=== PATIENT | male | born 1975 | race Caucasian/White ===

== ENCOUNTER → 2016-09-25 | Outpatient (CLI) | payer OTHER ==
[~2016-09-25] MED LIST: ADVIL200 MG PO; ASPIRIN81 M1 PO; ATORVASTATIN CA10 M1 PO; BACTRIM 400 MG-1 TAB PO; BACTRIM DS 8001 TA1 PO; BACTRIM DS 8001 TAB PO; BUMETANIDE2 MG PO; Bactrim Ds 8001 TAB PO; CATAPRES-TTS 30.3 MG T; CELLCEPT250 MG PO; CLONIDINE0.3 MG PO; CORDROL20 MG PO; COREG25 MG PO; DOXYCYCLINE100 M3 PO; DUONEB 3 MG/3 ML3 M1 INH; EFFEXOR37.5 MG PO; FERROUS GLUCON325 M1 PO; FERROUS SULFAT325 M1 PO; FISH OIL1000 MG PO; HUMALOG MIX 50/10 ML; HUMALOG MIX 50/10 ML SC; HUMALOG MIX 50/53 M1 SC; HUMALOG100 U/ML SC; HYDRALAZINE100 MG PO; IMURAN100 MG PO; IMURAN50 MG PO; IRON325 MG PO; LOPRESSOR; LOPRESSOR100 MG PO; MACROBID100 M1 PO; MYFORTIC360 MG PO; NASONEX0.05 MG/AC NAS; NASONEX0.05 MG/AC NS; NEORAL100 MG PO; NEPHROCAPS; NEPHROCAPS1 SGL PO; NORVASC10 MG PO; ORASONE10 MG PO; ORASONE5 MG PO; PHOSLO667 M1 PO; PHOSLO667 MG PO; PREDNISONE10 MG PO; PREDNISONE5 MG PO; PRILOSEC20 M1 PO; PRILOSEC40 MG PO; PROCRIT20000 U/ML IJ; RAPAMUNE1 MG PO; RAPAMUNE2 MG PO; SODIUM BICARBO650 MG PO; SYNTHROID,LEVO25 MCG PO; SYNTHROID0.025 MG PO; Synthroid,Levo25 MCG PO; Synthroid,Levo50 MCG PO; VASOTEC10 MG PO; VASOTEC5 MG PO; VENLAFAXINE H37.5 M5 PO; VICODIN 5/500 505 MG PO; VITAMIN C100 M1 PO; ZOCOR20 MG PO; ZOCOR5 MG; ZOFRAN ODT4 MG SL; ZOFRAN4 MG PO; ZORTRESS0.5 MG PO; [UNRECOGNIZED DRUG - OTHER] PO
[2016-09-25 10:43] LABS: BASO % 0.1 % (0.0-1.0); EOS # 0.1 10*3/uL (0.0-0.4); EOS % 1.3 % (1.0-4.0); HEMATOCRIT 39.5 % (42.0-52.0); HEMOGLOBIN 11.8 g/dl (14.0-18.0); LYMPH # 0.5 10*3/uL (1.3-4.4); MEAN CELL VOLUME 87.4 fl (80.0-94.0); MEAN CORPUSCULAR HGB 26.1 pg (27.0-31.0); MEAN CORPUSCULAR HGB CONC 29.9 g/dl (33.0-37.0); MEAN PLATELET VOLUME 9.5 fl (9.6-12.3); MONO # 0.6 10*3/uL (0.1-1.0); MONO % 8.9 % (3.0-9.0); NEUT # 5.7 10*3/uL (2.3-7.9); NEUT % 82.4 % (47.0-73.0); PLATELET COUNT AUTOMATED 272 10*3/uL (130-400); RED BLOOD COUNT 4.52 10*6/uL (4.50-5.90); RED CELL DISTRI WIDTH 14.6 % (0-14.5); WHITE BLOOD COUNT 6.9 10*3/uL (4.8-10.8)
[2016-09-25 10:49] LABS: URINE TP/CRE RATIO 1.6 (<0.21)
[2016-09-25 11:01] LABS: ALBUMIN 3.5 gm/dl (3.1-4.5); ALKALINE PHOSPHATASE 88 U/L (45-117); BILIRUBIN, TOTAL 0.5 mg/dl (0.2-1.0); BUN 26 mg/dl (7-24); CARBON DIOXIDE 29 mmol/L (21-32); CHLORIDE 106 mmol/L (98-107); EST GLOM FILT AFRICAN AMERICAN > 60 ml/min; GLUCOSE 97 mg/dL (65-99); POTASSIUM 5.4 mmol/L (3.5-5.1); SGOT/AST 29 IU/L (3-35); SGPT/ALT 43 U/L (12-78); SODIUM 144 mmol/L (136-145); TOTAL PROTEIN 6.2 gm/dL (6.4-8.2)
[2016-09-25 11:10] LABS: FREE T4 1.36 ng/dl (0.76-1.46); MAGNESIUM 1.9 mg/dL (1.5-2.1); PHOSPHOROUS 3.2 mg/dL (2.5-4.9); THYROID STIM HORMONE (HS) 1.47 uIU/ml (0.358-4.75); URIC ACID 4.3 mg/dL (3.5-7.2)
[2016-09-26 09:10] LABS: TRANSFERRIN 004937 142 mg/dL (200-370)
[2016-09-26 14:06] LABS: CYCLOSPORINE, BLOOD 355 ng/mL (100-400)
[2016-09-28 00:08] LABS: EVEROLIMUS 7.1 ng/mL (3.0-8.0)
== END | disposition home or self-care (01) ==
LOC: LAB 09:54
PROVIDERS: Surgery
DX: D50.9 Iron deficiency anemia, unspecified (principal); E03.9 Hypothyroidism, unspecified; Z94.0 Kidney transplant status; Z79.899 Other long term (current) drug therapy

== ENCOUNTER → 2016-10-08 | Outpatient (CLI) | payer OTHER ==
[2016-10-08 10:42] LABS: BASO % 0.2 % (0.0-1.0); EOS # 0.1 10*3/uL (0.0-0.4); EOS % 1.6 % (1.0-4.0); HEMATOCRIT 40.4 % (42.0-52.0); HEMOGLOBIN 12.3 g/dl (14.0-18.0); LYMPH # 0.5 10*3/uL (1.3-4.4); LYMPH % 8.3 % (27.0-41.0); MEAN CELL VOLUME 86.7 fl (80.0-94.0); MEAN CORPUSCULAR HGB 26.4 pg (27.0-31.0); MEAN CORPUSCULAR HGB CONC 30.4 g/dl (33.0-37.0); MEAN PLATELET VOLUME 9.2 fl (9.6-12.3); MONO # 0.6 10*3/uL (0.1-1.0); MONO % 10.1 % (3.0-9.0); NEUT # 4.4 10*3/uL (2.3-7.9); NEUT % 79.6 % (47.0-73.0); PLATELET COUNT AUTOMATED 247 10*3/uL (130-400); RED BLOOD COUNT 4.66 10*6/uL (4.50-5.90); RED CELL DISTRI WIDTH 14.4 % (0-14.5); WHITE BLOOD COUNT 5.5 10*3/uL (4.8-10.8)
[2016-10-08 11:02] LABS: URINE TP/CRE RATIO 1.2 (<0.21)
[2016-10-08 11:19] LABS: ALBUMIN 3.8 gm/dl (3.1-4.5); ALKALINE PHOSPHATASE 98 U/L (45-117); BILIRUBIN, TOTAL 0.4 mg/dl (0.2-1.0); BUN 29 mg/dl (7-24); CARBON DIOXIDE 28 mmol/L (21-32); CHLORIDE 110 mmol/L (98-107); CHOLESTEROL 221 mg/dL (<200); EST GLOM FILT AFRICAN AMERICAN > 60 ml/min; FREE T4 1.24 ng/dl (0.76-1.46); GLUCOSE 93 mg/dL (65-99); HDL CHOLESTEROL 62 mg/dl (40-60); IRON 49 ug/dL (65-175); IRON SATURATION 26 %; LDL CHOLESTEROL 124 mg/dL (9-159); MAGNESIUM 1.8 mg/dL (1.5-2.1); POTASSIUM 4.9 mmol/L (3.5-5.1); SGOT/AST 46 IU/L (3-35); SGPT/ALT 61 U/L (12-78); SODIUM 145 mmol/L (136-145); TOTAL PROTEIN 6.5 gm/dL (6.4-8.2); TRIGLYCERIDES 176 mg/dl (<150); UIBC 133 ug/dL (110-410); URIC ACID 4.6 mg/dL (3.5-7.2); VLDL CHOLESTEROL 35 mg/dL (6-40)
[2016-10-09 09:06] LABS: TRANSFERRIN 004937 141 mg/dL (200-370)
[2016-10-09 13:07] LABS: CYCLOSPORINE, BLOOD 413 ng/mL (100-400)
[2016-10-10 18:04] LABS: EVEROLIMUS 7.7 ng/mL (3.0-8.0)
== END | disposition home or self-care (01) ==
LOC: LAB 10:06
DX: D50.9 Iron deficiency anemia, unspecified (principal); Z79.899 Other long term (current) drug therapy; Z94.0 Kidney transplant status

== ENCOUNTER → 2016-12-07 | Outpatient (CLI) | payer OTHER ==
[2016-12-07 10:05] LABS: BASO % 0.1 % (0.0-1.0); EOS # 0.1 10*3/uL (0.0-0.4); EOS % 1.1 % (1.0-4.0); HEMATOCRIT 42.9 % (42.0-52.0); HEMOGLOBIN 13.5 g/dl (14.0-18.0); LYMPH # 0.5 10*3/uL (1.3-4.4); LYMPH % 6.5 % (27.0-41.0); MEAN CELL VOLUME 84.6 fl (80.0-94.0); MEAN CORPUSCULAR HGB 26.6 pg (27.0-31.0); MEAN CORPUSCULAR HGB CONC 31.5 g/dl (33.0-37.0); MEAN PLATELET VOLUME 9.3 fl (9.6-12.3); MONO # 0.6 10*3/uL (0.1-1.0); MONO % 7.6 % (3.0-9.0); NEUT # 6.8 10*3/uL (2.3-7.9); NEUT % 84.5 % (47.0-73.0); PLATELET COUNT AUTOMATED 235 10*3/uL (130-400); RED BLOOD COUNT 5.07 10*6/uL (4.50-5.90); RED CELL DISTRI WIDTH 13.4 % (0-14.5); WHITE BLOOD COUNT 8.1 10*3/uL (4.8-10.8)
[2016-12-07 10:27] LABS: BUN 29 mg/dl (7-24); CARBON DIOXIDE 29 mmol/L (21-32); CHLORIDE 111 mmol/L (98-107); EST GLOM FILT AFRICAN AMERICAN > 60 ml/min; GLUCOSE 96 mg/dL (65-99); POTASSIUM 5.4 mmol/L (3.5-5.1); SODIUM 147 mmol/L (136-145)
== END | disposition home or self-care (01) ==
LOC: LAB 09:48
PROVIDERS: Internal Medicine Nephrology
DX: D50.9 Iron deficiency anemia, unspecified (principal); Z79.899 Other long term (current) drug therapy; Z94.0 Kidney transplant status

== ENCOUNTER → 2016-12-25 | Outpatient (CLI) | payer OTHER ==
[2016-12-25 10:18] LABS: BASO % 0.3 % (0.0-1.0); EOS # 0.1 10*3/uL (0.0-0.4); EOS % 1.4 % (1.0-4.0); HEMATOCRIT 43.5 % (42.0-52.0); HEMOGLOBIN 13.5 g/dl (14.0-18.0); LYMPH # 0.5 10*3/uL (1.3-4.4); LYMPH % 6.1 % (27.0-41.0); MEAN CELL VOLUME 83.8 fl (80.0-94.0); MEAN PLATELET VOLUME 9.2 fl (9.6-12.3); MONO # 0.7 10*3/uL (0.1-1.0); MONO % 8.5 % (3.0-9.0); NEUT # 6.4 10*3/uL (2.3-7.9); NEUT % 83.3 % (47.0-73.0); PLATELET COUNT AUTOMATED 232 10*3/uL (130-400); RED BLOOD COUNT 5.19 10*6/uL (4.50-5.90); RED CELL DISTRI WIDTH 13.5 % (0-14.5); WHITE BLOOD COUNT 7.7 10*3/uL (4.8-10.8)
[2016-12-25 10:48] LABS: ALBUMIN 3.7 gm/dl (3.1-4.5); BILIRUBIN, TOTAL 0.4 mg/dl (0.2-1.0); PHOSPHOROUS 3.2 mg/dL (2.5-4.9); TOTAL PROTEIN 6.5 gm/dL (6.4-8.2)
[2016-12-25 10:49] LABS: URIC ACID 6.2 mg/dL (3.5-7.2)
== END | disposition home or self-care (01) ==
LOC: LAB 10:02
PROVIDERS: Internal Medicine Nephrology
DX: D50.9 Iron deficiency anemia, unspecified (principal); Z94.0 Kidney transplant status; Z79.899 Other long term (current) drug therapy

== ENCOUNTER → 2017-02-11 | Outpatient (CLI) | payer OTHER ==
[2017-02-11 10:57] LABS: BASO % 0.1 % (0.0-1.0); EOS # 0.1 10*3/uL (0.0-0.4); EOS % 1.7 % (1.0-4.0); HEMATOCRIT 43.1 % (42.0-52.0); HEMOGLOBIN 13.4 g/dl (14.0-18.0); LYMPH # 0.6 10*3/uL (1.3-4.4); LYMPH % 7.6 % (27.0-41.0); MEAN CELL VOLUME 83.9 fl (80.0-94.0); MEAN CORPUSCULAR HGB 26.1 pg (27.0-31.0); MEAN CORPUSCULAR HGB CONC 31.1 g/dl (33.0-37.0); MEAN PLATELET VOLUME 9.1 fl (9.6-12.3); MONO # 0.6 10*3/uL (0.1-1.0); MONO % 8.6 % (3.0-9.0); NEUT # 6.1 10*3/uL (2.3-7.9); NEUT % 81.6 % (47.0-73.0); PLATELET COUNT AUTOMATED 236 10*3/uL (130-400); RED BLOOD COUNT 5.14 10*6/uL (4.50-5.90); RED CELL DISTRI WIDTH 14.2 % (0-14.5); WHITE BLOOD COUNT 7.5 10*3/uL (4.8-10.8)
[2017-02-11 11:00] LABS: URINE TP/CRE RATIO 0.9 (<0.21)
[2017-02-11 11:16] LABS: HEMOGLOBIN A1c 5.7 % (4.8-5.6)
[2017-02-11 11:24] LABS: ALBUMIN 3.7 gm/dl (3.1-4.5); MAGNESIUM 1.6 mg/dL (1.5-2.1); POTASSIUM 5.7 mmol/L (3.5-5.1)
[2017-02-11 11:30] LABS: BILIRUBIN, TOTAL 0.5 mg/dl (0.2-1.0); PHOSPHOROUS 3.4 mg/dL (2.5-4.9); TOTAL PROTEIN 7.1 gm/dL (6.4-8.2); URIC ACID 5.6 mg/dL (3.5-7.2)
[2017-02-11 13:20] LABS: PTH INTACT 121.2 pg/mL (14.0-72.0)
[2017-02-12 08:11] LABS: TRANSFERRIN 004937 145 mg/dL (200-370)
[2017-02-12 15:09] LABS: CYCLOSPORINE, BLOOD 553 ng/mL (100-400)
[2017-02-13 16:11] LABS: EVEROLIMUS 8.5 ng/mL (3.0-8.0)
== END | disposition home or self-care (01) ==
LOC: LAB 10:30
PROVIDERS: Internal Medicine Nephrology
DX: D50.9 Iron deficiency anemia, unspecified (principal); Z79.899 Other long term (current) drug therapy; Z94.0 Kidney transplant status

== ENCOUNTER → 2017-02-21 | Outpatient (CLI) | payer OTHER ==
[2017-02-21 10:30] LABS: BASO % 0.1 % (0.0-1.0); EOS # 0.1 10*3/uL (0.0-0.4); EOS % 1.3 % (1.0-4.0); HEMATOCRIT 39.7 % (42.0-52.0); HEMOGLOBIN 12.6 g/dl (14.0-18.0); LYMPH # 0.6 10*3/uL (1.3-4.4); LYMPH % 6.3 % (27.0-41.0); MEAN CELL VOLUME 83.1 fl (80.0-94.0); MEAN CORPUSCULAR HGB 26.4 pg (27.0-31.0); MEAN CORPUSCULAR HGB CONC 31.7 g/dl (33.0-37.0); MEAN PLATELET VOLUME 9.2 fl (9.6-12.3); MONO # 0.8 10*3/uL (0.1-1.0); MONO % 8.8 % (3.0-9.0); NEUT # 7.9 10*3/uL (2.3-7.9); NEUT % 83.3 % (47.0-73.0); PLATELET COUNT AUTOMATED 279 10*3/uL (130-400); RED BLOOD COUNT 4.78 10*6/uL (4.50-5.90); RED CELL DISTRI WIDTH 14.4 % (0-14.5); WHITE BLOOD COUNT 9.5 10*3/uL (4.8-10.8)
[2017-02-21 10:35] LABS: BILIRUBIN NEGATIVE (NEGATIVE); BLOOD TRACE-INTACT (NEGATIVE); CLARITY SL CLOUDY (CLEAR); COLOR YELLOW (YELLOW); GLUCOSE NEGATIVE (NEGATIVE); KETONE NEGATIVE (NEGATIVE); LEUKO ESTERASE 3+ (NEGATIVE); NITRITE NEGATIVE (NEGATIVE); PH 6.5 (5.0-9.0); PROTEIN 1+ (NEGATIVE); UROBILINOGEN 0.2 E.U./dl (0.2-1.0)
[2017-02-21 10:42] LABS: URINE TP/CRE RATIO 1.5 (<0.21)
[2017-02-21 10:58] LABS: ALBUMIN 3.5 gm/dl (3.1-4.5); BILIRUBIN, TOTAL 0.5 mg/dl (0.2-1.0); POTASSIUM 5.2 mmol/L (3.5-5.1); TOTAL PROTEIN 6.5 gm/dL (6.4-8.2)
[2017-02-21 12:01] LABS: WBC 51-100 wbc/hpf (0-5)
[2017-02-21 12:02] LABS: BACTERIA 1+; MUCOUS 1+; RBC 16-20 rbc/hpf (0-2)
== END | disposition home or self-care (01) ==
LOC: LAB 10:01
PROVIDERS: Internal Medicine Nephrology
DX: I12.0 Hypertensive chronic kidney disease with stage 5 chronic kidney disease or end stage renal disease (principal); N18.6 End stage renal disease; I25.10 Atherosclerotic heart disease of native coronary artery without angina pectoris; E78.5 Hyperlipidemia, unspecified; E03.9 Hypothyroidism, unspecified; D50.9 Iron deficiency anemia, unspecified; Z79.899 Other long term (current) drug therapy; Z94.0 Kidney transplant status

== ENCOUNTER 2017-03-01 13:53 | Inpatient (IN) | payer OTHER ==
[~2017-03-01] VITALS: Ht 180.3 cm; Wt 65.5 kg
--- NOTE | ~2017-03-01 | CON ---
[place], [place] REPORT OF CONSULTATION NAME: PAUL JANE [facility] #: [id number] UNIT #: [id number] ROOM: 512 DOCTOR: LORENZO DOLL MD BIRTHDATE: [birth year] DOS: 03/02/2017 NEPHROLOGY CONSULTATION REASON FOR CONSULTATION: Elevated creatinine/history of kidney and pancreas transplant. HISTORY OF PRESENT ILLNESS: The patient is a 41-year-old male. He has a history of a renal and pancreas transplant. The details are not quite clear. The patient reports he had his transplant in [facility]. This is his second transplant apparently. This occurred in 2014. He has a history of longstanding diabetes. The patient is on 3 immunosuppressive agents that includes 75 mg twice a day, prednisone 5 mg daily and Zortress 0.5 mg 3 tablets twice a day. His baseline creatinine on my review of the records seems to be somewhere in the middle to upper 1s range. 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 He follows with renal group in [place]. Apparently, he presented to the hospital with symptoms of UTI and severe fatigue and fever 102 at home. He had noted chills, some poor appetite, headaches, shortness of breath and fatigue. When he presented, he had an elevated white count and urinalysis seemed concerning for urine infection. He was admitted, started on IV antibiotics. The patient had a CT scan without contrast, which showed no abnormalities noted of the renal transplant. No hydronephrosis. There was a question of pneumonia, however. He clinically has improved with fluids and antibiotics. He still is having some dysuria, however, explained to me. He denied current chest pain, shortness of breath, nausea or vomiting. He is compliant with his medications. ALLERGIES: No known drug allergies. HOME MEDICATIONS: Included aspirin, Coreg, 75 mg twice a day, Zortress 1.5 mg twice a day, DuoNeb, levothyroxine, Nasonex, Prilosec, prednisone 5 mg daily, sodium bicarbonate tablets twice a day, Bactrim daily, Flomax daily. PAST MEDICAL HISTORY: 1. End-stage renal disease, previously on dialysis. 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 Most recent transplant in 2014. 2. Coronary artery disease, status post stenting. 3. History of longstanding diabetes. 4. GERD. 5. Metabolic acidosis. 6. Dialysis catheter insertion and removal. 7. Transplant nephrectomy and pancreatectomy. FAMILY HISTORY: Negative for chronic kidney disease, otherwise noncontributory. SOCIAL HISTORY: No tobacco, alcohol or illicit drugs. REVIEW OF SYSTEMS: As per HPI, otherwise a 10-point review of systems was reviewed and was negative. [place], [place] REPORT OF CONSULTATION NAME: PAUL JANE UNIT #: [id number] ROOM: 512 DOCTOR: LORENZO DOLL MD BIRTHDATE: [birth year] PHYSICAL EXAMINATION: VITAL SIGNS: Temperature 97.4, pulse 83, respiratory rate 20, blood pressure 131/61. GENERAL: He is pleasant, alert, awake, oriented x 3, no acute distress. HEENT: Shows no JVD. Sclerae are anicteric. Mucous membranes are moist. Pharynx is clear. NECK: Supple. Trachea is midline. There is no neck lymphadenopathy. There is no thyromegaly. LUNGS: Diminished breath sounds. No appreciable wheezes, not using accessory muscles of respiration. HEART: Normal S1, S2. No rub, no thrill, no gallop. ABDOMEN: Soft, nontender. There is no organomegaly or rigidity. There is no rebound or guarding. There is no CVA tenderness. EXTREMITIES: Had no edema. There is no lower extremity lymphadenopathy. Distal pulses are 2+. SKIN: Showed no overt rash. There are no petechiae or purpura. Skin temperature is warm. NEUROLOGIC: He is awake and alert. He is following commands. Cranial nerves are intact. LABORATORY DATA: Reviewed. Urine culture was negative to date. BUN 38, creatinine 1.85, sodium 142, potassium 4.8, CO2 of 24, calcium 7.7, phosphorus 2.9, magnesium 1.5, hemoglobin 10.9, white count of 12.8, platelets of 187. IMPRESSION: 1. Status post simultaneous pancreas and kidney transplant with baseline creatinine appears to be in the middle to upper ones range. 2. Fever with questionable urinary tract infection/urosepsis. There is a questionable pneumonia as well noted on imaging study. 3. Anemia. 4. Longstanding diabetes mellitus, now status post pancreas transplant. 5. Hypothyroidism. 6. Coronary artery disease. 7. Metabolic acidosis, controlled with bicarb tablets. PLAN: 1. Continue venous supression. 2. Follow cultures. 3. Dose medication for current creatinine clearance. 4. Avoid contrast study. 5. Replace electrolytes as needed. 6. Would avoid Lovenox and change to subQ heparin for DVT prophylaxis. Thank you for this consultation. We will follow with you. [place], [place] REPORT OF CONSULTATION NAME: LUCINDAPAUL Jameson UNIT #: [id number] ROOM: [facility] DOCTOR: LORENZO DOLL MD BIRTHDATE: [birth year] LORENZO DOLL MD CM:CONSTR:REPORT OF CONSULTATION 1618 03/03/17 1014 interface
--- NOTE | ~2017-03-01 | PR ---
[place], [place] PROGRESS NOTE NAME: PAUL JANE UNIT #: [id number] ROOM: 512 DOCTOR: SHARMILA LOUISLORENZO Welch BIRTHDATE: [birth year] DOS: SUBJECTIVE: The patient was seen and examined. He is awake and alert. Denies shortness of breath, nausea or vomiting. He does state that he is feeling better. He has not had fevers, chills or night sweats. Fluids are ongoing. He denied feeling bloated. PHYSICAL EXAMINATION: VITAL SIGNS: Temperature 97.6, pulse 78, respiratory rate 18, blood pressure 150/70. HEENT: Shows no JVD. LUNGS: Fairly clear. HEART: Normal S1, S2. No rub, thrill or gallop. ABDOMEN: Soft and nontender. I do not appreciate organomegaly. EXTREMITIES: Showed no edema. SKIN: Showed no rash. LABORATORY DATA: Hemoglobin 11.0, white count of 8.7, platelets of 186. Sodium 147, potassium 5.0, CO2 of 22, BUN 35, creatinine 1.6, glucose 104, calcium 8.3. Urine culture showed no growth to date. Blood cultures showed no growth to date. IMPRESSION AND PLAN: 1. Status post simultaneous pancreas-kidney transplant, baseline creatinine appears to be in the middle to upper ones range. The patient's renal function is stable and at baseline. He is to continue his current immunosuppression. We would discontinue IV fluids at this point. He has mild hypernatremia. Encourage oral fluid intake. 2. Fever with questionable urinary tract infection/sepsis/pneumonia. Culture data has been negative to date. Continue to follow cultures. He symptomatically and clinically has improved with antibiotics. Continue antibiotics for now. Would check a cyclosporine level at some point, but no change to dosages of the patient's immunosuppression. 3. Anemia. Follow H and H. Transfuse as needed. 4. Hypothyroidism. Continue meds. 5. Coronary artery disease. Stable. 6. Metabolic acidosis. Bicarbonate tablets, we will continue. 7. Hypertension. Continue medications. Adjust as needed. 8. Deep venous thrombosis prophylaxis. We would recommend not using Lovenox and use subQ heparin. [place], [place] PROGRESS NOTE [id number] #: [id number] ROOM: 512 DOCTOR: LORENZO DOLL MD BIRTHDATE: [birth year] LORENZO DOLL MD CM:PNTRANS [id number] LORENZO DOLL MD 03/04/170 interface
[2017-03-01 13:55] VITALS: BP 171/78
[2017-03-01] MEDS ORDERED: NORVASC5 MG PO (14:02)
[2017-03-01] MEDS ORDERED: BACTRIM DS 8001 TA1 PO (14:03)
[2017-03-01 14:22] VITALS: BP 172/77
[2017-03-01 14:27] LABS: BILIRUBIN NEGATIVE (NEGATIVE); BLOOD TRACE-LYSED (NEGATIVE); CLARITY SL CLOUDY (CLEAR); COLOR YELLOW (YELLOW); GLUCOSE NEGATIVE (NEGATIVE); KETONE NEGATIVE (NEGATIVE); LEUKO ESTERASE 3+ (NEGATIVE); NITRITE NEGATIVE (NEGATIVE); PH 7.5 (5.0-9.0); PROTEIN 1+ (NEGATIVE); SPECIFIC GRAVITY 1.015 (1.005-1.030); UROBILINOGEN 0.2 E.U./dl (0.2-1.0)
[2017-03-01 14:36] LABS: HEMATOCRIT 40.1 % (42.0-52.0); HEMOGLOBIN 12.7 g/dl (14.0-18.0); MEAN CORPUSCULAR HGB 26.3 pg (27.0-31.0); MEAN CORPUSCULAR HGB CONC 31.7 g/dl (33.0-37.0); MEAN PLATELET VOLUME 9.7 fl (9.6-12.3); PLATELET COUNT AUTOMATED 209 10*3/uL (130-400); RED BLOOD COUNT 4.83 10*6/uL (4.50-5.90); RED CELL DISTRI WIDTH 14.6 % (0-14.5); WHITE BLOOD COUNT 14.5 10*3/uL (4.8-10.8)
[2017-03-01 14:45] LABS: PROTHROMBIN TIME 10.5 SECONDS (9.0-12.4)
[2017-03-01 14:52] LABS: ALBUMIN 3.6 gm/dl (3.1-4.5); ALKALINE PHOSPHATASE 92 U/L (45-117); BILIRUBIN, TOTAL 0.5 mg/dl (0.2-1.0); BUN 37 mg/dl (7-24); CARBON DIOXIDE 25 mmol/L (21-32); CHLORIDE 111 mmol/L (98-107); EST GLOM FILT AFRICAN AMERICAN 54 ml/min; GLUCOSE 109 mg/dL (65-99); POTASSIUM 4.8 mmol/L (3.5-5.1); SGOT/AST 46 IU/L (3-35); SGPT/ALT 62 U/L (12-78); SODIUM 144 mmol/L (136-145); TOTAL PROTEIN 6.4 gm/dL (6.4-8.2)
[2017-03-01 14:55] LABS: TROPONIN I < 0.015 ng/ml (<0.045)
[2017-03-01 14:58] LABS: BACTERIA 2+; EPITHELIAL CELLS 0-2; MUCOUS 1+; RBC 0-2 rbc/hpf (0-2); URINE REFLEX COMMENT YES (NO); WBC 21-30 wbc/hpf (0-5)
[2017-03-01 15:00] LABS: LYMPHOCYTE # 0.1 10*3/uL (1.3-4.4); MONOCYTE # 0.7 10*3/uL (0.1-1.0); NEUTROPHIL # 13.6 10*3/uL (2.3-7.9); NEUTROPHILS 94 % (47-73); PLATELET SUFFICIENCY NORMAL (NORMAL); TOTAL CELLS COUNTED 100 #CELLS
[2017-03-01 16:37] VITALS: BP 150/70
[2017-03-01] MEDS ORDERED: FLOMAX0.4 MG PO (16:37)
[2017-03-01 17:13] VITALS: BP 127/63
[2017-03-01] MEDS ORDERED: NASONEX0.05 MG/AC NAS (17:21)
[2017-03-01] MEDS ORDERED: LUTEIN6 M2 PO (17:25)
[2017-03-01 18:40] LABS: CKMB 0.6 ng/ml (0.5-3.6)
[2017-03-01] MEDS ORDERED: ZORTRESS0.5 MG PO (19:21)
[2017-03-01 20:00] VITALS: BP 133/61
[2017-03-02] VITALS: BP 110/57
[2017-03-02 00:21] LABS: CKMB < 0.5 ng/ml (0.5-3.6); CPK 105 U/L (39-308)
[2017-03-02 06:31] LABS: BASO % 0.1 % (0.0-1.0); EOS # 0.1 10*3/uL (0.0-0.4); EOS % 0.5 % (1.0-4.0); HEMATOCRIT 35.6 % (42.0-52.0); HEMOGLOBIN 10.9 g/dl (14.0-18.0); LYMPH # 0.4 10*3/uL (1.3-4.4); LYMPH % 2.9 % (27.0-41.0); MEAN CORPUSCULAR HGB 25.7 pg (27.0-31.0); MEAN CORPUSCULAR HGB CONC 30.6 g/dl (33.0-37.0); MEAN PLATELET VOLUME 9.9 fl (9.6-12.3); MONO % 7.6 % (3.0-9.0); NEUT # 11.3 10*3/uL (2.3-7.9); NEUT % 88.7 % (47.0-73.0); PLATELET COUNT AUTOMATED 187 10*3/uL (130-400); RED BLOOD COUNT 4.24 10*6/uL (4.50-5.90); RED CELL DISTRI WIDTH 14.8 % (0-14.5); WHITE BLOOD COUNT 12.8 10*3/uL (4.8-10.8)
[2017-03-02 06:46] LABS: CPK 82 U/L (39-308)
[2017-03-02 06:52] LABS: HEMOGLOBIN A1c 5.7 % (4.8-5.6)
[2017-03-02 06:54] LABS: CKMB < 0.5 ng/ml (0.5-3.6)
[2017-03-02 07:04] LABS: INTERNATIONAL NORM RATIO 1.1 (2.0-3.5); PROTHROMBIN TIME 11.4 SECONDS (9.0-12.4)
[2017-03-02 07:05] LABS: ALBUMIN 2.8 gm/dl (3.1-4.5); BILIRUBIN, TOTAL 0.4 mg/dl (0.2-1.0); FREE T4 1.03 ng/dl (0.76-1.46); MAGNESIUM 1.5 mg/dL (1.5-2.1); PHOSPHOROUS 2.9 mg/dL (2.5-4.9); POTASSIUM 4.8 mmol/L (3.5-5.1); TOTAL PROTEIN 5.4 gm/dL (6.4-8.2)
[2017-03-02 07:11] LABS: THYROID STIM HORMONE (HS) 0.435 uIU/ml (0.358-4.75)
[2017-03-02 08:00] VITALS: BP 118/62
[2017-03-02 08:37] LABS: VITAMIN D, 25-HYDROXY 5.1 ng/mL (30-100)
[2017-03-02 08:38] LABS: FOLIC ACID 4.08 ng/mL (>5.38)
[2017-03-02 12:00] VITALS: BP 116/59
[2017-03-02 16:00] VITALS: BP 131/61
[2017-03-02 20:00] VITALS: BP 152/60
[2017-03-03] VITALS: BP 152/80
[2017-03-03 06:11] LABS: EOS # 0.1 10*3/uL (0.0-0.4); EOS % 0.8 % (1.0-4.0); HEMATOCRIT 36.5 % (42.0-52.0); LYMPH # 0.6 10*3/uL (1.3-4.4); LYMPH % 7.1 % (27.0-41.0); MEAN CELL VOLUME 85.1 fl (80.0-94.0); MEAN CORPUSCULAR HGB 25.6 pg (27.0-31.0); MEAN CORPUSCULAR HGB CONC 30.1 g/dl (33.0-37.0); MEAN PLATELET VOLUME 10.3 fl (9.6-12.3); MONO # 0.9 10*3/uL (0.1-1.0); MONO % 10.6 % (3.0-9.0); NEUT # 7.1 10*3/uL (2.3-7.9); NEUT % 81.3 % (47.0-73.0); PLATELET COUNT AUTOMATED 186 10*3/uL (130-400); RED BLOOD COUNT 4.29 10*6/uL (4.50-5.90); RED CELL DISTRI WIDTH 14.6 % (0-14.5); WHITE BLOOD COUNT 8.7 10*3/uL (4.8-10.8)
[2017-03-03 08:00] VITALS: BP 160/88
[2017-03-03 12:00] VITALS: BP 150/70
[2017-03-03 16:00] VITALS: BP 153/59
[2017-03-03 20:00] VITALS: BP 148/67
[2017-03-04] VITALS: BP 160/89
[2017-03-04 08:00] VITALS: BP 176/71
[2017-03-04] MEDS ORDERED: PHARMASSURE FO0.4 MG PO (10:25)
[2017-03-04] MEDS ORDERED: VITAMIN D350000 UNIT PO (10:28)
[2017-03-04] MEDS ORDERED: AVPAK AZITHROM250 MG PO (10:28)
== END 2017-03-04 12:12 | disposition home or self-care (01) | DRG 871 ==
LOC: ED 13:53 → EDHOLD 16:30 → 5E 16:30
PROVIDERS: Emergency Medicine; Internal Medicine
DX: A41.9 Sepsis, unspecified organism (principal); J15.6 Pneumonia due to other Gram-negative bacteria; E43 Unspecified severe protein-calorie malnutrition; Z94.83 Pancreas transplant status; E11.22 Type 2 diabetes mellitus with diabetic chronic kidney disease; B44.81 Allergic bronchopulmonary aspergillosis; N39.0 Urinary tract infection, site not specified; Z94.0 Kidney transplant status; R65.20 Severe sepsis without septic shock; E87.8 Other disorders of electrolyte and fluid balance, not elsewhere classified; E03.9 Hypothyroidism, unspecified; N18.3 Chronic kidney disease, stage 3 (moderate); K21.9 Gastro-esophageal reflux disease without esophagitis; J40 Bronchitis, not specified as acute or chronic; D64.9 Anemia, unspecified; I25.10 Atherosclerotic heart disease of native coronary artery without angina pectoris; I25.2 Old myocardial infarction; Z95.5 Presence of coronary angioplasty implant and graft; Z82.49 Family history of ischemic heart disease and other diseases of the circulatory system; Z83.3 Family history of diabetes mellitus; Z79.82 Long term (current) use of aspirin; Z79.899 Other long term (current) drug therapy

== ENCOUNTER → 2017-03-12 | Outpatient (CLI) | payer OTHER ==
[~2017-03-12] MED LIST changes: +AVPAK AZITHROM250 MG PO; +FLOMAX0.4 MG PO; +LUTEIN6 M2 PO; +NORVASC5 MG PO; +PHARMASSURE FO0.4 MG PO; +VITAMIN D350000 UNIT PO
[2017-03-12 09:57] LABS: BASO % 0.2 % (0.0-1.0); EOS # 0.1 10*3/uL (0.0-0.4); EOS % 1.2 % (1.0-4.0); HEMATOCRIT 39.6 % (42.0-52.0); HEMOGLOBIN 12.2 g/dl (14.0-18.0); LYMPH # 0.6 10*3/uL (1.3-4.4); LYMPH % 11.4 % (27.0-41.0); MEAN CELL VOLUME 84.6 fl (80.0-94.0); MEAN CORPUSCULAR HGB 26.1 pg (27.0-31.0); MEAN CORPUSCULAR HGB CONC 30.8 g/dl (33.0-37.0); MEAN PLATELET VOLUME 9.2 fl (9.6-12.3); MONO # 0.6 10*3/uL (0.1-1.0); MONO % 11.2 % (3.0-9.0); NEUT # 3.8 10*3/uL (2.3-7.9); NEUT % 75.2 % (47.0-73.0); PLATELET COUNT AUTOMATED 313 10*3/uL (130-400); RED BLOOD COUNT 4.68 10*6/uL (4.50-5.90); RED CELL DISTRI WIDTH 14.6 % (0-14.5); WHITE BLOOD COUNT 5.1 10*3/uL (4.8-10.8)
[2017-03-12 10:12] LABS: BILIRUBIN NEGATIVE (NEGATIVE); BLOOD NEGATIVE (NEGATIVE); CLARITY SL CLOUDY (CLEAR); COLOR YELLOW (YELLOW); GLUCOSE NEGATIVE (NEGATIVE); KETONE NEGATIVE (NEGATIVE); LEUKO ESTERASE 3+ (NEGATIVE); NITRITE NEGATIVE (NEGATIVE); PROTEIN 1+ (NEGATIVE); SPECIFIC GRAVITY <= 1.005 (1.005-1.030); UROBILINOGEN 0.2 E.U./dl (0.2-1.0)
[2017-03-12 10:27] LABS: POTASSIUM 5.2 mmol/L (3.5-5.1)
[2017-03-12 11:04] LABS: BACTERIA 1+; MUCOUS 1+; WBC 16-20 wbc/hpf (0-5)
== END | disposition home or self-care (01) ==
LOC: LAB 09:29
PROVIDERS: Internal Medicine Nephrology
DX: I25.10 Atherosclerotic heart disease of native coronary artery without angina pectoris (principal); I10 Essential (primary) hypertension; E78.5 Hyperlipidemia, unspecified; E03.9 Hypothyroidism, unspecified; R05 Cough; D50.9 Iron deficiency anemia, unspecified; Z79.899 Other long term (current) drug therapy; Z94.0 Kidney transplant status

== ENCOUNTER → 2017-03-29 | Outpatient (CLI) | payer OTHER ==
[2017-03-29 09:55] LABS: BASO % 0.1 % (0.0-1.0); EOS # 0.1 10*3/uL (0.0-0.4); EOS % 1.6 % (1.0-4.0); HEMATOCRIT 40.6 % (42.0-52.0); HEMOGLOBIN 12.5 g/dl (14.0-18.0); LYMPH # 0.6 10*3/uL (1.3-4.4); LYMPH % 8.8 % (27.0-41.0); MEAN CELL VOLUME 85.7 fl (80.0-94.0); MEAN CORPUSCULAR HGB 26.4 pg (27.0-31.0); MEAN CORPUSCULAR HGB CONC 30.8 g/dl (33.0-37.0); MEAN PLATELET VOLUME 9.4 fl (9.6-12.3); MONO # 0.7 10*3/uL (0.1-1.0); NEUT # 5.3 10*3/uL (2.3-7.9); NEUT % 79.4 % (47.0-73.0); PLATELET COUNT AUTOMATED 191 10*3/uL (130-400); RED BLOOD COUNT 4.74 10*6/uL (4.50-5.90); RED CELL DISTRI WIDTH 14.8 % (0-14.5); WHITE BLOOD COUNT 6.7 10*3/uL (4.8-10.8)
[2017-04-01 15:07] LABS: CYCLOSPORINE, BLOOD 540 ng/mL (100-400)
== END | disposition home or self-care (01) ==
LOC: LAB 09:26
PROVIDERS: Internal Medicine Nephrology
DX: D50.9 Iron deficiency anemia, unspecified (principal); Z94.0 Kidney transplant status; Z79.899 Other long term (current) drug therapy

== ENCOUNTER → 2017-04-11 | Outpatient (CLI) | payer OTHER ==
[2017-04-11 09:53] LABS: BASO % 0.1 % (0.0-1.0); EOS # 0.1 10*3/uL (0.0-0.4); EOS % 1.2 % (1.0-4.0); HEMOGLOBIN 12.7 g/dl (14.0-18.0); LYMPH # 0.7 10*3/uL (1.3-4.4); LYMPH % 10.1 % (27.0-41.0); MEAN CORPUSCULAR HGB 26.7 pg (27.0-31.0); MEAN CORPUSCULAR HGB CONC 31.8 g/dl (33.0-37.0); MEAN PLATELET VOLUME 9.1 fl (9.6-12.3); MONO # 0.7 10*3/uL (0.1-1.0); MONO % 10.1 % (3.0-9.0); NEUT # 5.3 10*3/uL (2.3-7.9); NEUT % 78.2 % (47.0-73.0); PLATELET COUNT AUTOMATED 210 10*3/uL (130-400); RED BLOOD COUNT 4.76 10*6/uL (4.50-5.90); RED CELL DISTRI WIDTH 14.4 % (0-14.5); WHITE BLOOD COUNT 6.8 10*3/uL (4.8-10.8)
[2017-04-11 10:19] LABS: POTASSIUM 4.9 mmol/L (3.5-5.1)
== END | disposition home or self-care (01) ==
LOC: LAB 09:39
PROVIDERS: Internal Medicine Nephrology
DX: D50.9 Iron deficiency anemia, unspecified (principal); Z79.899 Other long term (current) drug therapy; Z94.0 Kidney transplant status

== ENCOUNTER → 2017-04-30 | Outpatient (CLI) | payer OTHER ==
[2017-04-30 09:44] LABS: BASO % 0.3 % (0.0-1.0); EOS # 0.1 10*3/uL (0.0-0.4); EOS % 1.5 % (1.0-4.0); HEMATOCRIT 42.3 % (42.0-52.0); HEMOGLOBIN 13.1 g/dl (14.0-18.0); LYMPH # 0.7 10*3/uL (1.3-4.4); LYMPH % 12.1 % (27.0-41.0); MEAN CELL VOLUME 84.4 fl (80.0-94.0); MEAN CORPUSCULAR HGB 26.1 pg (27.0-31.0); MEAN PLATELET VOLUME 9.6 fl (9.6-12.3); MONO # 0.7 10*3/uL (0.1-1.0); MONO % 11.6 % (3.0-9.0); NEUT # 4.4 10*3/uL (2.3-7.9); NEUT % 74.3 % (47.0-73.0); PLATELET COUNT AUTOMATED 217 10*3/uL (130-400); RED BLOOD COUNT 5.01 10*6/uL (4.50-5.90); WHITE BLOOD COUNT 5.9 10*3/uL (4.8-10.8)
[2017-04-30 10:12] LABS: ALBUMIN 3.7 gm/dl (3.1-4.5); BILIRUBIN, TOTAL 0.4 mg/dl (0.2-1.0); MAGNESIUM 1.7 mg/dL (1.5-2.1); PHOSPHOROUS 3.6 mg/dL (2.5-4.9); POTASSIUM 4.8 mmol/L (3.5-5.1); TOTAL PROTEIN 6.4 gm/dL (6.4-8.2); URIC ACID 6.5 mg/dL (3.5-7.2)
[2017-05-01 07:06] LABS: TRANSFERRIN 004937 142 mg/dL (200-370)
[2017-05-01 14:11] LABS: CYCLOSPORINE, BLOOD 384 ng/mL (100-400)
[2017-05-02 13:05] LABS: EVEROLIMUS 6.5 ng/mL (3.0-8.0)
== END | disposition home or self-care (01) ==
LOC: LAB 09:06
PROVIDERS: Internal Medicine Nephrology
DX: D50.9 Iron deficiency anemia, unspecified (principal); Z79.899 Other long term (current) drug therapy; Z94.0 Kidney transplant status

== ENCOUNTER → 2017-05-24 | Outpatient (CLI) | payer OTHER ==
[2017-05-24 09:53] LABS: BASO % 0.2 % (0.0-1.0); EOS # 0.1 10*3/uL (0.0-0.4); EOS % 1.1 % (1.0-4.0); HEMATOCRIT 43.2 % (42.0-52.0); HEMOGLOBIN 13.9 g/dl (14.0-18.0); LYMPH # 0.7 10*3/uL (1.3-4.4); LYMPH % 11.2 % (27.0-41.0); MEAN CELL VOLUME 83.6 fl (80.0-94.0); MEAN CORPUSCULAR HGB 26.9 pg (27.0-31.0); MEAN CORPUSCULAR HGB CONC 32.2 g/dl (33.0-37.0); MEAN PLATELET VOLUME 9.5 fl (9.6-12.3); MONO # 0.7 10*3/uL (0.1-1.0); MONO % 10.6 % (3.0-9.0); NEUT # 4.8 10*3/uL (2.3-7.9); NEUT % 76.6 % (47.0-73.0); PLATELET COUNT AUTOMATED 188 10*3/uL (130-400); RED BLOOD COUNT 5.17 10*6/uL (4.50-5.90); RED CELL DISTRI WIDTH 12.9 % (0-14.5); WHITE BLOOD COUNT 6.3 10*3/uL (4.8-10.8)
[2017-05-24 09:55] LABS: URINE CREATININE RANDOM 82.5 mg/dL
[2017-05-24 10:19] LABS: ALBUMIN 3.5 gm/dl (3.1-4.5); CREATININE 2.22 mg/dL (0.70-1.30); MAGNESIUM 1.9 mg/dL (1.5-2.1); POTASSIUM 4.8 mmol/L (3.5-5.1); TOTAL PROTEIN 6.3 gm/dL (6.4-8.2)
[2017-05-24 12:18] LABS: FERRITIN 618.4 ng/mL (22.0-322.0); PTH INTACT 119.4 pg/mL (14.0-72.0)
[2017-05-25 07:06] LABS: TRANSFERRIN 004937 129 mg/dL (200-370)
[2017-05-27 21:05] LABS: BK QUANTITATION PCR Negative (Negative)
[2017-05-28 16:08] LABS: CYCLOSPORINE, BLOOD 625 ng/mL (100-400)
== END | disposition home or self-care (01) ==
LOC: LAB 09:11
PROVIDERS: Internal Medicine Nephrology
DX: D50.9 Iron deficiency anemia, unspecified (principal); Z79.899 Other long term (current) drug therapy; Z94.0 Kidney transplant status

== ENCOUNTER → 2017-06-05 | Outpatient (CLI) | payer OTHER ==
[2017-06-05 11:31] LABS: BASO % 0.2 % (0.0-1.0); EOS # 0.1 10*3/uL (0.0-0.4); EOS % 1.3 % (1.0-4.0); HEMATOCRIT 41.5 % (42.0-52.0); HEMOGLOBIN 13.2 g/dl (14.0-18.0); LYMPH # 0.8 10*3/uL (1.3-4.4); LYMPH % 14.1 % (27.0-41.0); MEAN CORPUSCULAR HGB 26.7 pg (27.0-31.0); MEAN CORPUSCULAR HGB CONC 31.8 g/dl (33.0-37.0); MEAN PLATELET VOLUME 9.3 fl (9.6-12.3); MONO # 0.8 10*3/uL (0.1-1.0); MONO % 14.8 % (3.0-9.0); NEUT # 3.8 10*3/uL (2.3-7.9); NEUT % 69.2 % (47.0-73.0); PLATELET COUNT AUTOMATED 214 10*3/uL (130-400); RED BLOOD COUNT 4.94 10*6/uL (4.50-5.90); RED CELL DISTRI WIDTH 13.3 % (0-14.5); WHITE BLOOD COUNT 5.5 10*3/uL (4.8-10.8)
[2017-06-05 11:45] LABS: BILIRUBIN 1+ (NEGATIVE); BLOOD TRACE-INTACT (NEGATIVE); CLARITY CLEAR (CLEAR); COLOR GREEN (YELLOW); GLUCOSE NEGATIVE (NEGATIVE); KETONE NEGATIVE (NEGATIVE); LEUKO ESTERASE 3+ (NEGATIVE); NITRITE NEGATIVE (NEGATIVE); PH 7.5 (5.0-9.0); UROBILINOGEN 0.2 E.U./dl (0.2-1.0)
[2017-06-05 11:55] LABS: ALBUMIN 3.5 gm/dl (3.1-4.5); CREATININE 2.17 mg/dL (0.70-1.30); POTASSIUM 4.5 mmol/L (3.5-5.1); TOTAL PROTEIN 6.1 gm/dL (6.4-8.2)
[2017-06-05 11:57] LABS: BACTERIA TRACE; MUCOUS 1+
== END | disposition home or self-care (01) ==
LOC: LAB 11:02
PROVIDERS: Internal Medicine Nephrology
DX: I25.10 Atherosclerotic heart disease of native coronary artery without angina pectoris (principal); E03.9 Hypothyroidism, unspecified; E78.5 Hyperlipidemia, unspecified; I10 Essential (primary) hypertension; Z94.0 Kidney transplant status

== ENCOUNTER → 2017-06-25 | Outpatient (CLI) | payer OTHER ==
[2017-06-25 10:10] LABS: BASO % 0.1 % (0.0-1.0); EOS # 0.1 10*3/uL (0.0-0.4); EOS % 0.6 % (1.0-4.0); HEMATOCRIT 39.9 % (42.0-52.0); HEMOGLOBIN 12.7 g/dl (14.0-18.0); LYMPH # 0.6 10*3/uL (1.3-4.4); LYMPH % 6.1 % (27.0-41.0); MEAN CELL VOLUME 82.6 fl (80.0-94.0); MEAN CORPUSCULAR HGB 26.3 pg (27.0-31.0); MEAN CORPUSCULAR HGB CONC 31.8 g/dl (33.0-37.0); MEAN PLATELET VOLUME 9.1 fl (9.6-12.3); MONO # 0.6 10*3/uL (0.1-1.0); MONO % 6.9 % (3.0-9.0); NEUT # 7.8 10*3/uL (2.3-7.9); PLATELET COUNT AUTOMATED 230 10*3/uL (130-400); RED BLOOD COUNT 4.83 10*6/uL (4.50-5.90); RED CELL DISTRI WIDTH 13.4 % (0-14.5)
[2017-06-25 10:28] LABS: URINE CREATININE RANDOM 63.1 mg/dL
[2017-06-25 10:35] LABS: ALBUMIN 3.6 gm/dl (3.1-4.5); CREATININE 2.27 mg/dL (0.70-1.30); MAGNESIUM 1.8 mg/dL (1.5-2.1); PHOSPHOROUS 2.7 mg/dL (2.5-4.9); POTASSIUM 4.5 mmol/L (3.5-5.1); TOTAL PROTEIN 6.7 gm/dL (6.4-8.2); URIC ACID 8.3 mg/dL (3.5-7.2)
[2017-06-25 11:50] LABS: FERRITIN 989.4 ng/mL (22.0-322.0); PTH INTACT 119.4 pg/mL (14.0-72.0)
[2017-06-26 08:10] LABS: TRANSFERRIN 004937 132 mg/dL (200-370)
[2017-06-26 15:07] LABS: CYCLOSPORINE, BLOOD 519 ng/mL (100-400)
[2017-06-27 21:05] LABS: BK QUANTITATION PCR Negative (Negative)
== END | disposition home or self-care (01) ==
LOC: LAB 09:36
PROVIDERS: Internal Medicine Nephrology
DX: D50.9 Iron deficiency anemia, unspecified (principal); Z94.0 Kidney transplant status; Z79.899 Other long term (current) drug therapy

== ENCOUNTER → 2017-07-08 | Outpatient (CLI) | payer OTHER ==
[2017-07-08 10:58] LABS: BASO % 0.2 % (0.0-1.0); EOS # 0.1 10*3/uL (0.0-0.4); EOS % 1.2 % (1.0-4.0); HEMATOCRIT 38.7 % (42.0-52.0); HEMOGLOBIN 12.4 g/dl (14.0-18.0); LYMPH # 0.6 10*3/uL (1.3-4.4); LYMPH % 10.6 % (27.0-41.0); MEAN CORPUSCULAR HGB 26.6 pg (27.0-31.0); MEAN PLATELET VOLUME 9.1 fl (9.6-12.3); MONO # 0.7 10*3/uL (0.1-1.0); MONO % 11.6 % (3.0-9.0); NEUT # 4.5 10*3/uL (2.3-7.9); NEUT % 76.1 % (47.0-73.0); PLATELET COUNT AUTOMATED 225 10*3/uL (130-400); RED BLOOD COUNT 4.66 10*6/uL (4.50-5.90); RED CELL DISTRI WIDTH 13.5 % (0-14.5)
[2017-07-08 11:03] LABS: URINE CREATININE RANDOM 75.5 mg/dL
[2017-07-08 11:22] LABS: ALBUMIN 3.6 gm/dl (3.1-4.5); CREATININE 2.24 mg/dL (0.70-1.30); MAGNESIUM 1.9 mg/dL (1.5-2.1); PHOSPHOROUS 3.1 mg/dL (2.5-4.9); URIC ACID 7.3 mg/dL (3.5-7.2)
[2017-07-08 12:16] LABS: FERRITIN 917.6 ng/mL (22.0-322.0); PTH INTACT 95.6 pg/mL (14.0-72.0)
[2017-07-09 09:06] LABS: TRANSFERRIN 004937 137 mg/dL (200-370)
[2017-07-09 14:10] LABS: CYCLOSPORINE, BLOOD 544 ng/mL (100-400)
== END | disposition home or self-care (01) ==
LOC: LAB 10:05
PROVIDERS: Internal Medicine Nephrology
DX: D50.9 Iron deficiency anemia, unspecified (principal); Z94.0 Kidney transplant status; Z79.899 Other long term (current) drug therapy

== ENCOUNTER 2017-07-11 17:22 | Inpatient (IN) | payer OTHER ==
[~2017-07-11] VITALS: Ht 180.3 cm; Wt 66.3 kg
[~2017-07-11 17:22] MED LIST changes: +SEPTDS PO
[2017-07-11 17:31] VITALS: BP 108/68
[2017-07-11 17:50] VITALS: BP 180/98
[2017-07-11 17:58] LABS: BASO % 0.2 % (0.0-1.0); EOS % 0.7 % (1.0-4.0); HEMATOCRIT 41.3 % (42.0-52.0); HEMOGLOBIN 13.1 g/dl (14.0-18.0); LYMPH # 0.6 10*3/uL (1.3-4.4); MEAN CELL VOLUME 82.6 fl (80.0-94.0); MEAN CORPUSCULAR HGB 26.2 pg (27.0-31.0); MEAN CORPUSCULAR HGB CONC 31.7 g/dl (33.0-37.0); MONO # 0.5 10*3/uL (0.1-1.0); MONO % 7.6 % (3.0-9.0); NEUT # 4.8 10*3/uL (2.3-7.9); NEUT % 81.3 % (47.0-73.0); PLATELET COUNT AUTOMATED 253 10*3/uL (130-400); RED CELL DISTRI WIDTH 13.9 % (0-14.5); WHITE BLOOD COUNT 5.9 10*3/uL (4.8-10.8)
[2017-07-11 18:12] LABS: ALBUMIN 3.7 gm/dl (3.1-4.5); CREATININE 2.1 mg/dL (0.70-1.30); POTASSIUM 5.3 mmol/L (3.5-5.1); TOTAL PROTEIN 6.7 gm/dL (6.4-8.2)
[2017-07-11 18:48] VITALS: BP 128/84
[2017-07-11 18:58] LABS: BILIRUBIN 1+ (NEGATIVE); BLOOD NEGATIVE (NEGATIVE); CLARITY SL CLOUDY (CLEAR); COLOR GREEN (YELLOW); GLUCOSE NEGATIVE (NEGATIVE); KETONE NEGATIVE (NEGATIVE); LEUKO ESTERASE 3+ (NEGATIVE); NITRITE NEGATIVE (NEGATIVE); SPECIFIC GRAVITY 1.015 (1.005-1.030); UROBILINOGEN 0.2 E.U./dl (0.2-1.0)
[2017-07-11 19:05] LABS: BACTERIA 1+
[2017-07-11 20:00] VITALS: BP 151/82
[2017-07-11 22:00] VITALS: BP 151/82
--- NOTE | 2017-07-11 22:28 | NUR ---
NOTIFIED ANSWERING SERVICE FOR CONSULT ON DR. HUANG. THEY WILL NOTIFY AND MAKE HIM AWARE.
[2017-07-11] MEDS ORDERED: UTIRA C PO (22:38)
[2017-07-11] MEDS ORDERED: CLONIDINE0.2 MG PO (22:39)
--- NOTE | 2017-07-11 22:41 | NUR ---
DR. CHOI NOTIFIED ABOUT UPDATED MED LIST.
[2017-07-12] VITALS: BP 155/66
--- NOTE | 2017-07-12 01:22 | NUR ---
PATIENT IS RESTING ON THEIR LEFT SIDE IN BED. PATIENT BECOMES LIGHT HEADED UPON STANDING, WILL CONTINUE TO MONTIOR. PATIENT HAS NO FURTHER REQUESTS AT THIS TIME. CALL LIGHT IS WITHIN REACH. SEE SHIFT ASSESSMENT.
--- NOTE | 2017-07-12 04:00 | NUR ---
SLEEPING IN BED. RESP-EASY AND REGULAR. CALL LIGHT IN REACH.
[2017-07-12 06:14] LABS: CREATININE 1.62 mg/dL (0.70-1.30); MAGNESIUM 1.7 mg/dL (1.5-2.1)
[2017-07-12 06:16] LABS: BASO % 0.2 % (0.0-1.0); EOS # 0.1 10*3/uL (0.0-0.4); EOS % 1.6 % (1.0-4.0); HEMATOCRIT 37.9 % (42.0-52.0); HEMOGLOBIN 12.1 g/dl (14.0-18.0); LYMPH # 0.9 10*3/uL (1.3-4.4); LYMPH % 16.2 % (27.0-41.0); MEAN CELL VOLUME 83.1 fl (80.0-94.0); MEAN CORPUSCULAR HGB 26.5 pg (27.0-31.0); MEAN CORPUSCULAR HGB CONC 31.9 g/dl (33.0-37.0); MEAN PLATELET VOLUME 9.5 fl (9.6-12.3); MONO # 0.8 10*3/uL (0.1-1.0); MONO % 13.5 % (3.0-9.0); NEUT # 3.9 10*3/uL (2.3-7.9); NEUT % 68.1 % (47.0-73.0); PLATELET COUNT AUTOMATED 233 10*3/uL (130-400); RED BLOOD COUNT 4.56 10*6/uL (4.50-5.90); WHITE BLOOD COUNT 5.7 10*3/uL (4.8-10.8)
[2017-07-12 06:20] LABS: VITAMIN D, 25-HYDROXY 35.2 ng/mL (30-100)
[2017-07-12 06:21] LABS: ACT PARTIAL THROMBO TIME 29.1 SECONDS (20.8-31.5); THYROID STIM HORMONE (HS) 1.39 uIU/ml (0.358-4.75)
[2017-07-12 06:36] LABS: POTASSIUM 3.9 mmol/L (3.5-5.1)
--- NOTE | 2017-07-12 06:55 | NUR ---
PATIENT IS SITTING UP IN BED. PATIENT IS AMBULATORY AND ABLE TO USE URINAL AND PERFORM ADL'S INDEPENDENTLY. PATIENT IS A&OX3 AND HAS BEEN PLEASANT AND COOPERATIVE THROUGHOUT THE NIGHT. CALL LIGHT IS WITHIN REACH, SEE SHIFT ASSESSMENT.
--- NOTE | 2017-07-12 08:00 | NUR ---
Edge Beader in to talk to patient. Patient states lives at HOME ALONE with . There are 4 steps in the home. Physician: [facility] Pharmacy: [facility] Home health services: NONE Patient's level of ADLs: INDEPENDENT Patient has working utilities: YES DME: NONE Follow-up physician's appointment after d/c: WILL BE MADE PRIOR TO DC Does patient want to access PORTAL?: Discharge plan HOME. [place] B[facility]
--- NOTE | 2017-07-12 08:35 | NUR ---
NOTIFIED OF + ORTHO BP RESULTS
--- NOTE | 2017-07-12 09:47 | NUR ---
PAGED FOR CONSULT AGAIN
[2017-07-12 12:00] VITALS: BP 166/82
[2017-07-12 16:00] VITALS: BP 144/78
--- NOTE | 2017-07-12 17:55 | NUR ---
NOTIFIED OF PATIENT COMPLAINING OF LEFT ARM PAIN. DENIES CHEST, BACK, OR NACK PAIN AND DESCRIBED PAIN "FEELING LIKE A STRAINED MUSCLE". BP 160/80; HR NSR 70'S.
--- NOTE | 2017-07-12 19:45 | NUR ---
PT. IS SITTING UP IN BED AT THIS TIME, WITH CALL LIGHT AND URINAL IN REACH, HOB ELEVATED. PT. IS INDEPENDENTLY ABLE TO PERFORM ADL'S AND HAS NO NEEDS AT THIS TIME. SEE SHIFT ASSESSMENT.
[2017-07-12 20:00] VITALS: BP 142/72
[2017-07-13] VITALS: BP 196/88
--- NOTE | 2017-07-13 00:25 | NUR ---
PRN CATAPRESS GIVEN AT THIS TIME D/T PT. BP BEING 198/88. WILL MONITOR EFFECT.
--- NOTE | 2017-07-13 01:30 | NUR ---
PRN CATAPRESS EFFECTIVE, BP IS NOW IN THE 160'S. WILL CONTINUE TO MONITOR.
--- NOTE | 2017-07-13 01:33 | NUR ---
PRN TYLENOL GIVEN TO PT. FOR C/O HEADACHE, WILL MONITOR EFFECT. CALL LIGHT IS WITHIN REACH.
--- NOTE | 2017-07-13 02:00 | NUR ---
PRN TYLENOL SEEMS EFFECTIVE, PT. IS SLEEPING COMFORTABLY WITH NO SIGNS OF DISTRESS. CALL LIGHT IS IN REACH AND HOB IS ELEVATED. WILL CONTIUE TO MONITOR.
[2017-07-13 06:16] LABS: BASO % 0.2 % (0.0-1.0); EOS # 0.1 10*3/uL (0.0-0.4); EOS % 0.8 % (1.0-4.0); HEMATOCRIT 35.9 % (42.0-52.0); HEMOGLOBIN 11.5 g/dl (14.0-18.0); LYMPH # 0.8 10*3/uL (1.3-4.4); LYMPH % 12.9 % (27.0-41.0); MEAN CELL VOLUME 82.9 fl (80.0-94.0); MEAN CORPUSCULAR HGB 26.6 pg (27.0-31.0); MEAN PLATELET VOLUME 9.4 fl (9.6-12.3); MONO # 0.8 10*3/uL (0.1-1.0); MONO % 12.4 % (3.0-9.0); NEUT # 4.6 10*3/uL (2.3-7.9); NEUT % 73.5 % (47.0-73.0); PLATELET COUNT AUTOMATED 216 10*3/uL (130-400); RED BLOOD COUNT 4.33 10*6/uL (4.50-5.90); RED CELL DISTRI WIDTH 13.8 % (0-14.5); WHITE BLOOD COUNT 6.2 10*3/uL (4.8-10.8)
[2017-07-13 06:50] LABS: ALBUMIN 3.2 gm/dl (3.1-4.5); MAGNESIUM 1.8 mg/dL (1.5-2.1); POTASSIUM 4.2 mmol/L (3.5-5.1)
[2017-07-13 06:52] LABS: CREATININE 1.62 mg/dL (0.70-1.30); PHOSPHOROUS 3.5 mg/dL (2.5-4.9); TOTAL PROTEIN 5.9 gm/dL (6.4-8.2)
[2017-07-13 08:00] VITALS: BP 156/80
[2017-07-13 12:00] VITALS: BP 146/82
[2017-07-13 16:00] VITALS: BP 152/74
--- NOTE | 2017-07-13 16:08 | NUR ---
Dr. Johnston called in and asked to be updated on pt. Notified of last bp results from 8 am and 12 pm, 4 pm was not charted yet and I notified her of this. She asked what pt had been receiving for bp meds. Reviewed meds that pt had here and that other home bp meds were not currenlty being given due to orthostatic hypotension on admission. She states that per renal standpoint pt could be dc tomorrow if primary wishes. States she will see pt as an outpt as he already has an appt scheduled. She would like called tomorrow if pt is going to be discharged at [phone]. Updated pt on this information.
--- NOTE | 2017-07-13 19:51 | NUR ---
PT. IS RESTING COMFORTABLY IN BED AT THIS TIME WATCHING TELEVISION. RESPIRATIONS ARE EASY AND REGULA WITH NO DISTRESS NOTED, HOB ELEVATED AND CALL LIGHT IN REACH. SEE SHIFT ASSESSMENT.
[2017-07-13 20:00] VITALS: BP 150/82
--- NOTE | 2017-07-13 22:41 | NUR ---
24 HR chart check completed.
[2017-07-14] VITALS: BP 170/79
--- NOTE | 2017-07-14 00:34 | NUR ---
PATIENT MEDICATED WITH PRN CATAPRES FOR SYSTOLIC BP OF 170
--- NOTE | 2017-07-14 04:04 | NUR ---
PATIENT RESITNG IN BED WITH NO S/S OF DISTRESS. BED IN LOWEST POSITION, CALL LIGHT IN REACH
[2017-07-14 06:03] LABS: BASO % 0.1 % (0.0-1.0); EOS % 0.6 % (1.0-4.0); HEMATOCRIT 38.2 % (42.0-52.0); HEMOGLOBIN 12.1 g/dl (14.0-18.0); LYMPH # 0.8 10*3/uL (1.3-4.4); LYMPH % 11.1 % (27.0-41.0); MEAN CELL VOLUME 82.5 fl (80.0-94.0); MEAN CORPUSCULAR HGB 26.1 pg (27.0-31.0); MEAN CORPUSCULAR HGB CONC 31.7 g/dl (33.0-37.0); MEAN PLATELET VOLUME 9.8 fl (9.6-12.3); MONO # 0.8 10*3/uL (0.1-1.0); MONO % 11.5 % (3.0-9.0); NEUT # 5.2 10*3/uL (2.3-7.9); NEUT % 76.4 % (47.0-73.0); PLATELET COUNT AUTOMATED 221 10*3/uL (130-400); RED BLOOD COUNT 4.63 10*6/uL (4.50-5.90); RED CELL DISTRI WIDTH 13.9 % (0-14.5); WHITE BLOOD COUNT 6.8 10*3/uL (4.8-10.8)
[2017-07-14 06:39] LABS: BUN 39 mg/dl (7-24); CHLORIDE 113 mmol/L (98-107); POTASSIUM 4.3 mmol/L (3.5-5.1); SODIUM 144 mmol/L (136-145)
[2017-07-14 06:42] LABS: CREATININE 1.49 mg/dL (0.70-1.30)
[2017-07-14 08:00] VITALS: BP 124/80
--- NOTE | 2017-07-14 08:00 | NUR ---
AMBULATORY IN ROOM, EASY RESPIRATIONS WITH SKIN W/D. PT DENIES C/O DIZZINES OR VISUAL CHANGES, DENIES KEENAN. SEE CHARTED ORTHOSTATIC BP. SEE SHIFT ASSESSMENT.
[2017-07-14] MEDS ORDERED: FINASTERIDE5 M1 PO (09:46)
--- NOTE | 2017-07-14 10:49 | NUR ---
DECLINES FLU VACCINE & PNEUMOVAC PRIOR TO DISCHARGE.
--- NOTE | 2017-07-14 11:17 | NUR ---
CALLED [phone], NEPHROLOGY TO NOTIFY OF DISCHARGE. NO ANSWER, LEFT VOICEMAIL MESSAGE. PT IS ANXIOUS TO LEAVE.
--- NOTE | 2017-07-14 11:30 | NUR ---
Discharge instructions reviewed with patient/family. Patient receptive and verbalizes understanding. Written instructions given to patient/family. KIM CORTEZ
== END 2017-07-14 11:30 | disposition home or self-care (01) | DRG 304 ==
LOC: ED 17:22 → 4E 19:31 → EDHOLD 19:31 → 4E 20:22
PROVIDERS: Family Medicine; Internal Medicine; Internal Medicine Nephrology; Nurse Practitioner Family; ADMIT Internal Medicine
DX: I16.1 Hypertensive emergency (principal); N17.0 Acute kidney failure with tubular necrosis; Z94.83 Pancreas transplant status; Z94.0 Kidney transplant status; N39.0 Urinary tract infection, site not specified; I95.1 Orthostatic hypotension; E11.22 Type 2 diabetes mellitus with diabetic chronic kidney disease; E87.8 Other disorders of electrolyte and fluid balance, not elsewhere classified; N18.3 Chronic kidney disease, stage 3 (moderate); E87.5 Hyperkalemia; I12.9 Hypertensive chronic kidney disease with stage 1 through stage 4 chronic kidney disease, or unspecified chronic kidney disease; E11.43 Type 2 diabetes mellitus with diabetic autonomic (poly)neuropathy; E78.1 Pure hyperglyceridemia; E83.51 Hypocalcemia; I25.10 Atherosclerotic heart disease of native coronary artery without angina pectoris; N40.0 Benign prostatic hyperplasia without lower urinary tract symptoms; Z79.899 Other long term (current) drug therapy; Z95.5 Presence of coronary angioplasty implant and graft; Z83.3 Family history of diabetes mellitus; Z82.49 Family history of ischemic heart disease and other diseases of the circulatory system; I25.2 Old myocardial infarction; Z79.82 Long term (current) use of aspirin

== ENCOUNTER → 2017-07-17 | Outpatient (CLI) | payer OTHER ==
[~2017-07-17] MED LIST changes: +CLONIDINE0.2 MG PO; +FINASTERIDE5 M1 PO; +UTIRA C PO
[2017-07-17 12:49] LABS: BASO % 0.1 % (0.0-1.0); EOS # 0.1 10*3/uL (0.0-0.4); HEMATOCRIT 39.1 % (42.0-52.0); HEMOGLOBIN 12.6 g/dl (14.0-18.0); LYMPH # 0.6 10*3/uL (1.3-4.4); LYMPH % 8.4 % (27.0-41.0); MEAN CELL VOLUME 82.3 fl (80.0-94.0); MEAN CORPUSCULAR HGB 26.5 pg (27.0-31.0); MEAN CORPUSCULAR HGB CONC 32.2 g/dl (33.0-37.0); MEAN PLATELET VOLUME 9.5 fl (9.6-12.3); MONO # 0.5 10*3/uL (0.1-1.0); NEUT # 5.9 10*3/uL (2.3-7.9); NEUT % 83.1 % (47.0-73.0); PLATELET COUNT AUTOMATED 233 10*3/uL (130-400); RED BLOOD COUNT 4.75 10*6/uL (4.50-5.90); RED CELL DISTRI WIDTH 14.1 % (0-14.5); WHITE BLOOD COUNT 7.1 10*3/uL (4.8-10.8)
[2017-07-17 13:12] LABS: CREATININE 1.72 mg/dL (0.70-1.30); POTASSIUM 5.6 mmol/L (3.5-5.1)
== END | disposition home or self-care (01) ==
LOC: LAB 12:24
PROVIDERS: Internal Medicine
DX: N17.9 Acute kidney failure, unspecified (principal)

== ENCOUNTER → 2017-07-30 | Outpatient (CLI) | payer OTHER ==
[2017-07-30 10:34] LABS: BASO % 0.1 % (0.0-1.0); EOS # 0.1 10*3/uL (0.0-0.4); EOS % 1.1 % (1.0-4.0); HEMATOCRIT 40.4 % (42.0-52.0); HEMOGLOBIN 12.8 g/dl (14.0-18.0); LYMPH # 0.6 10*3/uL (1.3-4.4); LYMPH % 8.7 % (27.0-41.0); MEAN CELL VOLUME 83.5 fl (80.0-94.0); MEAN CORPUSCULAR HGB 26.4 pg (27.0-31.0); MEAN CORPUSCULAR HGB CONC 31.7 g/dl (33.0-37.0); MEAN PLATELET VOLUME 9.4 fl (9.6-12.3); MONO # 0.6 10*3/uL (0.1-1.0); MONO % 8.8 % (3.0-9.0); NEUT # 5.9 10*3/uL (2.3-7.9); NEUT % 80.9 % (47.0-73.0); PLATELET COUNT AUTOMATED 248 10*3/uL (130-400); RED BLOOD COUNT 4.84 10*6/uL (4.50-5.90); RED CELL DISTRI WIDTH 15.3 % (0-14.5); WHITE BLOOD COUNT 7.3 10*3/uL (4.8-10.8)
[2017-07-30 10:40] LABS: URINE CREATININE RANDOM 46.8 mg/dL
[2017-07-30 10:58] LABS: ALBUMIN 3.7 gm/dl (3.1-4.5); CREATININE 1.86 mg/dL (0.70-1.30); PHOSPHOROUS 2.9 mg/dL (2.5-4.9); POTASSIUM 5.3 mmol/L (3.5-5.1); TOTAL PROTEIN 6.5 gm/dL (6.4-8.2); URIC ACID 6.8 mg/dL (3.5-7.2)
[2017-07-30 11:31] LABS: FERRITIN 792.7 ng/mL (22.0-322.0)
[2017-07-30 11:32] LABS: PTH INTACT 84.8 pg/mL (14.0-72.0)
[2017-07-31 08:12] LABS: TRANSFERRIN 004937 146 mg/dL (200-370)
[2017-07-31 14:09] LABS: CYCLOSPORINE, BLOOD 512 ng/mL (100-400)
[2017-08-01 15:07] LABS: BK QUANTITATION PCR Negative (Negative)
== END | disposition home or self-care (01) ==
LOC: LAB 09:55
PROVIDERS: Internal Medicine Nephrology
DX: D50.9 Iron deficiency anemia, unspecified (principal); Z94.0 Kidney transplant status; Z79.899 Other long term (current) drug therapy

== ENCOUNTER 2017-08-11 18:28 | Inpatient (IN) | payer OTHER ==
[~2017-08-11] VITALS: Ht 180.3 cm; Wt 67.6 kg
--- NOTE | ~2017-08-11 | PR ---
[place], [place] PROGRESS NOTE NAME: PAUL JANE [facility] #: [id number] UNIT #: [id number] ROOM: 507 DOCTOR: GREG ERIC MD,PRASHANTH BIRTHDATE: [birth year] DOS: 08/14/2017 PULMONARY FOLLOWUP SUBJECTIVE: He was independently seen and examined today with [id number] encounter. The history was confirmed. Physical examination performed. All the available labs were reviewed. The note done by the back office medical assistant was approved. He has been noted with significant improvement ____ not sick looking ill at this time. The patient does not have any high-grade fever. Cough has been subsiding. There were no symptoms of chest pain. There was no sputum expectoration noted since last evening. OBJECTIVE: VITAL SIGNS: Reviewed, the patient appears to remain afebrile with a normal temperature, heart rate, mild elevation of the systolic pressure 157. Pulse oxygen saturation of the patient was noted as 96%. LUNGS: Noted clear to auscultation bilaterally. ABDOMEN: Soft, nontender. LABORATORY DATA: BMP for the patient, BUN 43, creatinine 1.48 noted. CBC of 08/14/2017, WBC count 13.8 with mild anemia. The chest x-ray for this patient that was done this morning does not show any acute abnormalities. IMPRESSION: Resolution of acute tracheobronchitis with increased marking noted, yesterday it was clear not suggestive of acute pneumonia. Acute simple bronchitis would be considered. There were no signs of any opportunistic infection including any fungal infection at this time with clinical and current radiology assessment. At this time, from the pulmonary standpoint, the patient could be discharged home on any oral antibiotics either Zithromax or others with bronchodilators and other therapy, plan of management. He was advised to follow up with the primary care physician as well his transplant physicians in [facility]. PRASHANTH GARZA MD CM:PNTRANS [id number] PRASHANTH ERIC MD 08/14/17 1053 interface
--- NOTE | ~2017-08-11 | CON ---
[place], [place] REPORT OF CONSULTATION 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 Post-transplantation, the patient has not been started medication, stated that it would not be necessary. I am not sure about the exact details for the patient available at the present time. However, medical records could be obtained from the patient [facility] for this patient for further assessment at this time. At least clinically, the patient does not show any signs of aspergillosis, past history based on described with the patient may be noted possibility of allergic bronchopulmonary mycosis and less likely to be an invasive aspergillosis. Colonization remains a possibility. The patient was started on prednisone at usual dose of 5 mg daily and would not require any use of high dose corticosteroids at the present time. PRASHANTH GARZA MD CM:CONSTR:REPORT OF CONSULTATION 1137 08/14/17 0038 interface
--- NOTE | ~2017-08-11 | CON ---
[place], [place] REPORT OF CONSULTATION NAME: PAUL JANE [facility] #: [id number] UNIT #: [id number] ROOM: 507 DOCTOR: GREG ERIC MDPRASHANTH BIRTHDATE: [birth year] DOS: 08/13/2017 PULMONARY CONSULTATION EVALUATION AND MANAGEMENT CONSULTATION REQUESTED BY: Hospitalist services. REASON FOR CONSULTATION: For the assessment of acute pneumonia. HISTORY OF PRESENT ILLNESS: This is a 41-year-old white male who has been noted with history of kidney and pancreatic transplant. The patient has been noted with initial transplant of the kidney for this patient and the pancreas for the patient in 2008, which later on failed. The patient was started on hemodialysis for the end-stage renal failure after that and had another kidney and pancreas transplantation done at [facility] in 2013, which has been noted currently functional. The patient did not require any hemodialysis. He presented to the hospital. The patient reported symptoms of flu-like symptom occurred at home with general body aches and pains with nonproductive cough, sore throat, fever without any chills. The patient denies any symptoms of chest pain with that. He presented to the Emergency Room for further assessment of the current acute symptoms. REVIEW OF SYSTEMS: CONSTITUTIONAL SYMPTOMS: Fatigue and tiredness, fever, which are noted previously, seemed to be partially improved from yesterday. EYES: Denies any burning, redness, dryness or discharge. NECK, EAR, NOSE, THROAT SYMPTOMS: Denies sore throat, hoarseness, otalgia, postnasal drainage or epistaxis. CARDIOVASCULAR: Denies angina pain, edema or pain of the lower extremities. GASTROINTESTINAL: Denies symptoms of dysphagia, nausea, vomiting, diarrhea, abdominal pain, hematemesis, melena, or hematochezia. SKIN: Denies lesions or rashes. CENTRAL NERVOUS SYSTEM: Denies headache, diplopia or syncopal episodes. Remaining systems were reviewed with the patient, they were noted all negative. PAST MEDICAL HISTORY: 1. The patient with noted history of transplant status of the kidney and pancreas. 2. Chronic immunosuppression secondary to current transplant status. 3. History of end-stage renal failure in the past, requiring hemodialysis in the past, but not requiring hemodialysis at this time. 4. Type 2 diabetes mellitus. 5. Coronary artery disease history. 6. Essential hypertension. PAST SURGICAL HISTORY: 1. The patient noted with history of cardiac catheterization, coronary artery stent insertion. 2. Kidney transplant for the patient in 2008 and then in 2014 as was the pancreas transplant in 2008 and 2014. [place], [place] REPORT OF CONSULTATION NAME: PAUL JANE UNIT #: [id number] ROOM: 507 DOCTOR: PRASHANTH CARNES MD BIRTHDATE: [birth year] SOCIAL HISTORY: The patient denies any history of alcohol use or drug use or tobacco use at this time. He stated he has smoked cigarettes for few years that has been discontinued many years ago, could not recall the exact duration of the tobacco use and its cessation. He denies any chronic alcohol use or any history of occupation related or other exposure history for this patient or any chemicals or dust. FAMILY HISTORY: The patient's father is at the age of 7070 years old, unknown medical illnesses. Mother for the patient living, 69 years old with history of diabetes and essential hypertension. HOME MEDICATIONS: 1. Reported use of aspirin 81 mg p.o. daily, Coreg 12.5 mg p.o. b.i.d., clonidine 0.2 mg p.o. b.i.d. p.r.n. for elevated high blood pressure, Neoral, which is modified cyclosporine 75 mg b.i.d., Zortress 1.5 mg p.o. b.i.d., Synthroid 50 mcg daily, Lutein 2 mg p.o. daily, Nasonex one spray in each nostril daily. 2. Nifedipine 30 mg daily. 3. Prilosec 20 mg daily. 4. Prednisone 5 mg daily. 5. Bactrim-DS 1 Saturday, Saturday and Fridays. DRUG ALLERGY HISTORY: The patient was reported as no known drug allergies. PHYSICAL EXAMINATION: GENERAL: This is a 41-year-old male who has been noted currently awake and alert at this time without any distress. Height of 5 feet 11 inches, weight 149 pounds, BMI 20.8. VITAL SIGNS: Temperature noted as low grade 99.2 degree Fahrenheit, otherwise, noted afebrile. Respiratory rate recorded as 18-20, heart rate of 77-102, blood pressure 137/66-180/83. Intake 4.95 liters, the output 1600 mL for this patient. Positive fluid balance approximately 3200 mL. Pulse oxygen saturation on room air was noted 97%-98% saturation. HEENT: Head was atraumatic. Eyes: No icterus. Oral mucosa was moist. NECK: Supple. CARDIOVASCULAR: S1, S2 audible. LUNGS: The patient was noted without any wheezing or crackles at the present time. ABDOMEN: Soft, nontender. Bowel sounds are present. EXTREMITIES: The patient noted without any edema, clubbing, cyanosis. CENTRAL NERVOUS SYSTEM: No gross focal deficit. Cranial nerves 2-12 intact. SKIN: No lesions or rashes. MUSCULOSKELETAL: No deformities. LABORATORY DATA: CMP on the patient that was done this morning showed BUN 47, creatinine 1.73, glucose 139. Potassium was 5.0, CO2 of 20. Total protein 5.9. Blood culture from the of this month showed no bacterial growth. PT/PTT on 08/12/2017 was noted as normal. BMP that was done on admission noted BUN 29, creatinine 1.56. Remaining electrolytes grossly normal. CBC on admission 08/11/2017, WBC count 11,000, hemoglobin 12.8, hematocrit 40.3 with platelet [place], [place] REPORT OF CONSULTATION NAME: PAUL JANE UNIT #: [id number] ROOM: 507 DOCTOR: GREG ERIC MD,[facility] BIRTHDATE: [birth year] count as normal. Influenza rapid nasal washing antigen for the patient was noted as negative for A and B species. Strep throat specimen was noted negative. Rapid beta hemolytic strep with pending culture results. Lactic acid 2.2 on admission, followup 0.6 on the . The chest x-ray that was done on 08/11/2017 reviewed shows increased interstitial marking was noted. On the chest x-ray, there was no discrete area of consolidation visible. There was no evidence of pleural effusions. He had 2 CT scans of the chest done, the first one in September was noted without any acute abnormalities. CT scan of 03/01/2017 was reviewed shows area of consolidation and ground glass opacity noted in the right upper lobe arising from the right perihilar area. IMPRESSION: 1. The patient will be noted with history of chronic venous pressure and treated with the medication, presented to the hospital, appeared like a viral syndrome. Increased interstitial marking noted on the chest x-ray. Etiology is unclear. However, interstitial pneumonitis cannot be completely excluded. 2. History of kidney and the pancreas transplant as well. Short-term tobacco use was noted for this patient as well. Plan and management at this time, the chest x-ray to be repeated again in the morning. If the interstitial marking remains persistent, certainly CT scan of the chest needs to be done without contrast because of the underlying chronic kidney disease. Assess the patient's nasopharyngeal washing for viral assessment as well with a viral panel PCR. The patient is getting corticosteroids at this time, I am not sure the patient had a bronchospasm previously or not, but certainly at this time the patient does not have any bronchospasm. 4. History of essential hypertension and hypothyroidism as well as coronary artery disease were known as comorbid conditions. PLAN OF MANAGEMENT: Continuation of the bronchodilators. Solu-Medrol for the patient at this time will be discontinued. Monitoring of the respiratory symptom. Continue simple bronchodilators administration. The patient will be noted for current wheezing. Certainly, the steroids could be resumed after that. Obtain another chest x-ray, PA and lateral view, in the morning. Ordered the PCR for the patient with the nasopharyngeal specimen for assessment if not previously ordered. Other supportive therapy, plan of management and care. Additional treatment changes will be made based on the progression of the illness. Sputum for Gram stain and culture has been ordered as well to be assessed once available. Other supportive plan of management. Additional treatment changes will be made based on the progression of the illness. Thanks for allowing me to participate in the care of this patient. [place], [place] REPORT OF CONSULTATION NAME: PAUL JANE UNIT #: [id number] ROOM: 507 DOCTOR: PRASHANTH CARNES MD BIRTHDATE: [birth year] PRASHANTH GARZA MD CM:CONSTR:REPORT OF CONSULTATION 1133 08/14/17 0908 interface
[2017-08-11 18:41] VITALS: BP 137/66
--- NOTE | 2017-08-11 19:00 | NUR ---
NURSE TO NURSE REPORT GIVEN TO THIS RN.PT RESTING IN BED.STABLE.AWAITING MD EXAM.
[2017-08-11 20:06] LABS: BASO % 0.1 % (0.0-1.0); EOS # 0.1 10*3/uL (0.0-0.4); EOS % 0.5 % (1.0-4.0); HEMATOCRIT 40.3 % (42.0-52.0); HEMOGLOBIN 12.8 g/dl (14.0-18.0); LYMPH # 0.5 10*3/uL (1.3-4.4); LYMPH % 4.8 % (27.0-41.0); MEAN CELL VOLUME 83.6 fl (80.0-94.0); MEAN CORPUSCULAR HGB 26.6 pg (27.0-31.0); MEAN CORPUSCULAR HGB CONC 31.8 g/dl (33.0-37.0); MONO % 8.7 % (3.0-9.0); NEUT # 9.5 10*3/uL (2.3-7.9); NEUT % 85.7 % (47.0-73.0); PLATELET COUNT AUTOMATED 248 10*3/uL (130-400); RED BLOOD COUNT 4.82 10*6/uL (4.50-5.90); RED CELL DISTRI WIDTH 15.4 % (0-14.5)
[2017-08-11 20:21] LABS: ALBUMIN 3.7 gm/dl (3.1-4.5); ALKALINE PHOSPHATASE 86 U/L (45-117); BUN 29 mg/dl (7-24); CHLORIDE 113 mmol/L (98-107); CREATININE 1.56 mg/dL (0.70-1.30); POTASSIUM 4.8 mmol/L (3.5-5.1); SGOT/AST 39 IU/L (3-35); SGPT/ALT 57 U/L (12-78); SODIUM 144 mmol/L (136-145); TOTAL PROTEIN 6.8 gm/dL (6.4-8.2)
--- NOTE | 2017-08-11 20:23 | NUR ---
LAB CALLED WITH CRITICAL VALUE OF LACTIC 2.2.DR NOTIFIED.
[2017-08-11 21:42] VITALS: BP 151/72
--- NOTE | 2017-08-11 22:20 | NUR ---
A 41, admitted to , under the services of BEE De La Torre DO with a diagnosis of SEPSIS. Chief complaint is FEVER AT HOME. Patient arrived via stretcher from ER. Monitor applied. Initial assessment completed. Vital signs taken and recorded. BEE DE LA TORRE DO notified of admission to the unit. Orders received. See assessment for past medical history, medications and allergies. Patient and/or family oriented to unit. [facility] visitation policy reviewed. Clothing/patient valuable form completed. JOSELYN MADRID
--- NOTE | 2017-08-11 22:51 | NUR ---
MEDICATED WITH ZOFRAN FOR C/O NAUSEA.
--- NOTE | 2017-08-11 23:30 | NUR ---
STATES ZOFRAN SOMEWHAT EFFECTIVE.
[2017-08-12] VITALS: BP 153/65
--- NOTE | 2017-08-12 00:35 | NUR ---
SPOKE TO DR. LAU PERTAINING TO PATIENT'S MED REC BEING UP TO DATE. DR. LAU INFORMED ME THAT I DID NOT NEED TO CALL HIM IN THE MIDDLE OF THE NIGHT TO INFORM HIM THAT THE MED REC WAS UP TO DATE. PT. TAKES NEORAL & ZORTRESS; 2 ANTI REJECTION MEDICATIONS THAT HE TAKES AT 8AM & 8PM.
--- NOTE | 2017-08-12 06:00 | NUR ---
RESTING IN BED WITH EYES CLOSED. IV FLUIDS CONTINUE TO INFUSE WITHOUT DIFFICULTY; SITE ASYMPTOMATIC. CALL LIGHT WITHIN REACH.
[2017-08-12 07:00] LABS: HEMATOCRIT 37.1 % (42.0-52.0); HEMOGLOBIN 11.9 g/dl (14.0-18.0); MEAN CELL VOLUME 85.3 fl (80.0-94.0); MEAN CORPUSCULAR HGB 27.4 pg (27.0-31.0); MEAN CORPUSCULAR HGB CONC 32.1 g/dl (33.0-37.0); MEAN PLATELET VOLUME 9.1 fl (9.6-12.3); PLATELET COUNT AUTOMATED 222 10*3/uL (130-400); RED BLOOD COUNT 4.35 10*6/uL (4.50-5.90); RED CELL DISTRI WIDTH 15.7 % (0-14.5); WHITE BLOOD COUNT 13.7 10*3/uL (4.8-10.8)
--- NOTE | 2017-08-12 07:01 | NUR ---
MEDICATED WITH TYLENOL FOR C/O HEADACHE.
[2017-08-12 07:25] LABS: TOTAL CELLS COUNTED 100 #CELLS
[2017-08-12 07:26] LABS: PLATELET SUFFICIENCY NORMAL (NORMAL)
[2017-08-12 07:31] LABS: CREATININE 1.77 mg/dL (0.70-1.30); POTASSIUM 5.4 mmol/L (3.5-5.1)
[2017-08-12 07:39] LABS: THYROID STIM HORMONE (HS) 0.306 uIU/ml (0.358-4.75)
[2017-08-12 07:50] LABS: ACT PARTIAL THROMBO TIME 32.6 SECONDS (20.8-31.5)
[2017-08-12 08:00] VITALS: BP 157/75
--- NOTE | 2017-08-12 09:00 | NUR ---
Collections Agent in to talk to patient. Patient states lives at home with alone. There are few steps in the home. Physician: janee christensen [facility] Home health services: none Patient's level of ADLs: INDEPENDENT Patient has working utilities: all working DME: none Follow-up physician's appointment after d/c: will be made by hospitalist nurse director upon discharge Does patient want to access PORTAL?: no Discharge plan discussed with patient, patient states he will be going home when able and denies any home needs. FATOUMATA MCDANIEL
[2017-08-12 09:01] LABS: VITAMIN D, 25-HYDROXY 31.3 ng/mL (30-100)
[2017-08-12 12:00] VITALS: BP 142/63
--- NOTE | 2017-08-12 14:07 | NUR ---
DR. GARZA NOTIFIED OF CONSULT FOR PNEUMONIA.
[2017-08-12 16:00] VITALS: BP 182/80
[2017-08-12] MEDS ORDERED: NIFEDIPINE30 MG PO (19:31)
[2017-08-12 20:00] VITALS: BP 192/80
--- NOTE | 2017-08-12 20:14 | NUR ---
SPOKE TO ABOUT PATIENT'S CONCERNS FOR TAKING HOME SUPPLY OF NEORAL. PATIENT STATES HIS PHYSICIAN SAID THAT HE MUST TAKE BRAND NAME. PER , OKAY TO PROFILE PATIENT'S HOME MEDICATIONS FOR USE WHILE IN HOSPITAL. PHARMACIST NOTIFIED. ALSO DISCUSSED PATIENT'S CURRENT BLOOD PRESSURE OF 192/60 MANUALLY. DISCUSSED ORDERED MEDICATIONS. PO CLONIDINE 0.2 MG ORDERED BID PRN, BUT NO PARAMETERS ORDERED. DISCUSSED PATIENT'S CLAIMS OF ORTHOSTATIC HYPOTENSION, THOUGH NO ORTHOSTATIC BLOOD PRESSURES WERE TAKEN AT THIS TIME. PER , GIVE ORDERED PO CLONIDINE.
--- NOTE | 2017-08-12 20:31 | NUR ---
PO CLONIDINE ADMINISTERED PER PRN ORDER FOR MANUAL BP 192/80. WILL MONITOR EFFECTIVENESS OF MEDICATION. CALL LIGHT LEFT IN REACH.
[2017-08-13] VITALS (7 sets, daily range): BP systolic 167–189; BP diastolic 67–83
--- NOTE | 2017-08-13 04:13 | NUR ---
PATIENT ASLEEP IN BED AT THIS TIME. RESPIRATIONS EASY. NO S/S OF DISTRESS NOTED. ON ROOM AIR. WILL MONITOR. CALL LIGHT IN REACH.
--- NOTE | 2017-08-13 04:57 | NUR ---
NOTIFIED OF BP REMAINING ELEVATED AT 172/81. INSTRUCTED TO GIVE 0800 DOSE OF COREG EARLY.
[2017-08-13 07:14] LABS: HEMOGLOBIN 10.7 g/dl (14.0-18.0); MEAN CORPUSCULAR HGB 26.8 pg (27.0-31.0); MEAN CORPUSCULAR HGB CONC 31.5 g/dl (33.0-37.0); MEAN PLATELET VOLUME 9.5 fl (9.6-12.3); PLATELET COUNT AUTOMATED 249 10*3/uL (130-400); RED CELL DISTRI WIDTH 15.4 % (0-14.5); WHITE BLOOD COUNT 18.4 10*3/uL (4.8-10.8)
[2017-08-13 07:36] LABS: SCHISTOCYTES FEW; TOTAL CELLS COUNTED 100 #CELLS
[2017-08-13 07:37] LABS: BURR CELLS FEW; PLATELET SUFFICIENCY NORMAL (NORMAL)
[2017-08-13 07:48] LABS: ALBUMIN 2.8 gm/dl (3.1-4.5); CREATININE 1.73 mg/dL (0.70-1.30); TOTAL PROTEIN 5.6 gm/dL (6.4-8.2)
--- NOTE | 2017-08-13 08:00 | NUR ---
PT RESTING IN BED. RESP-EASY AND REGULAR. IVF INFUSING WITH NO PROBLEM. CALL LIGHT IN REACH. SEE SHIFT ASSESSMENT.
--- NOTE | 2017-08-13 08:53 | NUR ---
CALLED DR. MCKEE ANSWERING SERVICE MADE AWARE OF CONSULT THEY WILL NOTIFY HIM.
--- NOTE | 2017-08-13 09:27 | NUR ---
CALLED DR. RAFI DUNN CANCELLED CONSULT. PT ALREADY SEEN DR. REINA DUNN.
--- NOTE | 2017-08-13 09:28 | NUR ---
CALLED DR. ELY GROUP AWARE OF CONSULT.
--- NOTE | 2017-08-13 10:00 | NUR ---
RESTING IN BED. RESP-EASY AND REGULAR. IVF INFUSING WITH NO PROBLEM. CALL LIGHT IN REACH.
--- NOTE | 2017-08-13 12:30 | NUR ---
RESTING IN BED. RESP-EASY AND REGULAR. IVF INFUSING WITH NO PROBLEM. CALL LIGHT IN REACH.
--- NOTE | 2017-08-13 14:00 | NUR ---
RESTING IN BED. CALL LIGHT IN REACH.
--- NOTE | 2017-08-13 16:00 | NUR ---
PT RESTING IN BED. BP 150/72. IVF INFUSING WITH NO PROBLEM. CALL LIGHT IN REACH. SEE SHIFT ASSESSMENT.
--- NOTE | 2017-08-13 22:44 | NUR ---
SPUTUM OBTAINED AND SENT TO LAB FOR SPUTUM C&S.
[2017-08-14] VITALS: BP 160/68
[2017-08-14 04:00] VITALS: BP 157/72
[2017-08-14 07:30] LABS: BASO % 0.1 % (0.0-1.0); HEMATOCRIT 33.2 % (42.0-52.0); HEMOGLOBIN 10.7 g/dl (14.0-18.0); LYMPH # 0.6 10*3/uL (1.3-4.4); LYMPH % 4.2 % (27.0-41.0); MEAN CELL VOLUME 85.1 fl (80.0-94.0); MEAN CORPUSCULAR HGB 27.4 pg (27.0-31.0); MEAN CORPUSCULAR HGB CONC 32.2 g/dl (33.0-37.0); MEAN PLATELET VOLUME 9.5 fl (9.6-12.3); MONO # 1.2 10*3/uL (0.1-1.0); MONO % 8.4 % (3.0-9.0); NEUT # 11.9 10*3/uL (2.3-7.9); NEUT % 86.6 % (47.0-73.0); PLATELET COUNT AUTOMATED 247 10*3/uL (130-400); RED CELL DISTRI WIDTH 15.6 % (0-14.5); WHITE BLOOD COUNT 13.8 10*3/uL (4.8-10.8)
[2017-08-14 07:50] LABS: ALBUMIN 2.8 gm/dl (3.1-4.5); ALKALINE PHOSPHATASE 68 U/L (45-117); BUN 43 mg/dl (7-24); CHLORIDE 117 mmol/L (98-107); CREATININE 1.48 mg/dL (0.70-1.30); POTASSIUM 4.2 mmol/L (3.5-5.1); SGOT/AST 26 IU/L (3-35); SGPT/ALT 54 U/L (12-78); SODIUM 144 mmol/L (136-145); TOTAL PROTEIN 5.5 gm/dL (6.4-8.2)
[2017-08-14 08:00] VITALS: BP 157/72
--- NOTE | 2017-08-14 09:00 | NUR ---
case management visits with patient, patient denies any home needs
--- NOTE | 2017-08-14 09:15 | NUR ---
PT DOING IS ON OWN. ACHIEVING VOLUME OF 1200. ENCOURAGED Q 2 HOUR USE.
[2017-08-14] MEDS ORDERED: ZITHROMAX500 MG PO (09:31)
--- NOTE | 2017-08-14 10:52 | NUR ---
Discharge instructions reviewed with patient/family. Patient receptive and verbalizes understanding. Follow-up care arranged. Written instructions given to patient/family. JURGEN NUR
[2017-08-16 00:05] LABS: ADENOVIRUS Negative (Negative); INFLUENZA A Negative (Negative); INFLUENZA B Negative (Negative); METAPNEUMOVIRUS Negative (Negative); PARAINFLUENZA 1 Negative (Negative); PARAINFLUENZA 2 Negative (Negative); PARAINFLUENZA 3 Negative (Negative); RHINOVIRUS Positive (Negative); RSV A Negative (Negative); RSV B Negative (Negative)
== END 2017-08-14 10:52 | disposition home or self-care (01) | DRG 871 ==
LOC: ED 18:28 → EDHOLD 20:54 → 5E 20:54
PROVIDERS: Internal Medicine; Internal Medicine Critical Care Medicine; Physician Assistant; Registered Nurse; ADMIT Internal Medicine
DX: A41.9 Sepsis, unspecified organism (principal); J18.9 Pneumonia, unspecified organism; E44.0 Moderate protein-calorie malnutrition; Z94.83 Pancreas transplant status; E11.22 Type 2 diabetes mellitus with diabetic chronic kidney disease; E11.43 Type 2 diabetes mellitus with diabetic autonomic (poly)neuropathy; Z94.0 Kidney transplant status; N18.4 Chronic kidney disease, stage 4 (severe); E87.8 Other disorders of electrolyte and fluid balance, not elsewhere classified; E83.51 Hypocalcemia; T45.1X5A Adverse effect of antineoplastic and immunosuppressive drugs, initial encounter; T38.0X5A Adverse effect of glucocorticoids and synthetic analogues, initial encounter; I12.9 Hypertensive chronic kidney disease with stage 1 through stage 4 chronic kidney disease, or unspecified chronic kidney disease; J20.9 Acute bronchitis, unspecified; I95.1 Orthostatic hypotension; E78.1 Pure hyperglyceridemia; I25.10 Atherosclerotic heart disease of native coronary artery without angina pectoris; E03.9 Hypothyroidism, unspecified; R65.20 Severe sepsis without septic shock; E87.5 Hyperkalemia; D64.9 Anemia, unspecified; Z98.61 Coronary angioplasty status; I25.2 Old myocardial infarction; Z87.01 Personal history of pneumonia (recurrent); Z82.49 Family history of ischemic heart disease and other diseases of the circulatory system; Z83.3 Family history of diabetes mellitus; Z79.82 Long term (current) use of aspirin; Z79.899 Other long term (current) drug therapy; Z72.0 Tobacco use; Y92.89 Other specified places as the place of occurrence of the external cause; Z68.20 Body mass index [BMI] 20.0-20.9, adult

== ENCOUNTER → 2017-09-02 | Outpatient (CLI) | payer OTHER ==
[~2017-09-02] MED LIST changes: +NIFEDIPINE30 MG PO; +ZITHROMAX500 MG PO
[2017-09-02 11:06] LABS: BASO % 0.2 % (0.0-1.0); EOS # 0.1 10*3/uL (0.0-0.4); HEMATOCRIT 37.2 % (42.0-52.0); LYMPH # 0.6 10*3/uL (1.3-4.4); LYMPH % 5.7 % (27.0-41.0); MEAN CELL VOLUME 83.6 fl (80.0-94.0); MEAN CORPUSCULAR HGB CONC 32.3 g/dl (33.0-37.0); MEAN PLATELET VOLUME 9.4 fl (9.6-12.3); MONO # 0.6 10*3/uL (0.1-1.0); MONO % 5.8 % (3.0-9.0); NEUT # 8.5 10*3/uL (2.3-7.9); PLATELET COUNT AUTOMATED 277 10*3/uL (130-400); RED BLOOD COUNT 4.45 10*6/uL (4.50-5.90); WHITE BLOOD COUNT 9.8 10*3/uL (4.8-10.8)
[2017-09-02 11:36] LABS: ALBUMIN 3.7 gm/dl (3.1-4.5); CREATININE 1.59 mg/dL (0.70-1.30); POTASSIUM 5.4 mmol/L (3.5-5.1); TOTAL PROTEIN 6.8 gm/dL (6.4-8.2); URIC ACID 6.6 mg/dL (3.5-7.2)
[2017-09-02 11:37] LABS: URINE CREATININE RANDOM 70.5 mg/dL
[2017-09-02 13:39] LABS: FERRITIN 794.5 ng/mL (22.0-322.0); PTH INTACT 64.2 pg/mL (14.0-72.0)
[2017-09-03 11:05] LABS: TRANSFERRIN 004937 153 mg/dL (200-370)
[2017-09-03 15:06] LABS: CYCLOSPORINE, BLOOD 421 ng/mL (100-400)
[2017-09-04 15:11] LABS: BK QUANTITATION PCR Negative (Negative)
== END | disposition home or self-care (01) ==
LOC: LAB 10:34
PROVIDERS: Internal Medicine Nephrology
DX: D50.9 Iron deficiency anemia, unspecified (principal); Z79.899 Other long term (current) drug therapy; Z94.0 Kidney transplant status

== ENCOUNTER → 2017-10-15 | Outpatient (CLI) | payer OTHER ==
[2017-10-15 10:33] LABS: BASO % 0.1 % (0.0-1.0); EOS # 0.1 10*3/uL (0.0-0.4); EOS % 1.5 % (1.0-4.0); HEMATOCRIT 39.4 % (42.0-52.0); HEMOGLOBIN 12.1 g/dl (14.0-18.0); LYMPH # 0.6 10*3/uL (1.3-4.4); LYMPH % 7.4 % (27.0-41.0); MEAN CELL VOLUME 85.7 fl (80.0-94.0); MEAN CORPUSCULAR HGB 26.3 pg (27.0-31.0); MEAN CORPUSCULAR HGB CONC 30.7 g/dl (33.0-37.0); MEAN PLATELET VOLUME 9.3 fl (9.6-12.3); MONO # 0.8 10*3/uL (0.1-1.0); MONO % 9.1 % (3.0-9.0); NEUT # 6.8 10*3/uL (2.3-7.9); NEUT % 81.7 % (47.0-73.0); PLATELET COUNT AUTOMATED 231 10*3/uL (130-400); RED CELL DISTRI WIDTH 14.6 % (0-14.5); WHITE BLOOD COUNT 8.3 10*3/uL (4.8-10.8)
[2017-10-15 10:36] LABS: URINE CREATININE RANDOM 76.9 mg/dL
[2017-10-15 11:01] LABS: ALBUMIN 3.6 gm/dl (3.1-4.5); CREATININE 1.7 mg/dL (0.70-1.30); PHOSPHOROUS 2.9 mg/dL (2.5-4.9); POTASSIUM 4.9 mmol/L (3.5-5.1); URIC ACID 6.6 mg/dL (3.5-7.2)
[2017-10-15 12:06] LABS: FERRITIN 582.1 ng/mL (22.0-322.0); PTH INTACT 71.9 pg/mL (14.0-72.0)
[2017-10-16 07:06] LABS: TRANSFERRIN 004937 151 mg/dL (200-370)
[2017-10-16 16:10] LABS: CYCLOSPORINE, BLOOD 689 ng/mL (100-400)
[2017-10-18 15:08] LABS: BK QUANTITATION PCR Negative (Negative)
== END | disposition home or self-care (01) ==
LOC: LAB 10:00
PROVIDERS: Internal Medicine Nephrology
DX: D50.9 Iron deficiency anemia, unspecified (principal); Z79.899 Other long term (current) drug therapy; Z94.0 Kidney transplant status

== ENCOUNTER → 2017-11-04 | Outpatient (CLI) | payer OTHER ==
[2017-11-04 10:13] LABS: BASO % 0.1 % (0.0-1.0); EOS # 0.1 10*3/uL (0.0-0.4); EOS % 1.5 % (1.0-4.0); HEMATOCRIT 41.2 % (42.0-52.0); HEMOGLOBIN 12.9 g/dl (14.0-18.0); LYMPH # 0.5 10*3/uL (1.3-4.4); LYMPH % 5.7 % (27.0-41.0); MEAN CELL VOLUME 84.9 fl (80.0-94.0); MEAN CORPUSCULAR HGB 26.6 pg (27.0-31.0); MEAN CORPUSCULAR HGB CONC 31.3 g/dl (33.0-37.0); MEAN PLATELET VOLUME 9.2 fl (9.6-12.3); MONO % 12.2 % (3.0-9.0); NEUT # 6.3 10*3/uL (2.3-7.9); NEUT % 80.2 % (47.0-73.0); PLATELET COUNT AUTOMATED 248 10*3/uL (130-400); RED BLOOD COUNT 4.85 10*6/uL (4.50-5.90); RED CELL DISTRI WIDTH 14.2 % (0-14.5); WHITE BLOOD COUNT 7.9 10*3/uL (4.8-10.8)
[2017-11-04 10:27] LABS: URINE CREATININE RANDOM 69.3 mg/dL
[2017-11-04 10:41] LABS: ALBUMIN 3.6 gm/dl (3.1-4.5); CREATININE 2.02 mg/dL (0.70-1.30); PHOSPHOROUS 3.3 mg/dL (2.5-4.9); TOTAL PROTEIN 6.7 gm/dL (6.4-8.2); URIC ACID 6.9 mg/dL (3.5-7.2)
[2017-11-04 12:44] LABS: FERRITIN 569.9 ng/mL (22.0-322.0); PTH INTACT 63.4 pg/mL (14.0-72.0)
[2017-11-05 07:05] LABS: TRANSFERRIN 004937 137 mg/dL (200-370)
[2017-11-05 15:07] LABS: CYCLOSPORINE, BLOOD 351 ng/mL (100-400)
[2017-11-06 14:09] LABS: BK QUANTITATION PCR Negative (Negative)
== END | disposition home or self-care (01) ==
LOC: LAB 09:37
PROVIDERS: Internal Medicine Nephrology
DX: D50.9 Iron deficiency anemia, unspecified (principal); Z94.0 Kidney transplant status; Z79.899 Other long term (current) drug therapy

== ENCOUNTER → 2017-11-22 | Outpatient (CLI) | payer OTHER ==
[~2017-11-22] MED LIST changes: +NASONEB NASAL1 EACH MC; +OXYBUTYNIN5 MG PO
[2017-11-22 10:23] LABS: BASO % 0.2 % (0.0-1.0); EOS # 0.2 10*3/uL (0.0-0.4); EOS % 1.6 % (1.0-4.0); HEMATOCRIT 38.9 % (42.0-52.0); HEMOGLOBIN 12.2 g/dl (14.0-18.0); LYMPH # 0.5 10*3/uL (1.3-4.4); LYMPH % 4.7 % (27.0-41.0); MEAN CELL VOLUME 86.4 fl (80.0-94.0); MEAN CORPUSCULAR HGB 27.1 pg (27.0-31.0); MEAN CORPUSCULAR HGB CONC 31.4 g/dl (33.0-37.0); MEAN PLATELET VOLUME 9.3 fl (9.6-12.3); MONO # 1.5 10*3/uL (0.1-1.0); MONO % 14.2 % (3.0-9.0); NEUT # 8.1 10*3/uL (2.3-7.9); NEUT % 79.1 % (47.0-73.0); PLATELET COUNT AUTOMATED 253 10*3/uL (130-400); RED CELL DISTRI WIDTH 14.1 % (0-14.5); WHITE BLOOD COUNT 10.2 10*3/uL (4.8-10.8)
[2017-11-22 10:38] LABS: CREATININE 2.34 mg/dL (0.70-1.30); POTASSIUM 4.6 mmol/L (3.5-5.1)
[2017-11-25 16:05] LABS: CYCLOSPORINE, BLOOD 662 ng/mL (100-400)
== END | disposition home or self-care (01) ==
LOC: LAB 09:57
PROVIDERS: Internal Medicine Nephrology
DX: D50.9 Iron deficiency anemia, unspecified (principal); Z94.0 Kidney transplant status; Z79.899 Other long term (current) drug therapy

== ENCOUNTER 2017-11-23 08:46 | Inpatient (IN) | payer OTHER ==
[~2017-11-23] VITALS: Ht 154.9 cm; Wt 66.7 kg
[2017-11-23] VITALS (7 sets, daily range): BP systolic 105–159; BP diastolic 60–75
[~2017-11-23 08:46] MED LIST changes: -OXYBUTYNIN5 MG PO
[2017-11-23] MEDS ORDERED: OXYBUTYNIN5 MG PO (09:04)
[2017-11-23 09:27] LABS: HEMATOCRIT 39.7 % (42.0-52.0); MEAN CELL VOLUME 85.7 fl (80.0-94.0); MEAN CORPUSCULAR HGB 25.9 pg (27.0-31.0); MEAN CORPUSCULAR HGB CONC 30.2 g/dl (33.0-37.0); MEAN PLATELET VOLUME 9.7 fl (9.6-12.3); PLATELET COUNT AUTOMATED 254 10*3/uL (130-400); RED BLOOD COUNT 4.63 10*6/uL (4.50-5.90); RED CELL DISTRI WIDTH 14.1 % (0-14.5); WHITE BLOOD COUNT 12.9 10*3/uL (4.8-10.8)
[2017-11-23 09:42] LABS: ALBUMIN 3.2 gm/dl (3.1-4.5); CREATININE 2.64 mg/dL (0.70-1.30); POTASSIUM 4.5 mmol/L (3.5-5.1); TOTAL PROTEIN 6.5 gm/dL (6.4-8.2)
[2017-11-23 09:52] LABS: BILIRUBIN NEGATIVE (NEGATIVE); CLARITY SL CLOUDY (CLEAR); COLOR YELLOW (YELLOW); GLUCOSE NEGATIVE (NEGATIVE); KETONE NEGATIVE (NEGATIVE)
[2017-11-23 09:53] LABS: BLOOD 3+ (NEGATIVE); LEUKO ESTERASE 3+ (NEGATIVE); NITRITE NEGATIVE (NEGATIVE); UROBILINOGEN 0.2 E.U./dl (0.2-1.0)
[2017-11-23 09:54] LABS: BACTERIA 2+; MUCOUS TRACE; RBC 41-50 rbc/hpf (0-2); WBC TNTC wbc/hpf (0-5)
[2017-11-23 09:57] LABS: PLATELET SUFFICIENCY NORMAL (NORMAL); TOTAL CELLS COUNTED 100 #CELLS
[2017-11-24] VITALS: BP 172/70
[2017-11-24 06:50] LABS: HEMATOCRIT 34.5 % (42.0-52.0); MEAN CORPUSCULAR HGB 27.1 pg (27.0-31.0); MEAN CORPUSCULAR HGB CONC 31.9 g/dl (33.0-37.0); MEAN PLATELET VOLUME 9.8 fl (9.6-12.3); PLATELET COUNT AUTOMATED 215 10*3/uL (130-400); RED BLOOD COUNT 4.06 10*6/uL (4.50-5.90); WHITE BLOOD COUNT 10.2 10*3/uL (4.8-10.8)
[2017-11-24 07:24] LABS: CREATININE 1.93 mg/dL (0.70-1.30); PHOSPHOROUS 2.4 mg/dL (2.5-4.9); POTASSIUM 4.1 mmol/L (3.5-5.1)
[2017-11-24 07:30] LABS: THYROID STIM HORMONE (HS) 0.904 uIU/ml (0.358-4.75)
[2017-11-24 07:52] LABS: BASOPHILS 1 % (0-1); BURR CELLS FEW; PLATELET SUFFICIENCY NORMAL (NORMAL); SCHISTOCYTES FEW; TOTAL CELLS COUNTED 100 #CELLS
[2017-11-24 08:00] VITALS: BP 143/68
[2017-11-24 08:47] LABS: VITAMIN D, 25-HYDROXY 9.7 ng/mL (30-100)
[2017-11-24 12:00] VITALS: BP 145/65
[2017-11-24 16:00] VITALS: BP 153/71
[2017-11-24 20:00] VITALS: BP 153/78
[2017-11-25 00:17] VITALS: BP 179/82
[2017-11-25 07:30] LABS: POTASSIUM 3.9 mmol/L (3.5-5.1)
[2017-11-25 07:49] LABS: ALBUMIN 2.7 gm/dl (3.1-4.5); CREATININE 1.93 mg/dL (0.70-1.30); PHOSPHOROUS 2.7 mg/dL (2.5-4.9)
[2017-11-25 08:00] VITALS: BP 128/56
[2017-11-25 12:00] VITALS: BP 131/77
[2017-11-25 16:00] VITALS: BP 158/79
[2017-11-25 20:00] VITALS: BP 149/79
[2017-11-26] VITALS: BP 184/80
[2017-11-26 07:20] LABS: BASO % 0.1 % (0.0-1.0); EOS # 0.2 10*3/uL (0.0-0.4); EOS % 1.8 % (1.0-4.0); HEMATOCRIT 35.1 % (42.0-52.0); HEMOGLOBIN 10.9 g/dl (14.0-18.0); LYMPH # 0.6 10*3/uL (1.3-4.4); LYMPH % 6.3 % (27.0-41.0); MEAN CELL VOLUME 84.2 fl (80.0-94.0); MEAN CORPUSCULAR HGB 26.1 pg (27.0-31.0); MEAN CORPUSCULAR HGB CONC 31.1 g/dl (33.0-37.0); MEAN PLATELET VOLUME 9.5 fl (9.6-12.3); MONO # 1.2 10*3/uL (0.1-1.0); MONO % 13.4 % (3.0-9.0); NEUT % 78.1 % (47.0-73.0); PLATELET COUNT AUTOMATED 232 10*3/uL (130-400); RED BLOOD COUNT 4.17 10*6/uL (4.50-5.90); RED CELL DISTRI WIDTH 13.8 % (0-14.5); WHITE BLOOD COUNT 8.9 10*3/uL (4.8-10.8)
[2017-11-26 07:28] LABS: CREATININE 1.7 mg/dL (0.70-1.30); POTASSIUM 3.9 mmol/L (3.5-5.1)
[2017-11-26 08:00] VITALS: BP 154/72
[2017-11-26 12:00] VITALS: BP 115/68
[2017-11-26 16:00] VITALS: BP 127/68
[2017-11-26 20:00] VITALS: BP 148/72
[2017-11-27] VITALS: BP 136/73
[2017-11-27 06:35] LABS: BASO % 0.2 % (0.0-1.0); EOS # 0.1 10*3/uL (0.0-0.4); EOS % 1.5 % (1.0-4.0); HEMATOCRIT 34.5 % (42.0-52.0); HEMOGLOBIN 11.1 g/dl (14.0-18.0); LYMPH # 0.6 10*3/uL (1.3-4.4); MEAN CELL VOLUME 84.1 fl (80.0-94.0); MEAN CORPUSCULAR HGB 27.1 pg (27.0-31.0); MEAN CORPUSCULAR HGB CONC 32.2 g/dl (33.0-37.0); MEAN PLATELET VOLUME 9.4 fl (9.6-12.3); MONO % 15.7 % (3.0-9.0); NEUT # 4.5 10*3/uL (2.3-7.9); NEUT % 72.3 % (47.0-73.0); PLATELET COUNT AUTOMATED 228 10*3/uL (130-400); RED CELL DISTRI WIDTH 13.7 % (0-14.5); WHITE BLOOD COUNT 6.2 10*3/uL (4.8-10.8)
[2017-11-27 06:51] LABS: CREATININE 1.61 mg/dL (0.70-1.30); POTASSIUM 3.7 mmol/L (3.5-5.1)
[2017-11-27 08:00] VITALS: BP 140/71
[2017-11-27 12:00] VITALS: BP 119/68
[2017-11-27] MEDS ORDERED: FLUCONAZOLE100 MG PO (12:55)
[2017-11-27] MEDS ORDERED: LEVAQUIN500 M2 PO (12:55)
[2017-11-27] MEDS ORDERED: VITAMIN D22000 UNIT PO (12:58)
== END 2017-11-27 15:40 | disposition home or self-care (01) | DRG 698 ==
LOC: ED 08:46 → EDHOLD 11:28 → 5E 11:28
PROVIDERS: Hospitalist; Nurse Practitioner Family; Student in an Organized Health Care Education/Training Program
DX: T86.19 Other complication of kidney transplant (principal); N17.0 Acute kidney failure with tubular necrosis; D84.9 Immunodeficiency, unspecified; E11.22 Type 2 diabetes mellitus with diabetic chronic kidney disease; Z94.83 Pancreas transplant status; N18.3 Chronic kidney disease, stage 3 (moderate); E44.1 Mild protein-calorie malnutrition; N10 Acute pyelonephritis; E87.8 Other disorders of electrolyte and fluid balance, not elsewhere classified; E83.51 Hypocalcemia; E87.1 Hypo-osmolality and hyponatremia; N13.30 Unspecified hydronephrosis; N13.4 Hydroureter; I25.10 Atherosclerotic heart disease of native coronary artery without angina pectoris; K59.00 Constipation, unspecified; D64.9 Anemia, unspecified; I12.9 Hypertensive chronic kidney disease with stage 1 through stage 4 chronic kidney disease, or unspecified chronic kidney disease; R31.29 Other microscopic hematuria; E78.1 Pure hyperglyceridemia; Z79.2 Long term (current) use of antibiotics; Z79.82 Long term (current) use of aspirin; Z79.899 Other long term (current) drug therapy; I25.2 Old myocardial infarction; Z98.61 Coronary angioplasty status; Z83.3 Family history of diabetes mellitus; Z82.49 Family history of ischemic heart disease and other diseases of the circulatory system; Z68.27 Body mass index [BMI] 27.0-27.9, adult

== ENCOUNTER → 2017-12-11 | Outpatient (CLI) | payer OTHER ==
[~2017-12-11] MED LIST changes: +FLUCONAZOLE100 MG PO; +LEVAQUIN500 M2 PO; +OXYBUTYNIN5 MG PO; +VITAMIN D22000 UNIT PO
[2017-12-11 10:20] LABS: BASO % 0.1 % (0.0-1.0); EOS # 0.1 10*3/uL (0.0-0.4); EOS % 1.5 % (1.0-4.0); HEMOGLOBIN 12.2 g/dl (14.0-18.0); LYMPH # 0.5 10*3/uL (1.3-4.4); LYMPH % 6.7 % (27.0-41.0); MEAN CELL VOLUME 84.6 fl (80.0-94.0); MEAN CORPUSCULAR HGB 25.8 pg (27.0-31.0); MEAN CORPUSCULAR HGB CONC 30.5 g/dl (33.0-37.0); MEAN PLATELET VOLUME 9.2 fl (9.6-12.3); MONO # 0.7 10*3/uL (0.1-1.0); MONO % 8.6 % (3.0-9.0); NEUT # 6.6 10*3/uL (2.3-7.9); NEUT % 82.8 % (47.0-73.0); PLATELET COUNT AUTOMATED 257 10*3/uL (130-400); RED BLOOD COUNT 4.73 10*6/uL (4.50-5.90); RED CELL DISTRI WIDTH 13.3 % (0-14.5)
[2017-12-11 10:27] LABS: URINE CREATININE RANDOM 44.3 mg/dL
[2017-12-11 10:51] LABS: ALBUMIN 3.7 gm/dl (3.1-4.5); CREATININE 1.85 mg/dL (0.70-1.30); PHOSPHOROUS 2.7 mg/dL (2.5-4.9); POTASSIUM 4.8 mmol/L (3.5-5.1); URIC ACID 5.9 mg/dL (3.5-7.2)
[2017-12-11 12:00] LABS: PTH INTACT 114.9 pg/mL (14.0-72.0)
[2017-12-12 08:11] LABS: TRANSFERRIN 004937 147 mg/dL (200-370)
[2017-12-12 15:06] LABS: CYCLOSPORINE, BLOOD 500 ng/mL (100-400)
[2017-12-13 15:06] LABS: BK QUANTITATION PCR Negative (Negative)
== END | disposition home or self-care (01) ==
LOC: LAB 09:53
PROVIDERS: Internal Medicine Nephrology
DX: D50.9 Iron deficiency anemia, unspecified (principal); R79.89 Other specified abnormal findings of blood chemistry; Z94.0 Kidney transplant status; Z79.899 Other long term (current) drug therapy

== ENCOUNTER → 2018-01-02 | Outpatient (CLI) | payer OTHER | END | disposition home or self-care (01) | LOC: LAB 07:50 | DX: R39.9 Unspecified symptoms and signs involving the genitourinary system (principal); Z94.0 Kidney transplant status; Z79.899 Other long term (current) drug therapy ==

== ENCOUNTER → 2018-01-13 | Outpatient (CLI) | payer OTHER ==
[2018-01-13 10:24] LABS: BILIRUBIN NEGATIVE (NEGATIVE); BLOOD 1+ (NEGATIVE); CLARITY CLOUDY (CLEAR); COLOR YELLOW (YELLOW); GLUCOSE NEGATIVE (NEGATIVE); KETONE NEGATIVE (NEGATIVE); LEUKO ESTERASE 3+ (NEGATIVE); NITRITE NEGATIVE (NEGATIVE); PH 7.5 (5.0-9.0); UROBILINOGEN 0.2 E.U./dl (0.2-1.0)
[2018-01-13 10:31] LABS: URINE CREATININE RANDOM 56.7 mg/dL
[2018-01-13 10:40] LABS: BASO % 0.2 % (0.0-1.0); EOS # 0.1 10*3/uL (0.0-0.4); HEMATOCRIT 41.3 % (42.0-52.0); HEMOGLOBIN 12.9 g/dl (14.0-18.0); LYMPH # 0.7 10*3/uL (1.3-4.4); LYMPH % 6.8 % (27.0-41.0); MEAN CELL VOLUME 83.3 fl (80.0-94.0); MEAN CORPUSCULAR HGB CONC 31.2 g/dl (33.0-37.0); MEAN PLATELET VOLUME 9.7 fl (9.6-12.3); MONO # 0.8 10*3/uL (0.1-1.0); MONO % 7.4 % (3.0-9.0); NEUT # 8.6 10*3/uL (2.3-7.9); NEUT % 84.4 % (47.0-73.0); PLATELET COUNT AUTOMATED 222 10*3/uL (130-400); RED BLOOD COUNT 4.96 10*6/uL (4.50-5.90); RED CELL DISTRI WIDTH 14.2 % (0-14.5); WHITE BLOOD COUNT 10.2 10*3/uL (4.8-10.8)
[2018-01-13 10:53] LABS: ALBUMIN 3.6 gm/dl (3.1-4.5); ALKALINE PHOSPHATASE 99 U/L (45-117); BUN 35 mg/dl (7-24); CHLORIDE 109 mmol/L (98-107); CREATININE 1.49 mg/dL (0.70-1.30); POTASSIUM 4.3 mmol/L (3.5-5.1); SGOT/AST 57 IU/L (3-35); SGPT/ALT 52 U/L (12-78); SODIUM 142 mmol/L (136-145); TOTAL PROTEIN 6.6 gm/dL (6.4-8.2)
[2018-01-13 11:58] LABS: BACTERIA 2+; MUCOUS 2+; WBC TNTC wbc/hpf (0-5)
[2018-01-14 15:08] LABS: CYCLOSPORINE, BLOOD 517 ng/mL (100-400)
== END | disposition home or self-care (01) ==
LOC: LAB 09:48
PROVIDERS: Internal Medicine Nephrology
DX: I10 Essential (primary) hypertension (principal); I25.10 Atherosclerotic heart disease of native coronary artery without angina pectoris; E78.5 Hyperlipidemia, unspecified; E03.9 Hypothyroidism, unspecified; I95.1 Orthostatic hypotension; D50.9 Iron deficiency anemia, unspecified; Z94.0 Kidney transplant status; Z79.899 Other long term (current) drug therapy

== ENCOUNTER → 2018-02-11 | Outpatient (CLI) | payer OTHER ==
[2018-02-11 10:18] LABS: BASO % 0.2 % (0.0-1.0); EOS # 0.1 10*3/uL (0.0-0.4); EOS % 1.4 % (1.0-4.0); HEMATOCRIT 40.1 % (42.0-52.0); HEMOGLOBIN 12.3 g/dl (14.0-18.0); LYMPH # 0.6 10*3/uL (1.3-4.4); LYMPH % 7.3 % (27.0-41.0); MEAN CELL VOLUME 83.2 fl (80.0-94.0); MEAN CORPUSCULAR HGB 25.5 pg (27.0-31.0); MEAN CORPUSCULAR HGB CONC 30.7 g/dl (33.0-37.0); MEAN PLATELET VOLUME 9.1 fl (9.6-12.3); MONO # 0.8 10*3/uL (0.1-1.0); MONO % 8.9 % (3.0-9.0); NEUT % 81.8 % (47.0-73.0); PLATELET COUNT AUTOMATED 233 10*3/uL (130-400); RED BLOOD COUNT 4.82 10*6/uL (4.50-5.90); RED CELL DISTRI WIDTH 14.1 % (0-14.5); WHITE BLOOD COUNT 8.5 10*3/uL (4.8-10.8)
[2018-02-11 10:41] LABS: CREATININE 2.18 mg/dL (0.70-1.30)
[2018-02-12 16:09] LABS: CYCLOSPORINE, BLOOD 648 ng/mL (100-400)
== END | disposition home or self-care (01) ==
LOC: LAB 09:51
PROVIDERS: Internal Medicine Nephrology
DX: D50.9 Iron deficiency anemia, unspecified (principal); Z94.0 Kidney transplant status; Z79.899 Other long term (current) drug therapy

== ENCOUNTER 2018-03-01 20:14 | Emergency (ER) | payer OTHER ==
[~2018-03-01] VITALS: Ht 154.9 cm; Wt 68.0 kg
[2018-03-01 20:19] VITALS: BP 147/89
[2018-03-01] MEDS ORDERED: AUGMENTIN 875875 MG PO (21:43)
== END 2018-03-01 21:35 | disposition home or self-care (01) ==
LOC: ED 20:14
DX: S41.152A Open bite of left upper arm, initial encounter (principal); S61.452A Open bite of left hand, initial encounter; Z94.0 Kidney transplant status; Z79.899 Other long term (current) drug therapy; Z79.82 Long term (current) use of aspirin; W54.0XXA Bitten by dog, initial encounter; Y93.89 Activity, other specified; Y92.89 Other specified places as the place of occurrence of the external cause; Y99.9 Unspecified external cause status

== ENCOUNTER → 2018-03-04 | Outpatient (CLI) | payer OTHER ==
[~2018-03-04] MED LIST changes: +AUGMENTIN 875875 MG PO
[2018-03-04 10:45] LABS: BASO % 0.1 % (0.0-1.0); EOS # 0.1 10*3/uL (0.0-0.4); EOS % 1.1 % (1.0-4.0); HEMATOCRIT 39.5 % (42.0-52.0); HEMOGLOBIN 11.9 g/dl (14.0-18.0); LYMPH # 0.5 10*3/uL (1.3-4.4); LYMPH % 4.9 % (27.0-41.0); MEAN CORPUSCULAR HGB 25.3 pg (27.0-31.0); MEAN CORPUSCULAR HGB CONC 30.1 g/dl (33.0-37.0); MEAN PLATELET VOLUME 9.6 fl (9.6-12.3); MONO # 0.7 10*3/uL (0.1-1.0); MONO % 7.7 % (3.0-9.0); NEUT % 85.9 % (47.0-73.0); PLATELET COUNT AUTOMATED 263 10*3/uL (130-400); RED CELL DISTRI WIDTH 14.3 % (0-14.5); WHITE BLOOD COUNT 9.3 10*3/uL (4.8-10.8)
[2018-03-04 10:47] LABS: URINE CREATININE RANDOM 63.6 mg/dL
[2018-03-04 11:14] LABS: ALBUMIN 3.7 gm/dl (3.1-4.5); CREATININE 2.24 mg/dL (0.70-1.30); PHOSPHOROUS 2.8 mg/dL (2.5-4.9); POTASSIUM 5.1 mmol/L (3.5-5.1); TOTAL PROTEIN 7.1 gm/dL (6.4-8.2); URIC ACID 6.4 mg/dL (3.5-7.2)
[2018-03-04 11:45] LABS: FERRITIN 614.9 ng/mL (22.0-322.0)
[2018-03-04 11:46] LABS: PTH INTACT 88.1 pg/mL (14.0-72.0)
[2018-03-05 08:10] LABS: TRANSFERRIN 004937 128 mg/dL (200-370)
[2018-03-05 16:07] LABS: CYCLOSPORINE, BLOOD 330 ng/mL (100-400)
[2018-03-06 16:09] LABS: BK QUANTITATION PCR Negative (Negative)
== END | disposition home or self-care (01) ==
LOC: LAB 09:58
PROVIDERS: Internal Medicine Nephrology
DX: D50.9 Iron deficiency anemia, unspecified (principal); Z94.0 Kidney transplant status; Z79.899 Other long term (current) drug therapy; Z88.8 Allergy status to other drugs, medicaments and biological substances

== ENCOUNTER → 2018-04-14 | Outpatient (CLI) | payer OTHER ==
[2018-04-14 10:28] LABS: BASO % 0.1 % (0.0-1.0); BILIRUBIN NEGATIVE (NEGATIVE); BLOOD TRACE-LYSED (NEGATIVE); CLARITY CLEAR (CLEAR); COLOR YELLOW (YELLOW); EOS # 0.1 10*3/uL (0.0-0.4); GLUCOSE NEGATIVE (NEGATIVE); HEMATOCRIT 40.3 % (42.0-52.0); HEMOGLOBIN 12.1 g/dl (14.0-18.0); KETONE NEGATIVE (NEGATIVE); LEUKO ESTERASE 3+ (NEGATIVE); LYMPH # 0.7 10*3/uL (1.3-4.4); LYMPH % 8.2 % (27.0-41.0); MEAN CELL VOLUME 87.2 fl (80.0-94.0); MEAN CORPUSCULAR HGB 26.2 pg (27.0-31.0); MEAN PLATELET VOLUME 9.4 fl (9.6-12.3); MONO # 0.7 10*3/uL (0.1-1.0); MONO % 8.5 % (3.0-9.0); NEUT # 6.8 10*3/uL (2.3-7.9); NITRITE NEGATIVE (NEGATIVE); PLATELET COUNT AUTOMATED 218 10*3/uL (130-400); RED BLOOD COUNT 4.62 10*6/uL (4.50-5.90); RED CELL DISTRI WIDTH 15.2 % (0-14.5); UROBILINOGEN 0.2 E.U./dl (0.2-1.0); WHITE BLOOD COUNT 8.3 10*3/uL (4.8-10.8)
[2018-04-14 10:35] LABS: BACTERIA 2+; MUCOUS 1+; WBC 41-50 wbc/hpf (0-5)
[2018-04-14 10:37] LABS: URINE CREATININE RANDOM 82.1 mg/dL
[2018-04-14 10:48] LABS: ALBUMIN 3.6 gm/dl (3.1-4.5); CREATININE 1.92 mg/dL (0.70-1.30); PHOSPHOROUS 3.7 mg/dL (2.5-4.9); POTASSIUM 5.2 mmol/L (3.5-5.1); TOTAL PROTEIN 6.6 gm/dL (6.4-8.2)
== END | disposition home or self-care (01) ==
LOC: LAB 10:00
PROVIDERS: Internal Medicine Nephrology
DX: I25.10 Atherosclerotic heart disease of native coronary artery without angina pectoris (principal); I10 Essential (primary) hypertension; E78.5 Hyperlipidemia, unspecified; E03.9 Hypothyroidism, unspecified; R05 Cough; I95.1 Orthostatic hypotension; E87.5 Hyperkalemia; D50.9 Iron deficiency anemia, unspecified; Z94.0 Kidney transplant status; Z79.899 Other long term (current) drug therapy

== ENCOUNTER → 2018-04-25 | Outpatient (CLI) | payer OTHER ==
[2018-04-25 10:20] LABS: URINE CREATININE RANDOM 78.7 mg/dL
[2018-04-25 10:21] LABS: BASO % 0.1 % (0.0-1.0); EOS # 0.1 10*3/uL (0.0-0.4); EOS % 1.1 % (1.0-4.0); HEMATOCRIT 37.2 % (42.0-52.0); HEMOGLOBIN 11.7 g/dl (14.0-18.0); LYMPH # 0.6 10*3/uL (1.3-4.4); LYMPH % 7.6 % (27.0-41.0); MEAN CELL VOLUME 84.2 fl (80.0-94.0); MEAN CORPUSCULAR HGB 26.5 pg (27.0-31.0); MEAN CORPUSCULAR HGB CONC 31.5 g/dl (33.0-37.0); MEAN PLATELET VOLUME 9.3 fl (9.6-12.3); MONO # 0.7 10*3/uL (0.1-1.0); MONO % 8.1 % (3.0-9.0); NEUT % 82.7 % (47.0-73.0); PLATELET COUNT AUTOMATED 222 10*3/uL (130-400); RED BLOOD COUNT 4.42 10*6/uL (4.50-5.90); RED CELL DISTRI WIDTH 14.9 % (0-14.5); WHITE BLOOD COUNT 8.4 10*3/uL (4.8-10.8)
[2018-04-25 10:51] LABS: ALBUMIN 3.6 gm/dl (3.1-4.5); CREATININE 1.86 mg/dL (0.70-1.30); PHOSPHOROUS 3.8 mg/dL (2.5-4.9); POTASSIUM 4.4 mmol/L (3.5-5.1); TOTAL PROTEIN 6.2 gm/dL (6.4-8.2); URIC ACID 7.5 mg/dL (3.5-7.2)
[2018-04-25 11:24] LABS: FERRITIN 644.7 ng/mL (22.0-322.0)
[2018-04-25 11:25] LABS: PTH INTACT 63.5 pg/mL (18.5-88.0)
[2018-04-26 09:05] LABS: TRANSFERRIN 004937 132 mg/dL (200-370)
[2018-04-28 15:07] LABS: CYCLOSPORINE, BLOOD 565 ng/mL (100-400)
[2018-04-29 14:08] LABS: BK QUANTITATION PCR Negative (Negative)
== END | disposition home or self-care (01) ==
LOC: LAB 09:42
PROVIDERS: Internal Medicine Nephrology
DX: D50.9 Iron deficiency anemia, unspecified (principal); D89.9 Disorder involving the immune mechanism, unspecified; Z94.0 Kidney transplant status; Z94.83 Pancreas transplant status; Z79.899 Other long term (current) drug therapy

== ENCOUNTER → 2018-06-25 | Outpatient (CLI) | payer OTHER ==
[~2018-06-25] MED LIST changes: +LEVOFLOXACIN500 MG PO
[2018-06-25 11:02] LABS: BASO % 0.2 % (0.0-1.0); EOS # 0.1 10*3/uL (0.0-0.4); HEMOGLOBIN 12.9 g/dl (14.0-18.0); LYMPH # 0.7 10*3/uL (1.3-4.4); LYMPH % 7.7 % (27.0-41.0); MEAN CELL VOLUME 86.3 fl (80.0-94.0); MEAN CORPUSCULAR HGB 27.2 pg (27.0-31.0); MEAN CORPUSCULAR HGB CONC 31.5 g/dl (33.0-37.0); MEAN PLATELET VOLUME 9.4 fl (9.6-12.3); MONO # 0.9 10*3/uL (0.1-1.0); MONO % 9.3 % (3.0-9.0); NEUT # 7.4 10*3/uL (2.3-7.9); NEUT % 81.6 % (47.0-73.0); PLATELET COUNT AUTOMATED 229 10*3/uL (130-400); RED BLOOD COUNT 4.75 10*6/uL (4.50-5.90); RED CELL DISTRI WIDTH 14.4 % (0-14.5); WHITE BLOOD COUNT 9.1 10*3/uL (4.8-10.8)
[2018-06-25 11:06] LABS: CREATININE 1.66 mg/dL (0.70-1.30); POTASSIUM 4.9 mmol/L (3.5-5.1)
[2018-06-26 14:08] LABS: CYCLOSPORINE, BLOOD 307 ng/mL (100-400)
== END | disposition home or self-care (01) ==
LOC: LAB 09:57
PROVIDERS: Internal Medicine Nephrology
DX: D89.9 Disorder involving the immune mechanism, unspecified (principal); D50.9 Iron deficiency anemia, unspecified; Z79.899 Other long term (current) drug therapy; Z94.0 Kidney transplant status; Z94.83 Pancreas transplant status

== ENCOUNTER 2018-07-09 16:10 | Emergency (ER) | payer OTHER ==
[~2018-07-09] VITALS: Ht 180.3 cm; Wt 63.5 kg
[2018-07-09 16:10] VITALS: BP 110/65
[~2018-07-09 16:10] MED LIST changes: -LEVOFLOXACIN500 MG PO
[2018-07-09 16:23] LABS: BILIRUBIN NEGATIVE (NEGATIVE); BLOOD 1+ (NEGATIVE); CLARITY CLEAR (CLEAR); COLOR YELLOW (YELLOW); GLUCOSE NEGATIVE (NEGATIVE); KETONE NEGATIVE (NEGATIVE); LEUKO ESTERASE 3+ (NEGATIVE); NITRITE NEGATIVE (NEGATIVE); UROBILINOGEN 0.2 E.U./dl (0.2-1.0)
[2018-07-09 16:31] LABS: BACTERIA TRACE; EPITHELIAL CELLS 0-2; MUCOUS TRACE; RBC 16-20 rbc/hpf (0-2)
[2018-07-09 17:58] LABS: BASO % 0.3 % (0.0-1.0); EOS % 0.5 % (1.0-4.0); HEMATOCRIT 41.3 % (42.0-52.0); HEMOGLOBIN 12.7 g/dl (14.0-18.0); LYMPH # 0.6 10*3/uL (1.3-4.4); LYMPH % 8.1 % (27.0-41.0); MEAN CELL VOLUME 87.5 fl (80.0-94.0); MEAN CORPUSCULAR HGB 26.9 pg (27.0-31.0); MEAN CORPUSCULAR HGB CONC 30.8 g/dl (33.0-37.0); MEAN PLATELET VOLUME 9.1 fl (9.6-12.3); MONO # 0.8 10*3/uL (0.1-1.0); MONO % 10.2 % (3.0-9.0); NEUT # 6.1 10*3/uL (2.3-7.9); NEUT % 80.6 % (47.0-73.0); PLATELET COUNT AUTOMATED 253 10*3/uL (130-400); RED BLOOD COUNT 4.72 10*6/uL (4.50-5.90); RED CELL DISTRI WIDTH 14.5 % (0-14.5); WHITE BLOOD COUNT 7.5 10*3/uL (4.8-10.8)
[2018-07-09 18:03] LABS: ALBUMIN 3.7 gm/dl (3.1-4.5); CREATININE 2.59 mg/dL (0.70-1.30)
== END 2018-07-09 19:37 | disposition home or self-care (01) ==
LOC: ED 16:10
PROVIDERS: Emergency Medicine
DX: N50.89 Other specified disorders of the male genital organs (principal); N17.9 Acute kidney failure, unspecified; I12.9 Hypertensive chronic kidney disease with stage 1 through stage 4 chronic kidney disease, or unspecified chronic kidney disease; E11.22 Type 2 diabetes mellitus with diabetic chronic kidney disease; N18.3 Chronic kidney disease, stage 3 (moderate); I25.10 Atherosclerotic heart disease of native coronary artery without angina pectoris; I25.2 Old myocardial infarction; Z79.899 Other long term (current) drug therapy; Z79.82 Long term (current) use of aspirin; Z87.19 Personal history of other diseases of the digestive system; Z87.891 Personal history of nicotine dependence; Z79.4 Long term (current) use of insulin

== ENCOUNTER → 2018-07-24 | Outpatient (CLI) | payer OTHER ==
[~2018-07-24] MED LIST changes: +LEVOFLOXACIN500 MG PO
[2018-07-24 10:38] LABS: BILIRUBIN NEGATIVE (NEGATIVE); BLOOD NEGATIVE (NEGATIVE); CLARITY CLEAR (CLEAR); COLOR YELLOW (YELLOW); GLUCOSE NEGATIVE (NEGATIVE); KETONE NEGATIVE (NEGATIVE); LEUKO ESTERASE 3+ (NEGATIVE); NITRITE NEGATIVE (NEGATIVE); UROBILINOGEN 0.2 E.U./dl (0.2-1.0)
[2018-07-24 10:46] LABS: URINE CREATININE RANDOM 51.6 mg/dL
[2018-07-24 10:54] LABS: BASO % 0.1 % (0.0-1.0); EOS # 0.1 10*3/uL (0.0-0.4); EOS % 1.5 % (1.0-4.0); HEMATOCRIT 40.1 % (42.0-52.0); HEMOGLOBIN 12.4 g/dl (14.0-18.0); LYMPH # 0.8 10*3/uL (1.3-4.4); MEAN CELL VOLUME 86.4 fl (80.0-94.0); MEAN CORPUSCULAR HGB 26.7 pg (27.0-31.0); MEAN CORPUSCULAR HGB CONC 30.9 g/dl (33.0-37.0); MEAN PLATELET VOLUME 8.9 fl (9.6-12.3); MONO # 0.8 10*3/uL (0.1-1.0); MONO % 8.8 % (3.0-9.0); NEUT # 7.7 10*3/uL (2.3-7.9); NEUT % 81.4 % (47.0-73.0); PLATELET COUNT AUTOMATED 328 10*3/uL (130-400); RED BLOOD COUNT 4.64 10*6/uL (4.50-5.90); RED CELL DISTRI WIDTH 14.5 % (0-14.5); WHITE BLOOD COUNT 9.5 10*3/uL (4.8-10.8)
[2018-07-24 10:57] LABS: BACTERIA TRACE; RBC 0-2 rbc/hpf (0-2)
[2018-07-24 11:08] LABS: ALBUMIN 3.7 gm/dl (3.1-4.5); CREATININE 1.8 mg/dL (0.70-1.30); PHOSPHOROUS 3.3 mg/dL (2.5-4.9); POTASSIUM 4.6 mmol/L (3.5-5.1)
[2018-07-24 11:10] LABS: TOTAL PROTEIN 6.7 gm/dL (6.4-8.2)
[2018-07-24 11:59] LABS: PTH INTACT 95.4 pg/mL (18.5-88.0); VITAMIN D, 25-HYDROXY 30.8 ng/mL (30-100)
[2018-07-25 15:08] LABS: CYCLOSPORINE, BLOOD 391 ng/mL (100-400)
== END | disposition home or self-care (01) ==
LOC: LAB 10:04
PROVIDERS: Internal Medicine Nephrology
DX: E78.5 Hyperlipidemia, unspecified (principal); I10 Essential (primary) hypertension; E87.5 Hyperkalemia; E10.22 Type 1 diabetes mellitus with diabetic chronic kidney disease; I95.1 Orthostatic hypotension; E03.9 Hypothyroidism, unspecified; D89.9 Disorder involving the immune mechanism, unspecified; D50.9 Iron deficiency anemia, unspecified; I25.10 Atherosclerotic heart disease of native coronary artery without angina pectoris; R05 Cough; Z79.899 Other long term (current) drug therapy; Z94.0 Kidney transplant status; Z94.83 Pancreas transplant status

== ENCOUNTER → 2018-08-22 | Outpatient (CLI) | payer OTHER ==
[2018-08-22 10:44] LABS: BASO % 0.1 % (0.0-1.0); EOS # 0.1 10*3/uL (0.0-0.4); EOS % 0.9 % (1.0-4.0); HEMATOCRIT 38.3 % (42.0-52.0); HEMOGLOBIN 11.6 g/dl (14.0-18.0); LYMPH # 0.6 10*3/uL (1.3-4.4); LYMPH % 5.6 % (27.0-41.0); MEAN CELL VOLUME 86.3 fl (80.0-94.0); MEAN CORPUSCULAR HGB 26.1 pg (27.0-31.0); MEAN CORPUSCULAR HGB CONC 30.3 g/dl (33.0-37.0); MEAN PLATELET VOLUME 9.1 fl (9.6-12.3); MONO # 1.1 10*3/uL (0.1-1.0); NEUT # 8.8 10*3/uL (2.3-7.9); PLATELET COUNT AUTOMATED 253 10*3/uL (130-400); RED BLOOD COUNT 4.44 10*6/uL (4.50-5.90); RED CELL DISTRI WIDTH 13.7 % (0-14.5); WHITE BLOOD COUNT 10.6 10*3/uL (4.8-10.8)
[2018-08-22 10:50] LABS: URINE CREATININE RANDOM 79.6 mg/dL
[2018-08-22 11:05] LABS: ALBUMIN 3.5 gm/dl (3.1-4.5); CREATININE 1.85 mg/dL (0.70-1.30); PHOSPHOROUS 4.1 mg/dL (2.5-4.9); POTASSIUM 4.4 mmol/L (3.5-5.1); URIC ACID 7.1 mg/dL (3.5-7.2)
[2018-08-22 11:36] LABS: FERRITIN 524.5 ng/mL (22.0-322.0); PTH INTACT 89.9 pg/mL (18.5-88.0)
[2018-08-23 10:08] LABS: LDL CHOLESTEROL (DIRECT) 161 mg/dL (0-99); TRANSFERRIN 004937 129 mg/dL (200-370)
[2018-08-25 13:08] LABS: CYCLOSPORINE, BLOOD 317 ng/mL (100-400)
[2018-08-25 14:09] LABS: BK QUANTITATION PCR Negative (Negative)
== END | disposition home or self-care (01) ==
LOC: LAB 09:53
PROVIDERS: Internal Medicine Nephrology
DX: D50.9 Iron deficiency anemia, unspecified (principal); D89.9 Disorder involving the immune mechanism, unspecified; Z79.899 Other long term (current) drug therapy; Z94.0 Kidney transplant status; Z94.83 Pancreas transplant status

== ENCOUNTER 2018-08-23 13:43 | Emergency (ER) | payer OTHER ==
[~2018-08-23] VITALS: Ht 180.3 cm; Wt 61.2 kg
[~2018-08-23 13:43] MED LIST changes: -LEVOFLOXACIN500 MG PO
[2018-08-23 14:05] LABS: BILIRUBIN NEGATIVE (NEGATIVE); BLOOD NEGATIVE (NEGATIVE); CLARITY SL CLOUDY (CLEAR); COLOR YELLOW (YELLOW); GLUCOSE NEGATIVE (NEGATIVE); KETONE NEGATIVE (NEGATIVE); LEUKO ESTERASE 3+ (NEGATIVE); NITRITE NEGATIVE (NEGATIVE); PH 7.5 (5.0-9.0); UROBILINOGEN 0.2 E.U./dl (0.2-1.0)
[2018-08-23 14:25] LABS: BASO % 0.1 % (0.0-1.0); EOS % 0.1 % (1.0-4.0); HEMATOCRIT 34.5 % (42.0-52.0); HEMOGLOBIN 11.1 g/dl (14.0-18.0); LYMPH # 0.6 10*3/uL (1.3-4.4); LYMPH % 6.4 % (27.0-41.0); MEAN CELL VOLUME 84.1 fl (80.0-94.0); MEAN CORPUSCULAR HGB 27.1 pg (27.0-31.0); MEAN CORPUSCULAR HGB CONC 32.2 g/dl (33.0-37.0); MEAN PLATELET VOLUME 8.8 fl (9.6-12.3); MONO # 0.9 10*3/uL (0.1-1.0); MONO % 9.1 % (3.0-9.0); NEUT # 7.9 10*3/uL (2.3-7.9); PLATELET COUNT AUTOMATED 226 10*3/uL (130-400); RED CELL DISTRI WIDTH 13.7 % (0-14.5); WHITE BLOOD COUNT 9.4 10*3/uL (4.8-10.8)
[2018-08-23 14:31] LABS: BACTERIA 2+
[2018-08-23 14:32] LABS: MUCOUS 2+
[2018-08-23 14:33] LABS: EPITHELIAL CELLS 0-2; WBC 16-20 wbc/hpf (0-5)
[2018-08-23 14:40] LABS: ALBUMIN 3.4 gm/dl (3.1-4.5); CREATININE 2.11 mg/dL (0.70-1.30); POTASSIUM 4.7 mmol/L (3.5-5.1); TOTAL PROTEIN 6.6 gm/dL (6.4-8.2)
[2018-08-23] MEDS ORDERED: LEVOFLOXACIN500 MG PO (15:35)
[2018-08-23 15:38] VITALS: BP 133/88
== END 2018-08-23 15:23 | disposition home or self-care (01) ==
LOC: ED 13:43
PROVIDERS: Emergency Medicine; Nurse Practitioner Family
DX: N39.0 Urinary tract infection, site not specified (principal); R09.81 Nasal congestion; Z79.2 Long term (current) use of antibiotics; Z94.83 Pancreas transplant status; Z94.0 Kidney transplant status; Z79.899 Other long term (current) drug therapy; Z79.82 Long term (current) use of aspirin

== ENCOUNTER → 2018-10-20 | Outpatient (CLI) | payer OTHER ==
[~2018-10-20] MED LIST changes: +LEVOFLOXACIN500 MG PO
[2018-10-20 11:13] LABS: CREATININE 2.74 mg/dL (0.70-1.30); POTASSIUM 4.8 mmol/L (3.5-5.1)
[2018-10-20 11:16] LABS: EOS # 0.1 10*3/uL (0.0-0.4); EOS % 1.5 % (1.0-4.0); HEMATOCRIT 38.3 % (42.0-52.0); HEMOGLOBIN 11.4 g/dl (14.0-18.0); LYMPH # 0.6 10*3/uL (1.3-4.4); LYMPH % 8.1 % (27.0-41.0); MEAN CELL VOLUME 88.2 fl (80.0-94.0); MEAN CORPUSCULAR HGB 26.3 pg (27.0-31.0); MEAN CORPUSCULAR HGB CONC 29.8 g/dl (33.0-37.0); MEAN PLATELET VOLUME 9.4 fl (9.6-12.3); MONO # 0.9 10*3/uL (0.1-1.0); MONO % 11.7 % (3.0-9.0); NEUT # 5.8 10*3/uL (2.3-7.9); NEUT % 78.4 % (47.0-73.0); PLATELET COUNT AUTOMATED 255 10*3/uL (130-400); RED BLOOD COUNT 4.34 10*6/uL (4.50-5.90); RED CELL DISTRI WIDTH 13.9 % (0-14.5); WHITE BLOOD COUNT 7.4 10*3/uL (4.8-10.8)
[2018-10-21 15:08] LABS: CYCLOSPORINE, BLOOD 341 ng/mL (100-400)
== END | disposition home or self-care (01) ==
LOC: LAB 10:19
PROVIDERS: Internal Medicine Nephrology
DX: D50.9 Iron deficiency anemia, unspecified (principal); D89.9 Disorder involving the immune mechanism, unspecified; Z94.0 Kidney transplant status; Z94.83 Pancreas transplant status; Z79.899 Other long term (current) drug therapy

== ENCOUNTER → 2018-10-27 | Outpatient (CLI) | payer OTHER ==
[2018-10-27 10:47] LABS: BASO % 0.2 % (0.0-1.0); EOS # 0.1 10*3/uL (0.0-0.4); EOS % 1.5 % (1.0-4.0); HEMATOCRIT 35.9 % (42.0-52.0); HEMOGLOBIN 11.2 g/dl (14.0-18.0); LYMPH # 0.7 10*3/uL (1.3-4.4); LYMPH % 11.6 % (27.0-41.0); MEAN CELL VOLUME 85.9 fl (80.0-94.0); MEAN CORPUSCULAR HGB 26.8 pg (27.0-31.0); MEAN CORPUSCULAR HGB CONC 31.2 g/dl (33.0-37.0); MEAN PLATELET VOLUME 8.9 fl (9.6-12.3); MONO # 0.8 10*3/uL (0.1-1.0); MONO % 13.1 % (3.0-9.0); NEUT # 4.3 10*3/uL (2.3-7.9); NEUT % 73.4 % (47.0-73.0); PLATELET COUNT AUTOMATED 285 10*3/uL (130-400); RED BLOOD COUNT 4.18 10*6/uL (4.50-5.90); WHITE BLOOD COUNT 5.9 10*3/uL (4.8-10.8)
[2018-10-27 10:50] LABS: BILIRUBIN NEGATIVE (NEGATIVE); BLOOD TRACE-INTACT (NEGATIVE); CLARITY SL CLOUDY (CLEAR); COLOR YELLOW (YELLOW); GLUCOSE NEGATIVE (NEGATIVE); KETONE NEGATIVE (NEGATIVE); LEUKO ESTERASE 3+ (NEGATIVE); NITRITE NEGATIVE (NEGATIVE); PH 7.5 (5.0-9.0); UROBILINOGEN 0.2 E.U./dl (0.2-1.0)
[2018-10-27 11:16] LABS: BACTERIA TRACE; MUCOUS 2+; WBC 16-20 wbc/hpf (0-5)
[2018-10-27 11:27] LABS: URINE CREATININE RANDOM 52.5 mg/dL
[2018-10-27 11:28] LABS: ALBUMIN 3.1 gm/dl (3.1-4.5); TOTAL PROTEIN 6.7 gm/dL (6.4-8.2)
[2018-10-27 11:29] LABS: CREATININE 2.21 mg/dL (0.70-1.30); PHOSPHOROUS 3.1 mg/dL (2.5-4.9)
[2018-10-27 11:59] LABS: PTH INTACT 107.3 pg/mL (18.5-88.0); VITAMIN D, 25-HYDROXY 21.5 ng/mL (30-100)
== END | disposition home or self-care (01) ==
LOC: LAB 10:10
PROVIDERS: Internal Medicine Nephrology
DX: I25.10 Atherosclerotic heart disease of native coronary artery without angina pectoris (principal); I10 Essential (primary) hypertension; E78.5 Hyperlipidemia, unspecified; E03.9 Hypothyroidism, unspecified; R05 Cough; I95.1 Orthostatic hypotension; E87.5 Hyperkalemia; E10.22 Type 1 diabetes mellitus with diabetic chronic kidney disease; Z94.0 Kidney transplant status

== ENCOUNTER → 2018-11-26 | Outpatient (CLI) | payer OTHER ==
[2018-11-26 11:15] LABS: BASO % 0.1 % (0.0-1.0); EOS # 0.1 10*3/uL (0.0-0.4); EOS % 1.9 % (1.0-4.0); HEMATOCRIT 37.9 % (42.0-52.0); HEMOGLOBIN 11.3 g/dl (14.0-18.0); LYMPH # 0.9 10*3/uL (1.3-4.4); LYMPH % 12.9 % (27.0-41.0); MEAN CELL VOLUME 88.1 fl (80.0-94.0); MEAN CORPUSCULAR HGB 26.3 pg (27.0-31.0); MEAN CORPUSCULAR HGB CONC 29.8 g/dl (33.0-37.0); MONO # 0.6 10*3/uL (0.1-1.0); MONO % 9.3 % (3.0-9.0); NEUT # 5.1 10*3/uL (2.3-7.9); NEUT % 75.7 % (47.0-73.0); PLATELET COUNT AUTOMATED 213 10*3/uL (130-400); RED CELL DISTRI WIDTH 14.8 % (0-14.5); WHITE BLOOD COUNT 6.8 10*3/uL (4.8-10.8)
[2018-11-26 11:30] LABS: CREATININE 1.94 mg/dL (0.70-1.30); POTASSIUM 4.1 mmol/L (3.5-5.1)
== END | disposition home or self-care (01) ==
LOC: LAB 09:58
PROVIDERS: Internal Medicine Nephrology
DX: Z48.298 Encounter for aftercare following other organ transplant (principal); T86.10 Unspecified complication of kidney transplant; T86.8 Complications of other transplanted organs and tissues; D89.9 Disorder involving the immune mechanism, unspecified; R68.89 Other general symptoms and signs; Z94.83 Pancreas transplant status; Z94.0 Kidney transplant status; Z79.899 Other long term (current) drug therapy

== ENCOUNTER → 2018-12-30 | Outpatient (CLI) | payer OTHER ==
[2018-12-30 10:23] LABS: URINE CREATININE RANDOM 53.1 mg/dL
[2018-12-30 10:42] LABS: ALBUMIN 3.2 gm/dl (3.1-4.5); CREATININE 1.82 mg/dL (0.70-1.30); PHOSPHOROUS 3.2 mg/dL (2.5-4.9); POTASSIUM 4.5 mmol/L (3.5-5.1); TOTAL PROTEIN 6.8 gm/dL (6.4-8.2); URIC ACID 7.3 mg/dL (3.5-7.2)
[2018-12-30 10:46] LABS: EOS # 0.2 10*3/uL (0.0-0.4); EOS % 2.3 % (1.0-4.0); HEMATOCRIT 37.8 % (42.0-52.0); HEMOGLOBIN 11.7 g/dl (14.0-18.0); LYMPH # 0.7 10*3/uL (1.3-4.4); LYMPH % 10.2 % (27.0-41.0); MEAN CELL VOLUME 86.7 fl (80.0-94.0); MEAN CORPUSCULAR HGB 26.8 pg (27.0-31.0); MEAN PLATELET VOLUME 9.6 fl (9.6-12.3); MONO # 0.7 10*3/uL (0.1-1.0); MONO % 10.2 % (3.0-9.0); PLATELET COUNT AUTOMATED 243 10*3/uL (130-400); RED BLOOD COUNT 4.36 10*6/uL (4.50-5.90); RED CELL DISTRI WIDTH 15.7 % (0-14.5); WHITE BLOOD COUNT 6.5 10*3/uL (4.8-10.8)
[2018-12-30 11:30] LABS: FERRITIN 503.6 ng/mL (22.0-322.0)
[2018-12-30 11:31] LABS: PTH INTACT 153.6 pg/mL (18.5-88.0)
[2019-01-01 16:10] LABS: BK QUANTITATION PCR Negative (Negative)
== END | disposition home or self-care (01) ==
LOC: LAB 09:43
PROVIDERS: Internal Medicine Nephrology
DX: Z48.298 Encounter for aftercare following other organ transplant (principal); D89.9 Disorder involving the immune mechanism, unspecified; T86.10 Unspecified complication of kidney transplant; R68.89 Other general symptoms and signs; Z79.899 Other long term (current) drug therapy

== ENCOUNTER → 2019-01-14 | Outpatient (CLI) | payer OTHER ==
[2019-01-14 14:19] LABS: BILIRUBIN NEGATIVE (NEGATIVE); BLOOD NEGATIVE (NEGATIVE); CLARITY CLEAR (CLEAR); COLOR YELLOW (YELLOW); GLUCOSE NEGATIVE (NEGATIVE); KETONE NEGATIVE (NEGATIVE); LEUKO ESTERASE 3+ (NEGATIVE); NITRITE NEGATIVE (NEGATIVE); UROBILINOGEN 0.2 E.U./dl (0.2-1.0)
[2019-01-14 14:41] LABS: BACTERIA 1+; MUCOUS 2+; WBC 16-20 wbc/hpf (0-5); YEAST 1+
== END | disposition home or self-care (01) ==
LOC: LAB 13:32
PROVIDERS: Internal Medicine Nephrology
DX: I10 Essential (primary) hypertension (principal); I25.10 Atherosclerotic heart disease of native coronary artery without angina pectoris; E78.5 Hyperlipidemia, unspecified; E03.9 Hypothyroidism, unspecified; E10.22 Type 1 diabetes mellitus with diabetic chronic kidney disease; I95.1 Orthostatic hypotension; E87.5 Hyperkalemia; R05 Cough; Z94.0 Kidney transplant status

== ENCOUNTER → 2019-04-02 | Outpatient (CLI) | payer OTHER ==
[2019-04-02 10:13] LABS: BASO % 0.2 % (0.0-1.0); EOS # 0.1 10*3/uL (0.0-0.4); EOS % 2.2 % (1.0-4.0); HEMATOCRIT 41.4 % (42.0-52.0); HEMOGLOBIN 13.1 g/dl (14.0-18.0); LYMPH % 18.1 % (27.0-41.0); MEAN CORPUSCULAR HGB 26.9 pg (27.0-31.0); MEAN CORPUSCULAR HGB CONC 31.6 g/dl (33.0-37.0); MEAN PLATELET VOLUME 9.3 fl (9.6-12.3); MONO # 0.6 10*3/uL (0.1-1.0); MONO % 11.2 % (3.0-9.0); NEUT # 3.8 10*3/uL (2.3-7.9); NEUT % 68.1 % (47.0-73.0); PLATELET COUNT AUTOMATED 250 10*3/uL (130-400); RED BLOOD COUNT 4.87 10*6/uL (4.50-5.90); RED CELL DISTRI WIDTH 14.4 % (0-14.5); WHITE BLOOD COUNT 5.5 10*3/uL (4.8-10.8)
[2019-04-02 10:21] LABS: URINE CREATININE RANDOM 58.1 mg/dL
[2019-04-02 10:33] LABS: ALBUMIN 3.5 gm/dl (3.1-4.5); CREATININE 2.15 mg/dL (0.70-1.30); PHOSPHOROUS 3.2 mg/dL (2.5-4.9); POTASSIUM 3.9 mmol/L (3.5-5.1); URIC ACID 5.8 mg/dL (3.5-7.2)
[2019-04-02 12:16] LABS: FERRITIN 505.8 ng/mL (22.0-322.0); PTH INTACT 30.1 pg/mL (18.5-88.0)
[2019-04-06 09:07] LABS: BK QUANTITATION PCR Negative (Negative)
== END | disposition home or self-care (01) ==
LOC: LAB 09:22
PROVIDERS: Internal Medicine Nephrology
DX: D89.9 Disorder involving the immune mechanism, unspecified (principal); E89.89 Other postprocedural endocrine and metabolic complications and disorders; R68.89 Other general symptoms and signs; T86.10 Unspecified complication of kidney transplant; T86.8 Complications of other transplanted organs and tissues; Z79.899 Other long term (current) drug therapy; Z94.0 Kidney transplant status; Z48.298 Encounter for aftercare following other organ transplant; Z94.83 Pancreas transplant status

== ENCOUNTER → 2019-04-27 | Outpatient (CLI) | payer OTHER ==
[2019-04-27 10:24] LABS: INTERNATIONAL NORM RATIO 0.9 (2.0-3.5)
[2019-04-27 10:28] LABS: BASO % 0.3 % (0.0-1.0); EOS # 0.1 10*3/uL (0.0-0.4); EOS % 1.6 % (1.0-4.0); HEMATOCRIT 41.8 % (42.0-52.0); HEMOGLOBIN 13.1 g/dl (14.0-18.0); LYMPH # 0.8 10*3/uL (1.3-4.4); LYMPH % 10.5 % (27.0-41.0); MEAN CORPUSCULAR HGB 26.6 pg (27.0-31.0); MEAN CORPUSCULAR HGB CONC 31.3 g/dl (33.0-37.0); MEAN PLATELET VOLUME 9.2 fl (9.6-12.3); MONO # 0.6 10*3/uL (0.1-1.0); MONO % 8.5 % (3.0-9.0); NEUT # 5.9 10*3/uL (2.3-7.9); NEUT % 78.8 % (47.0-73.0); PLATELET COUNT AUTOMATED 305 10*3/uL (130-400); RED BLOOD COUNT 4.92 10*6/uL (4.50-5.90); RED CELL DISTRI WIDTH 13.7 % (0-14.5); WHITE BLOOD COUNT 7.4 10*3/uL (4.8-10.8)
[2019-04-27 10:30] LABS: ALBUMIN 3.6 gm/dl (3.1-4.5); CREATININE 1.95 mg/dL (0.70-1.30); PHOSPHOROUS 3.3 mg/dL (2.5-4.9); POTASSIUM 4.2 mmol/L (3.5-5.1); URIC ACID 6.4 mg/dL (3.5-7.2)
[2019-04-27 11:27] LABS: FERRITIN 376.8 ng/mL (22.0-322.0); PTH INTACT 61.9 pg/mL (18.5-88.0)
[2019-04-29 14:17] LABS: BK QUANTITATION PCR Negative (Negative)
== END | disposition home or self-care (01) ==
LOC: LAB 09:41
PROVIDERS: Internal Medicine Nephrology
DX: Z48.298 Encounter for aftercare following other organ transplant (principal); D89.9 Disorder involving the immune mechanism, unspecified; T86.8 Complications of other transplanted organs and tissues; T86.10 Unspecified complication of kidney transplant; R68.89 Other general symptoms and signs; Z94.83 Pancreas transplant status; Z79.899 Other long term (current) drug therapy; Z94.0 Kidney transplant status

== ENCOUNTER → 2019-06-02 | Outpatient (CLI) | payer OTHER ==
[2019-06-02 09:55] LABS: BASO % 0.3 % (0.0-1.0); EOS # 0.2 10*3/uL (0.0-0.4); EOS % 2.5 % (1.0-4.0); HEMATOCRIT 35.2 % (42.0-52.0); HEMOGLOBIN 11.1 g/dl (14.0-18.0); LYMPH % 17.4 % (27.0-41.0); MEAN CELL VOLUME 85.2 fl (80.0-94.0); MEAN CORPUSCULAR HGB 26.9 pg (27.0-31.0); MEAN CORPUSCULAR HGB CONC 31.5 g/dl (33.0-37.0); MEAN PLATELET VOLUME 8.5 fl (9.6-12.3); MONO # 0.6 10*3/uL (0.1-1.0); MONO % 9.7 % (3.0-9.0); NEUT # 4.2 10*3/uL (2.3-7.9); NEUT % 69.8 % (47.0-73.0); PLATELET COUNT AUTOMATED 242 10*3/uL (130-400); RED BLOOD COUNT 4.13 10*6/uL (4.50-5.90); RED CELL DISTRI WIDTH 15.9 % (0-14.5)
[2019-06-02 10:27] LABS: ALBUMIN 3.6 gm/dl (3.1-4.5); BILIRUBIN, DIRECT < 0.1 mg/dL (0.0-0.2); BUN 41 mg/dl (7-24); CHLORIDE 116 mmol/L (98-107); GAMMA GLUTAMYL TRANSPEPTIDASE 21 U/L (15-85); HDL CHOLESTEROL 42 mg/dl (40-60); PHOSPHOROUS 3.5 mg/dL (2.5-4.9); POTASSIUM 4.3 mmol/L (3.5-5.1); SGOT/AST 29 IU/L (3-35); SGPT/ALT 61 U/L (12-78); SODIUM 141 mmol/L (136-145); TRIGLYCERIDES 392 mg/dl (<150)
[2019-06-02 10:28] LABS: ALKALINE PHOSPHATASE 53 U/L (45-117)
[2019-06-03 09:05] LABS: LDL CHOLESTEROL (DIRECT) 117 mg/dL (0-99)
[2019-06-03 13:07] LABS: CYCLOSPORINE, BLOOD 448 ng/mL (100-400)
== END | disposition home or self-care (01) ==
LOC: LAB 09:26
DX: D89.9 Disorder involving the immune mechanism, unspecified (principal); Z94.83 Pancreas transplant status; Z94.0 Kidney transplant status; Z79.899 Other long term (current) drug therapy

== ENCOUNTER 2019-06-17 19:55 | Emergency (ER) | payer OTHER ==
[~2019-06-17] VITALS: Ht 180.3 cm; Wt 68.0 kg
--- NOTE | ~2019-06-17 | EKG ---
[place], [place] ELECTROCARDIOGRAM REPORT NAME: PAUL JANE UNIT #: [id number] ROOM: DOCTOR: EPIPHANY DRAFT REPORT BIRTHDATE: [birth year] 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
[2019-06-17 22:30] LABS: EOS % 0.2 % (1.0-4.0); HEMATOCRIT 32.4 % (42.0-52.0); LYMPH # 0.5 10*3/uL (1.3-4.4); LYMPH % 7.4 % (27.0-41.0); MEAN CELL VOLUME 87.6 fl (80.0-94.0); MEAN CORPUSCULAR HGB CONC 30.9 g/dl (33.0-37.0); MEAN PLATELET VOLUME 8.9 fl (9.6-12.3); MONO # 0.5 10*3/uL (0.1-1.0); MONO % 7.2 % (3.0-9.0); NEUT # 5.3 10*3/uL (2.3-7.9); NEUT % 83.8 % (47.0-73.0); PLATELET COUNT AUTOMATED 189 10*3/uL (130-400); WHITE BLOOD COUNT 6.4 10*3/uL (4.8-10.8)
[2019-06-17 22:42] LABS: BILIRUBIN NEGATIVE (NEGATIVE); BLOOD 1+ (NEGATIVE); CLARITY CLEAR (CLEAR); COLOR YELLOW (YELLOW); GLUCOSE NEGATIVE (NEGATIVE); KETONE NEGATIVE (NEGATIVE); LEUKO ESTERASE 3+ (NEGATIVE); NITRITE NEGATIVE (NEGATIVE); UROBILINOGEN 0.2 E.U./dl (0.2-1.0)
[2019-06-17 22:47] LABS: ALBUMIN 3.7 gm/dl (3.1-4.5); CREATININE 4.42 mg/dL (0.70-1.30); POTASSIUM 4.8 mmol/L (3.5-5.1); TOTAL PROTEIN 6.2 gm/dL (6.4-8.2)
[2019-06-17 22:54] LABS: BACTERIA 2+; EPITHELIAL CELLS 0-2; MUCOUS TRACE; WBC 0-2 wbc/hpf (0-5)
[2019-06-17 23:37] LABS: TROPONIN I < 0.015 ng/ml (<0.045)
[2019-06-18] MEDS ORDERED: ELMIRON100 MG PO (02:55)
[2019-06-18 06:45] VITALS: BP 166/75
[2019-06-18 07:36] LABS: ABG HCO3 8.3 mmol/l (22-26); ABG O2 SATURATION 97.3 % (95-97); ARTERIAL BLOOD GAS PCO2 25.4 mmHg (35-45); ARTERIAL BLOOD GAS PO2 85.5 mmHg (80-90)
[2019-06-18 07:40] LABS: ABG BASE EXCESS -19.4 mmol/L (-2.0-2.0); ARTERIAL BLOOD GAS PH 7.139 (7.35-7.45)
== END 2019-06-18 07:40 | disposition short-term general hospital (02) ==
LOC: ED 19:55
PROVIDERS: Emergency Medicine; Physician Assistant
DX: N17.9 Acute kidney failure, unspecified (principal); R33.9 Retention of urine, unspecified; J32.9 Chronic sinusitis, unspecified; I12.9 Hypertensive chronic kidney disease with stage 1 through stage 4 chronic kidney disease, or unspecified chronic kidney disease; E11.22 Type 2 diabetes mellitus with diabetic chronic kidney disease; N18.3 Chronic kidney disease, stage 3 (moderate); I25.10 Atherosclerotic heart disease of native coronary artery without angina pectoris; I25.2 Old myocardial infarction; E03.9 Hypothyroidism, unspecified; Z94.0 Kidney transplant status; Z79.899 Other long term (current) drug therapy; Z79.82 Long term (current) use of aspirin; Z79.4 Long term (current) use of insulin; Z94.83 Pancreas transplant status; Z99.2 Dependence on renal dialysis; Z95.5 Presence of coronary angioplasty implant and graft

== ENCOUNTER → 2019-07-28 | Outpatient (CLI) | payer OTHER ==
[~2019-07-28] MED LIST changes: +ELMIRON100 MG PO
[2019-07-28 10:16] LABS: BILIRUBIN NEGATIVE (NEGATIVE); BLOOD NEGATIVE (NEGATIVE); CLARITY CLEAR (CLEAR); COLOR YELLOW (YELLOW); GLUCOSE NEGATIVE (NEGATIVE); KETONE NEGATIVE (NEGATIVE); LEUKO ESTERASE 3+ (NEGATIVE); NITRITE NEGATIVE (NEGATIVE); PH 7.5 (5.0-9.0); UROBILINOGEN 0.2 E.U./dl (0.2-1.0)
[2019-07-28 10:17] LABS: BASO % 0.3 % (0.0-1.0); EOS # 0.1 10*3/uL (0.0-0.4); EOS % 1.9 % (1.0-4.0); HEMATOCRIT 36.4 % (42.0-52.0); HEMOGLOBIN 10.9 g/dl (14.0-18.0); LYMPH # 0.8 10*3/uL (1.3-4.4); LYMPH % 11.4 % (27.0-41.0); MEAN CELL VOLUME 91.2 fl (80.0-94.0); MEAN CORPUSCULAR HGB 27.3 pg (27.0-31.0); MEAN CORPUSCULAR HGB CONC 29.9 g/dl (33.0-37.0); MEAN PLATELET VOLUME 8.7 fl (9.6-12.3); MONO # 0.7 10*3/uL (0.1-1.0); MONO % 9.9 % (3.0-9.0); NEUT # 5.5 10*3/uL (2.3-7.9); NEUT % 76.1 % (47.0-73.0); PLATELET COUNT AUTOMATED 268 10*3/uL (130-400); RED BLOOD COUNT 3.99 10*6/uL (4.50-5.90); RED CELL DISTRI WIDTH 14.8 % (0-14.5); WHITE BLOOD COUNT 7.3 10*3/uL (4.8-10.8)
[2019-07-28 10:25] LABS: URINE CREATININE RANDOM 55.8 mg/dL
[2019-07-28 10:34] LABS: BACTERIA 1+; EPITHELIAL CELLS 0-2; MUCOUS 1+; RBC 0-2 rbc/hpf (0-2)
[2019-07-28 10:52] LABS: ALBUMIN 3.6 gm/dl (3.1-4.5); CREATININE 2.52 mg/dL (0.70-1.30); PHOSPHOROUS 4.2 mg/dL (2.5-4.9); POTASSIUM 4.3 mmol/L (3.5-5.1); TOTAL PROTEIN 6.2 gm/dL (6.4-8.2)
[2019-07-29 16:05] LABS: CYCLOSPORINE, BLOOD 282 ng/mL (100-400)
== END | disposition home or self-care (01) ==
LOC: LAB 09:43
PROVIDERS: Internal Medicine Nephrology
DX: I12.9 Hypertensive chronic kidney disease with stage 1 through stage 4 chronic kidney disease, or unspecified chronic kidney disease (principal); I25.10 Atherosclerotic heart disease of native coronary artery without angina pectoris; E78.5 Hyperlipidemia, unspecified; E03.9 Hypothyroidism, unspecified; R05 Cough; I95.1 Orthostatic hypotension; E87.5 Hyperkalemia; E10.22 Type 1 diabetes mellitus with diabetic chronic kidney disease; N39.0 Urinary tract infection, site not specified; E21.1 Secondary hyperparathyroidism, not elsewhere classified

== ENCOUNTER → 2019-09-06 | Outpatient (CLI) | payer OTHER ==
[2019-09-06 10:32] LABS: BASO % 0.2 % (0.0-1.0); EOS # 0.2 10*3/uL (0.0-0.4); EOS % 2.4 % (1.0-4.0); HEMATOCRIT 37.4 % (42.0-52.0); HEMOGLOBIN 11.2 g/dl (14.0-18.0); LYMPH # 0.5 10*3/uL (1.3-4.4); LYMPH % 6.8 % (27.0-41.0); MEAN CELL VOLUME 90.3 fl (80.0-94.0); MEAN CORPUSCULAR HGB 27.1 pg (27.0-31.0); MEAN CORPUSCULAR HGB CONC 29.9 g/dl (33.0-37.0); MEAN PLATELET VOLUME 9.3 fl (9.6-12.3); MONO # 0.9 10*3/uL (0.1-1.0); MONO % 12.8 % (3.0-9.0); NEUT # 5.2 10*3/uL (2.3-7.9); NEUT % 77.5 % (47.0-73.0); PLATELET COUNT AUTOMATED 227 10*3/uL (130-400); RED BLOOD COUNT 4.14 10*6/uL (4.50-5.90); RED CELL DISTRI WIDTH 13.5 % (0-14.5); WHITE BLOOD COUNT 6.6 10*3/uL (4.8-10.8)
[2019-09-06 10:56] LABS: ALBUMIN 3.2 gm/dl (3.1-4.5); ALKALINE PHOSPHATASE 90 U/L (45-117); BILIRUBIN, DIRECT < 0.1 mg/dL (0.0-0.2); BUN 35 mg/dl (7-24); CHLORIDE 116 mmol/L (98-107); CREATININE 2.11 mg/dL (0.70-1.30); GAMMA GLUTAMYL TRANSPEPTIDASE 16 U/L (15-85); PHOSPHOROUS 3.4 mg/dL (2.5-4.9); POTASSIUM 4.7 mmol/L (3.5-5.1); SGOT/AST 32 IU/L (3-35); SGPT/ALT 44 U/L (12-78); SODIUM 143 mmol/L (136-145)
[2019-09-08 14:07] LABS: CYCLOSPORINE, BLOOD 237 ng/mL (100-400)
== END | disposition home or self-care (01) ==
LOC: LAB 09:26
PROVIDERS: Internal Medicine Nephrology
DX: D89.9 Disorder involving the immune mechanism, unspecified (principal); Z94.83 Pancreas transplant status; Z94.0 Kidney transplant status; Z79.899 Other long term (current) drug therapy

== ENCOUNTER → 2019-09-29 | Outpatient (CLI) | payer OTHER ==
[2019-09-29 10:05] LABS: BASO % 0.5 % (0.0-1.0); EOS # 0.3 10*3/uL (0.0-0.4); EOS % 4.3 % (1.0-4.0); HEMOGLOBIN 11.3 g/dl (14.0-18.0); LYMPH # 0.9 10*3/uL (1.3-4.4); LYMPH % 11.6 % (27.0-41.0); MEAN CELL VOLUME 89.4 fl (80.0-94.0); MEAN CORPUSCULAR HGB 27.3 pg (27.0-31.0); MEAN CORPUSCULAR HGB CONC 30.5 g/dl (33.0-37.0); MEAN PLATELET VOLUME 8.8 fl (9.6-12.3); MONO # 0.9 10*3/uL (0.1-1.0); MONO % 11.9 % (3.0-9.0); NEUT # 5.4 10*3/uL (2.3-7.9); NEUT % 71.3 % (47.0-73.0); PLATELET COUNT AUTOMATED 313 10*3/uL (130-400); RED BLOOD COUNT 4.14 10*6/uL (4.50-5.90); RED CELL DISTRI WIDTH 13.4 % (0-14.5); WHITE BLOOD COUNT 7.6 10*3/uL (4.8-10.8)
[2019-09-29 10:26] LABS: CHLORIDE 113 mmol/L (98-107); POTASSIUM 4.4 mmol/L (3.5-5.1); SODIUM 142 mmol/L (136-145)
[2019-09-29 10:35] LABS: ALBUMIN 3.5 gm/dl (3.1-4.5); ALKALINE PHOSPHATASE 103 U/L (45-117); BILIRUBIN, DIRECT < 0.1 mg/dL (0.0-0.2); BUN 42 mg/dl (7-24); CREATININE 2.34 mg/dL (0.70-1.30); GAMMA GLUTAMYL TRANSPEPTIDASE 19 U/L (15-85); SGOT/AST 17 IU/L (3-35); SGPT/ALT 34 U/L (12-78)
[2019-09-30 15:07] LABS: CYCLOSPORINE, BLOOD 357 ng/mL (100-400)
== END | disposition home or self-care (01) ==
LOC: LAB 09:36
PROVIDERS: Internal Medicine Nephrology
DX: D89.9 Disorder involving the immune mechanism, unspecified (principal); Z94.83 Pancreas transplant status; Z94.0 Kidney transplant status; Z79.899 Other long term (current) drug therapy

== ENCOUNTER → 2019-11-02 | Outpatient (CLI) | payer OTHER ==
[2019-11-02 14:02] LABS: BASO % 0.3 % (0.0-1.0); EOS # 0.1 10*3/uL (0.0-0.4); EOS % 1.5 % (1.0-4.0); HEMATOCRIT 40.8 % (42.0-52.0); HEMOGLOBIN 12.1 g/dl (14.0-18.0); LYMPH # 0.7 10*3/uL (1.3-4.4); LYMPH % 9.9 % (27.0-41.0); MEAN CELL VOLUME 91.7 fl (80.0-94.0); MEAN CORPUSCULAR HGB 27.2 pg (27.0-31.0); MEAN CORPUSCULAR HGB CONC 29.7 g/dl (33.0-37.0); MONO # 0.6 10*3/uL (0.1-1.0); MONO % 7.9 % (3.0-9.0); NEUT % 79.9 % (47.0-73.0); PLATELET COUNT AUTOMATED 299 10*3/uL (130-400); RED BLOOD COUNT 4.45 10*6/uL (4.50-5.90); RED CELL DISTRI WIDTH 14.5 % (0-14.5); WHITE BLOOD COUNT 7.5 10*3/uL (4.8-10.8)
[2019-11-02 14:24] LABS: ALBUMIN 3.8 gm/dl (3.1-4.5); CREATININE 2.05 mg/dL (0.70-1.30); PHOSPHOROUS 3.3 mg/dL (2.5-4.9); POTASSIUM 5.4 mmol/L (3.5-5.1); TOTAL PROTEIN 6.7 gm/dL (6.4-8.2)
[2019-11-02 14:39] LABS: URINE CREATININE RANDOM 48.8 mg/dL
[2019-11-02 14:52] LABS: CLARITY CLOUDY (CLEAR); COLOR YELLOW (YELLOW)
[2019-11-02 14:53] LABS: BILIRUBIN NEGATIVE (NEGATIVE); BLOOD TRACE-LYSED (NEGATIVE); GLUCOSE NEGATIVE (NEGATIVE); KETONE NEGATIVE (NEGATIVE); LEUKO ESTERASE 3+ (NEGATIVE); NITRITE NEGATIVE (NEGATIVE); SPECIFIC GRAVITY 1.005 (1.005-1.030); UROBILINOGEN 0.2 E.U./dl (0.2-1.0)
[2019-11-02 14:55] LABS: BACTERIA 1+; EPITHELIAL CELLS 0-2; MUCOUS 1+; WBC 21-30 wbc/hpf (0-5)
[2019-11-02 14:56] LABS: RBC 0-2 rbc/hpf (0-2)
== END | disposition home or self-care (01) ==
LOC: LAB 13:26
PROVIDERS: Internal Medicine Nephrology
DX: I10 Essential (primary) hypertension (principal); I25.10 Atherosclerotic heart disease of native coronary artery without angina pectoris; E78.5 Hyperlipidemia, unspecified; E03.9 Hypothyroidism, unspecified; I95.1 Orthostatic hypotension; E10.22 Type 1 diabetes mellitus with diabetic chronic kidney disease; N39.0 Urinary tract infection, site not specified; N30.10 Interstitial cystitis (chronic) without hematuria; R05 Cough; Z94.0 Kidney transplant status

== ENCOUNTER → 2019-11-16 | Outpatient (CLI) | payer OTHER ==
[2019-11-16 11:18] LABS: BASO % 0.2 % (0.0-1.0); EOS # 0.2 10*3/uL (0.0-0.4); EOS % 2.4 % (1.0-4.0); HEMATOCRIT 36.1 % (42.0-52.0); HEMOGLOBIN 11.2 g/dl (14.0-18.0); LYMPH # 0.9 10*3/uL (1.3-4.4); LYMPH % 10.8 % (27.0-41.0); MEAN CELL VOLUME 87.6 fl (80.0-94.0); MEAN CORPUSCULAR HGB 27.2 pg (27.0-31.0); MEAN PLATELET VOLUME 9.2 fl (9.6-12.3); MONO # 0.7 10*3/uL (0.1-1.0); MONO % 8.7 % (3.0-9.0); NEUT # 6.5 10*3/uL (2.3-7.9); NEUT % 76.9 % (47.0-73.0); PLATELET COUNT AUTOMATED 254 10*3/uL (130-400); RED BLOOD COUNT 4.12 10*6/uL (4.50-5.90); RED CELL DISTRI WIDTH 14.3 % (0-14.5); WHITE BLOOD COUNT 8.4 10*3/uL (4.8-10.8)
[2019-11-16 11:21] LABS: ALBUMIN 3.6 gm/dl (3.1-4.5); BILIRUBIN, DIRECT < 0.1 mg/dL (0.0-0.2); BUN 47 mg/dl (7-24); CHLORIDE 112 mmol/L (98-107); CREATININE 1.99 mg/dL (0.70-1.30); GAMMA GLUTAMYL TRANSPEPTIDASE 15 U/L (15-85); POTASSIUM 3.9 mmol/L (3.5-5.1); SGOT/AST 20 IU/L (3-35); SGPT/ALT 41 U/L (12-78); SODIUM 140 mmol/L (136-145); TOTAL PROTEIN 6.8 gm/dL (6.4-8.2)
[2019-11-16 11:24] LABS: ALKALINE PHOSPHATASE 78 U/L (45-117); CHOLESTEROL 199 mg/dL (<200); HDL CHOLESTEROL 42 mg/dl (40-60); LDL CHOLESTEROL 98 mg/dL (9-159); PHOSPHOROUS 3.5 mg/dL (2.5-4.9); TRIGLYCERIDES 295 mg/dl (<150); VLDL CHOLESTEROL 59 mg/dL (6-40)
[2019-11-17 16:07] LABS: CYCLOSPORINE, BLOOD 423 ng/mL (100-400)
== END | disposition home or self-care (01) ==
LOC: LAB 10:17
PROVIDERS: Internal Medicine Nephrology
DX: D89.9 Disorder involving the immune mechanism, unspecified (principal); Z79.899 Other long term (current) drug therapy; Z94.83 Pancreas transplant status; Z94.0 Kidney transplant status

== ENCOUNTER → 2019-12-04 | Outpatient (CLI) | payer OTHER ==
[2019-12-04 11:39] LABS: BASO % 0.2 % (0.0-1.0); EOS # 0.1 10*3/uL (0.0-0.4); EOS % 2.1 % (1.0-4.0); HEMOGLOBIN 10.7 g/dl (14.0-18.0); LYMPH # 0.9 10*3/uL (1.3-4.4); LYMPH % 15.2 % (27.0-41.0); MEAN CELL VOLUME 89.3 fl (80.0-94.0); MEAN CORPUSCULAR HGB 27.3 pg (27.0-31.0); MEAN CORPUSCULAR HGB CONC 30.6 g/dl (33.0-37.0); MEAN PLATELET VOLUME 9.1 fl (9.6-12.3); MONO # 0.6 10*3/uL (0.1-1.0); MONO % 10.7 % (3.0-9.0); NEUT # 4.1 10*3/uL (2.3-7.9); NEUT % 71.6 % (47.0-73.0); PLATELET COUNT AUTOMATED 282 10*3/uL (130-400); RED BLOOD COUNT 3.92 10*6/uL (4.50-5.90); RED CELL DISTRI WIDTH 14.6 % (0-14.5); WHITE BLOOD COUNT 5.8 10*3/uL (4.8-10.8)
[2019-12-04 12:16] LABS: ALBUMIN 3.4 gm/dl (3.1-4.5); ALKALINE PHOSPHATASE 62 U/L (45-117); BILIRUBIN, DIRECT < 0.1 mg/dL (0.0-0.2); BUN 41 mg/dl (7-24); CHLORIDE 112 mmol/L (98-107); GAMMA GLUTAMYL TRANSPEPTIDASE 13 U/L (15-85); PHOSPHOROUS 3.6 mg/dL (2.5-4.9); POTASSIUM 4.3 mmol/L (3.5-5.1); SGOT/AST 27 IU/L (3-35); SGPT/ALT 46 U/L (12-78); SODIUM 141 mmol/L (136-145); TOTAL PROTEIN 6.3 gm/dL (6.4-8.2)
[2019-12-07 15:06] LABS: CYCLOSPORINE, BLOOD 360 ng/mL (100-400)
== END | disposition home or self-care (01) ==
LOC: LAB 10:03
PROVIDERS: Internal Medicine Nephrology
DX: D89.9 Disorder involving the immune mechanism, unspecified (principal); Z94.83 Pancreas transplant status; Z94.0 Kidney transplant status; Z79.899 Other long term (current) drug therapy

== ENCOUNTER → 2020-03-14 | Outpatient (CLI) | payer OTHER ==
[2020-03-14 09:49] LABS: BASO % 0.2 % (0.0-1.0); EOS # 0.2 10*3/uL (0.0-0.4); EOS % 3.2 % (1.0-4.0); HEMATOCRIT 41.1 % (42.0-52.0); LYMPH % 16.9 % (27.0-41.0); MEAN CELL VOLUME 89.7 fl (80.0-94.0); MEAN CORPUSCULAR HGB 27.3 pg (27.0-31.0); MEAN CORPUSCULAR HGB CONC 30.4 g/dl (33.0-37.0); MEAN PLATELET VOLUME 9.4 fl (9.6-12.3); MONO # 0.6 10*3/uL (0.1-1.0); MONO % 11.2 % (3.0-9.0); NEUT # 3.8 10*3/uL (2.3-7.9); NEUT % 68.3 % (47.0-73.0); PLATELET COUNT AUTOMATED 225 10*3/uL (130-400); RED BLOOD COUNT 4.58 10*6/uL (4.50-5.90); RED CELL DISTRI WIDTH 13.9 % (0-14.5); WHITE BLOOD COUNT 5.6 10*3/uL (4.8-10.8)
[2020-03-14 10:13] LABS: ALBUMIN 3.5 gm/dl (3.1-4.5); BILIRUBIN, DIRECT < 0.1 mg/dL (0.0-0.2); BUN 39 mg/dl (7-24); CHLORIDE 114 mmol/L (98-107); CREATININE 1.82 mg/dL (0.70-1.30); GAMMA GLUTAMYL TRANSPEPTIDASE 14 U/L (15-85); POTASSIUM 4.4 mmol/L (3.5-5.1); SGOT/AST 23 IU/L (3-35); SGPT/ALT 50 U/L (12-78); SODIUM 143 mmol/L (136-145); TOTAL PROTEIN 6.5 gm/dL (6.4-8.2)
[2020-03-14 10:14] LABS: ALKALINE PHOSPHATASE 78 U/L (45-117)
[2020-03-15 13:06] LABS: CYCLOSPORINE, BLOOD 258 ng/mL (100-400)
== END | disposition home or self-care (01) ==
LOC: LAB 09:20
PROVIDERS: Internal Medicine Nephrology
DX: D89.9 Disorder involving the immune mechanism, unspecified (principal); Z94.83 Pancreas transplant status; Z94.0 Kidney transplant status; Z79.899 Other long term (current) drug therapy

== ENCOUNTER → 2020-05-05 | Outpatient (CLI) | payer OTHER ==
[2020-05-05 09:59] LABS: BASO % 0.2 % (0.0-1.0); EOS # 0.2 10*3/uL (0.0-0.4); EOS % 2.5 % (1.0-4.0); HEMATOCRIT 41.7 % (42.0-52.0); MEAN CELL VOLUME 88.2 fl (80.0-94.0); MEAN CORPUSCULAR HGB 26.6 pg (27.0-31.0); MEAN CORPUSCULAR HGB CONC 30.2 g/dl (33.0-37.0); MEAN PLATELET VOLUME 8.8 fl (9.6-12.3); MONO # 0.8 10*3/uL (0.1-1.0); MONO % 13.1 % (3.0-9.0); NEUT # 4.4 10*3/uL (2.3-7.9); PLATELET COUNT AUTOMATED 229 10*3/uL (130-400); RED BLOOD COUNT 4.73 10*6/uL (4.50-5.90); RED CELL DISTRI WIDTH 13.5 % (0-14.5); WHITE BLOOD COUNT 6.4 10*3/uL (4.8-10.8)
[2020-05-05 10:37] LABS: ALBUMIN 3.8 gm/dl (3.1-4.5); ALKALINE PHOSPHATASE 74 U/L (45-117); BILIRUBIN, DIRECT < 0.1 mg/dL (0.0-0.2); BUN 38 mg/dl (7-24); CHLORIDE 112 mmol/L (98-107); CREATININE 2.53 mg/dL (0.70-1.30); GAMMA GLUTAMYL TRANSPEPTIDASE 17 U/L (15-85); HDL CHOLESTEROL 57 mg/dl (40-60); POTASSIUM 4.8 mmol/L (3.5-5.1); SGOT/AST 22 IU/L (3-35); SGPT/ALT 34 U/L (12-78); SODIUM 140 mmol/L (136-145); TRIGLYCERIDES 188 mg/dl (<150)
[2020-05-06 08:12] LABS: LDL CHOLESTEROL (DIRECT) 137 mg/dL (0-99)
[2020-05-06 15:06] LABS: CYCLOSPORINE, BLOOD 191 ng/mL (100-400)
== END | disposition home or self-care (01) ==
LOC: LAB 09:26
PROVIDERS: Internal Medicine Nephrology
DX: D89.9 Disorder involving the immune mechanism, unspecified (principal); Z94.83 Pancreas transplant status; Z94.0 Kidney transplant status; Z79.899 Other long term (current) drug therapy

== ENCOUNTER → 2020-08-08 | Outpatient (CLI) | payer OTHER ==
[~2020-08-08] MED LIST changes: +CITALOPRAM HYDR40 MG PO
[2020-08-08 10:45] LABS: BASO % 0.1 % (0.0-1.0); EOS # 0.1 10*3/uL (0.0-0.4); EOS % 1.7 % (1.0-4.0); HEMATOCRIT 39.3 % (42.0-52.0); LYMPH # 0.8 10*3/uL (1.3-4.4); LYMPH % 10.1 % (27.0-41.0); MEAN CELL VOLUME 87.3 fl (80.0-94.0); MEAN CORPUSCULAR HGB 26.4 pg (27.0-31.0); MEAN CORPUSCULAR HGB CONC 30.3 g/dl (33.0-37.0); MEAN PLATELET VOLUME 8.7 fl (9.6-12.3); MONO # 0.8 10*3/uL (0.1-1.0); MONO % 10.4 % (3.0-9.0); NEUT # 5.9 10*3/uL (2.3-7.9); NEUT % 77.2 % (47.0-73.0); PLATELET COUNT AUTOMATED 242 10*3/uL (130-400); RED CELL DISTRI WIDTH 14.1 % (0-14.5); WHITE BLOOD COUNT 7.6 10*3/uL (4.8-10.8)
[2020-08-08 10:58] LABS: URINE CREATININE RANDOM 68.6 mg/dL
[2020-08-08 11:19] LABS: ALBUMIN 3.6 gm/dl (3.1-4.5); CREATININE 2.13 mg/dL (0.70-1.30); POTASSIUM 4.6 mmol/L (3.5-5.1); TOTAL PROTEIN 6.8 gm/dL (6.4-8.2); URIC ACID 7.3 mg/dL (3.5-7.2)
[2020-08-08 11:25] LABS: FERRITIN 627.1 ng/mL (22.0-322.0); PTH INTACT 157.4 pg/mL (18.5-88.0)
[2020-08-09 13:09] LABS: CYCLOSPORINE, BLOOD 382 ng/mL (100-400)
== END | disposition home or self-care (01) ==
LOC: LAB 10:08
PROVIDERS: ATTEND Nurse Practitioner
DX: I10 Essential (primary) hypertension (principal); D89.9 Disorder involving the immune mechanism, unspecified; R79.9 Abnormal finding of blood chemistry, unspecified; Z94.0 Kidney transplant status; Z94.83 Pancreas transplant status

== ENCOUNTER 2020-08-15 10:36 | Inpatient (IN) | payer OTHER ==
[~2020-08-15] VITALS: Ht 180.3 cm; Wt 110.3 kg
[~2020-08-15 10:36] MED LIST changes: -CITALOPRAM HYDR40 MG PO
[2020-08-15 10:51] VITALS: BP 118/64
[2020-08-15] MEDS ORDERED: SEPTDS PO (10:58)
--- NOTE | 2020-08-15 11:36 | NUR ---
[id number] : Rec'd in ED Bed 5. #22g IV RH, LAbs drawn, EKG done, CXR, NS infusing, COVID Swab done. 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 VSS:bp 165/76, HR 84, o2 sat 94, RR 22. States he's been around COVID + parents because he lives next door. LT Arm fistula.
[2020-08-15 12:19] LABS: BASO % 0.1 % (0.0-1.0); EOS % 0.1 % (1.0-4.0); HEMATOCRIT 38.3 % (42.0-52.0); LYMPH # 0.4 10*3/uL (1.3-4.4); LYMPH % 4.1 % (27.0-41.0); MEAN CELL VOLUME 86.3 fl (80.0-94.0); MEAN CORPUSCULAR HGB 26.6 pg (27.0-31.0); MEAN CORPUSCULAR HGB CONC 30.8 g/dl (33.0-37.0); MONO # 0.8 10*3/uL (0.1-1.0); MONO % 7.7 % (3.0-9.0); NEUT # 8.6 10*3/uL (2.3-7.9); NEUT % 87.7 % (47.0-73.0); PLATELET COUNT AUTOMATED 181 10*3/uL (130-400); RED BLOOD COUNT 4.44 10*6/uL (4.50-5.90); RED CELL DISTRI WIDTH 14.1 % (0-14.5); WHITE BLOOD COUNT 9.8 10*3/uL (4.8-10.8)
[2020-08-15 12:29] LABS: ACT PARTIAL THROMBO TIME 36.8 SECONDS (20.0-32.1); INTERNATIONAL NORM RATIO 0.9 (2.0-3.5)
[2020-08-15 12:36] LABS: ALBUMIN 3.2 gm/dl (3.1-4.5); ALKALINE PHOSPHATASE 82 U/L (45-117); BUN 41 mg/dl (7-24); CHLORIDE 114 mmol/L (98-107); CREATININE 2.43 mg/dL (0.70-1.30); LIPASE 204 U/L (73-393); POTASSIUM 4.9 mmol/L (3.5-5.1); SGOT/AST 30 IU/L (3-35); SGPT/ALT 27 U/L (12-78); SODIUM 139 mmol/L (136-145); TOTAL PROTEIN 6.7 gm/dL (6.4-8.2)
[2020-08-15 12:39] LABS: TROPONIN I < 0.015 ng/ml (<0.045)
[2020-08-15 13:04] VITALS: BP 166/80
--- NOTE | 2020-08-15 14:45 | NUR ---
IV NS given infused as ordered. Spoke w/ pharmacy and he attempted several times unsuccessfully to correcty it in the system. VSS. 1530: [place] x2 Tabs & Zofran 4mg IV.
[2020-08-15 15:00] VITALS: BP 151/73
--- NOTE | 2020-08-15 17:13 | NUR ---
1700: States no relief from NORCO Tabs 2 & Zofran 4mg. Taking christa w/o difficulty. Urine esnt, Throat swab sent. EKG done.
[2020-08-15 17:41] VITALS: BP 146/68
[2020-08-15 18:59] LABS: ARTERIAL BLOOD GAS PH 7.297 (7.35-7.45)
[2020-08-15 19:01] LABS: ABG BASE EXCESS -8.2 mmol/L (-2.0-2.0)
[2020-08-15 19:10] VITALS: BP 154/72
--- NOTE | 2020-08-15 19:15 | NUR ---
Report received from Yeimi Donnelly RN. Pt sitting up in bed, AAOx3, no c/o at this time. temp 98.8 oral. VSS. NAD. Pt states he hasnt slept since yesterday and is exhausted and unable to go to sleep and that is what is worrying him the most. POC explained to pt. Pt v/u. Will continue to monitor. SL IV 22g RH, no infiltration, swelling, flushes easily.
--- NOTE | 2020-08-15 19:55 | NUR ---
PT ASKS TO TAKE HOME REJECTION MEDS HE NORMALLY TAKES AT HOME AROUND 8PM. DR RIVERO INFORMED AND OK FOR PT TO TAKE. PT IS AWAITING A ROOM TO BE TRANSFERRED FOR ADMISSION.
--- NOTE | 2020-08-15 20:30 | NUR ---
REPORT GIVEN TO DULCE MARIA NGUYEN. PT PREPARED FOR TRANSFER TO ROOM 428
--- NOTE | 2020-08-15 20:45 | NUR ---
PT RECEIVED FROM [place] AT THIS TIME INTO E428. PT AAOX4, VERBALIZES SORE THROAT PAIN AND SOME MILD NAUSEA. ROOM ORIENTATION COMPLETED AND CALL LIGHT PLACED WITHIN REACH AT BEDSIDE. PERSONAL BELONGINGS SECURED AT BEDSIDE. DROPLET AND CONTACT PRECAUTIONS MAINTAINED. WILL REVIEW ORDERS AND ADMINISTER PAIN AND ANTI-EMETIC APPROPRIATE. WILL MONTIOR CLOSELY FOR ACUTE CHANGES IN CONDITION.
--- NOTE | 2020-08-15 20:45 | NUR ---
PT TRANSFERRED TO ROOM 428 VIA WC WITH MASK ON AND CARE PASSED OFF TO [facility]. RN
[2020-08-15 21:00] VITALS: BP 134/61
[2020-08-16] VITALS (7 sets, daily range): BP systolic 122–167; BP diastolic 52–72
[2020-08-16 02:22] LABS: BILIRUBIN Negative (Negative); BLOOD Negative (Negative); CLARITY Clear (Clear); COLOR Yellow (Yellow); GLUCOSE Negative (Negative); KETONE Negative (Negative); LEUKO ESTERASE 3+ (Negative); NITRITE Negative (Negative); SPECIFIC GRAVITY 1.015 (1.001-1.030); UROBILINOGEN 0.2 E.U./dl (0.0-1.0)
[2020-08-16 02:30] LABS: WBC 16-20 wbc/hpf (0-5)
[2020-08-16 06:51] LABS: HEMATOCRIT 36.9 % (42.0-52.0); LYMPH # 0.5 10*3/uL (1.3-4.4); LYMPH % 6.3 % (27.0-41.0); MEAN CELL VOLUME 87.9 fl (80.0-94.0); MEAN CORPUSCULAR HGB 26.2 pg (27.0-31.0); MEAN CORPUSCULAR HGB CONC 29.8 g/dl (33.0-37.0); MEAN PLATELET VOLUME 9.1 fl (9.6-12.3); MONO # 0.5 10*3/uL (0.1-1.0); NEUT # 6.4 10*3/uL (2.3-7.9); NEUT % 86.4 % (47.0-73.0); PLATELET COUNT AUTOMATED 160 10*3/uL (130-400); RED CELL DISTRI WIDTH 14.2 % (0-14.5); WHITE BLOOD COUNT 7.4 10*3/uL (4.8-10.8)
[2020-08-16 07:33] LABS: ALBUMIN 2.9 gm/dl (3.1-4.5); POTASSIUM 5.6 mmol/L (3.5-5.1)
[2020-08-16 07:37] LABS: CREATININE 2.69 mg/dL (0.70-1.30); TOTAL PROTEIN 6.4 gm/dL (6.4-8.2)
--- NOTE | 2020-08-16 09:00 | NUR ---
Medical Educator in to talk to patient. Patient states lives at home with alone. There are no steps in the home. Physician: janee christensen Pharmacy: [facility] services: none Patient's level of ADLs: INDEPENDENT Patient has working utilities: all working DME: none Follow-up physician's appointment after d/c: will be made by hospitalist nurse director upon discharge Does patient want to access PORTAL?: no Discharge plan discussed with patient, he lives at home, is independent in adls and ambulation, he will return home when discharged and denies any home needs, case management will follow. FATOUMATA MCDANIEL
--- NOTE | 2020-08-16 09:18 | NUR ---
CALL PLACED TO DR. VARGAS OFFICE, SPOKE WITH PAMELA ADVISED OF CONSULT, SHE VERSED SHE WILL GET MESSAGE TO DR. DEL ROSARIO
--- NOTE | 2020-08-16 09:25 | NUR ---
CALL PLACED TO DR. MOON, NOTIFIED OF CONSULT.
--- NOTE | 2020-08-16 11:13 | NUR ---
PATIENT C/O CHEST PAIN, ALSO RUNNING ELEVATED TEMPOF 100.1 MEDICATED WITH 2 TYLENOL AND NORCO
--- NOTE | 2020-08-16 12:13 | NUR ---
PATIENT REPORTS GOOD RELIEF FROM NORCO GIVEN X 1 HOUR AGO.
--- NOTE | 2020-08-16 15:16 | NUR ---
PER DR. VARGAS REQUEST CALLED AND SPOKE WITH QUITA AMEZCUA PHONE NUMBER FOR PATIENTS TRANSPLANT COORD.
--- NOTE | 2020-08-16 19:51 | NUR ---
SPOKE WITH PATIENT ADVISED THAT DR. GRANT SPOKE WITH HIS TRANSPLANT COORD, AND THEY DID NOT WANT HIM TO TAKE HIS EVEROLIMUS WHILE HE WAS FEELING SO BAD, IT MAY BE CONTRIBUTIONG TO HIS ELEVATED POTASIUM LEVEL, PATIENT VERSED UNDERSTANDING.
[2020-08-16 21:15] LABS: CREATININE 3.08 mg/dL (0.70-1.30); POTASSIUM 5.5 mmol/L (3.5-5.1)
--- NOTE | 2020-08-16 21:52 | NUR ---
PT MEDICATED WITH PRN NORCO FOR C/O "PAIN ALL OVER" RATED 6/10. WILL MONITOR FOR EFFECTIVENESS.
--- NOTE | 2020-08-16 22:40 | NUR ---
PT SLEEPING IN BED AT THIS TIME WITH NO S/S OF DISTRESS. PRN NORCO APPEARS EFFECTIVE.
[2020-08-17] VITALS: BP 143/64
--- NOTE | 2020-08-17 06:02 | NUR ---
PT MEDICATED WITH PRN NORCO FOR C/O "ALL OVER PAIN" RATED A 9/10. WILL MONITOR FOR EFFECTIVENESS.
--- NOTE | 2020-08-17 06:19 | NUR ---
DR MATUTE CALLED REGARDING PT'S PULSE OX OF 85% ON 5L HF. PT'S OXYGEN TITRATED UP TO 6L WITH A PULSE OX OF 92%. NO NEW ORDERS.
[2020-08-17 06:20] LABS: HEMATOCRIT 39.1 % (42.0-52.0); MEAN CELL VOLUME 86.1 fl (80.0-94.0); MEAN CORPUSCULAR HGB 26.2 pg (27.0-31.0); MEAN CORPUSCULAR HGB CONC 30.4 g/dl (33.0-37.0); MEAN PLATELET VOLUME 9.4 fl (9.6-12.3); PLATELET COUNT AUTOMATED 175 10*3/uL (130-400); RED BLOOD COUNT 4.54 10*6/uL (4.50-5.90); WHITE BLOOD COUNT 10.3 10*3/uL (4.8-10.8)
[2020-08-17 06:35] LABS: ALBUMIN 2.8 gm/dl (3.1-4.5); CREATININE 3.03 mg/dL (0.70-1.30); POTASSIUM 5.3 mmol/L (3.5-5.1); TOTAL PROTEIN 6.6 gm/dL (6.4-8.2)
--- NOTE | 2020-08-17 07:30 | NUR ---
PT RESTING IN BED. RESPS EASY AND NON LABORED. NO S/S OF DISTRESS NOTED. VSS EXCEPT SPO2. SPO2 NOTED TO BE 86-87% ON 6L NC. TITRATED TO 8L NC-SPO2 NOW 93-94%. RESPIRATORY NOTIFIFED. WHITE BOARD UPDATED. POC DISCUSSED W PT . A/O X3.PROD COUGH W GREEN/GARCIA SPUTUM. MINIMAL SOB. CO BODY ACHES. PT CONCERNED OVER NOT TAKING ANTIREJECTION MEDS-EXPLAINED TO HIM RATIONALE PER DR JENKINS. NSR-ST ON MONITOR. WILL CONTINUE TO MONITOR. CALL LIGHT WITHIN REACH.
[2020-08-17 07:53] LABS: BURR CELLS MODERATE; PLATELET SUFFICIENCY NORMAL (NORMAL); TOTAL CELLS COUNTED 100 #CELLS
[2020-08-17 08:00] VITALS: BP 133/70
--- NOTE | 2020-08-17 10:51 | NUR ---
ATTEMPTING TO REACH PTS MOTHER, PHONE RINING BUSY.
--- NOTE | 2020-08-17 12:46 | NUR ---
PT AMBULATING IN ROOM, SPO2 81%, ENCOURGED DEEP BREATHS, SPO2 >93% AT THIS TIME. WILL CONTINUE TO MONITOR. 8L NC INTACT. AWAITING TRANSFER TO ICCU.
[2020-08-17 14:00] VITALS: BP 139/66
--- NOTE | 2020-08-17 14:00 | NUR ---
PT TRANSFERED TO ICCU 6 AT THIS TIME. VSS.
--- NOTE | 2020-08-17 14:00 | NUR ---
PT TRANSFERRED TO ICCU BED 6. PARENTS NOTIFIED.
[2020-08-17 16:24] LABS: ARTERIAL BLOOD GAS PH 7.358 (7.35-7.45)
--- NOTE | 2020-08-17 16:35 | NUR ---
CALLED GREG WITH ABG RESULTS AND LEFT A VOICEMAIL. RN AWARE.
--- NOTE | 2020-08-17 19:03 | NUR ---
RAZ PONCE PLACE ART LINE TO RIGHT RADIAL ARTERY.
[2020-08-17 20:00] VITALS: BP 203/77
--- NOTE | 2020-08-17 20:10 | NUR ---
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 RESP IN ROOM TO PLACE NOSE PIECE ON FACE AND I OFFERED HIM A BLANKET HE SAID HE WILL TRY BUT HE KNOWS HE WILL GET PNEUMONIA. PATIENT ALSO REFUSED TO TAKE REJECTION MEDS FROM PHARMACY AND SAID THAT HIS TRANSPLANT DOCTOR SIAD NOT TO TAKE THE OFF NAME BRAND THAT HE MUST TAKE NAME BRAND. HE HAD HHIS OWN IN BAG AND TOOK THEM.
--- NOTE | 2020-08-17 20:30 | NUR ---
DOCTOR MATUTE INFORMED OF PATIENT CURRENT BP BP MEDS GIVEN EARLY.
--- NOTE | 2020-08-17 21:45 | NUR ---
CALLED DOCTOR GIOVANI PATIENT BP 168/69 CURRENTLY NO NEW ORDERS AT THIS TIME. PATIENT IS ON BIPAP AND IS CURRENTLY LYING IN BED WITH EYES CLOSED.
--- NOTE | 2020-08-17 23:44 | NUR ---
PATIENT WANTED OFF THE BIPAP SAID HE COULKD NOT WEAR IT MUCH LONGER. RESPIRATORY DID MENTION TO HIM ABOUT PRONEING HIMSELF HE ACKNOWLEDGED THAT HE WAS AWARE BUT DID NOT SAY IF HE WAS GOING TO DO IT. PATIENT IS CURRENTLY ON 6LITERS AND 94%O2.
[2020-08-18] VITALS: BP 175/73
[2020-08-18] MEDS ORDERED: CITALOPRAM HYDR40 MG PO (02:26)
[2020-08-18 04:00] VITALS: BP 159/72
[2020-08-18 06:26] LABS: HEMATOCRIT 34.7 % (42.0-52.0); MEAN CORPUSCULAR HGB 26.5 pg (27.0-31.0); MEAN CORPUSCULAR HGB CONC 31.7 g/dl (33.0-37.0); MEAN PLATELET VOLUME 9.7 fl (9.6-12.3); PLATELET COUNT AUTOMATED 172 10*3/uL (130-400); RED BLOOD COUNT 4.15 10*6/uL (4.50-5.90); RED CELL DISTRI WIDTH 13.9 % (0-14.5); WHITE BLOOD COUNT 11.2 10*3/uL (4.8-10.8)
[2020-08-18 06:28] LABS: MEAN CELL VOLUME 83.6 fl (80.0-94.0)
[2020-08-18 06:41] LABS: ALBUMIN 2.6 gm/dl (3.1-4.5); CREATININE 3.84 mg/dL (0.70-1.30); POTASSIUM 4.8 mmol/L (3.5-5.1); TOTAL PROTEIN 6.2 gm/dL (6.4-8.2)
[2020-08-18 07:10] LABS: PLATELET SUFFICIENCY NORMAL (NORMAL); TOTAL CELLS COUNTED 100 #CELLS
[2020-08-18 07:11] LABS: BURR CELLS FEW
--- NOTE | 2020-08-18 07:50 | NUR ---
MEDICATED WITH ZOFRAN 4MG IV FOR COMPLAINTS OF NAUSEA.
[2020-08-18 08:00] VITALS: BP 153/56
--- NOTE | 2020-08-18 08:30 | NUR ---
STILL COMPLAINS OF NAUSEA. ZOFRAN NOT EFFECTIVE
[2020-08-18 08:41] LABS: ARTERIAL BLOOD GAS PH 7.311 (7.35-7.45)
[2020-08-18 08:42] LABS: ABG BASE EXCESS -11.5 mmol/L (-2.0-2.0)
--- NOTE | 2020-08-18 09:54 | NUR ---
SPOKE WITH MOTHER. NOTIFIED THAT HE WILL BE INTUBATED
--- NOTE | 2020-08-18 10:45 | NUR ---
DR. GARZA HERE TO SEE PATIENT. HE WANTS PATIENT TO BE INTUBATED. MOTHER NOTIFIED AND SHE AND PATIENT HAVE AGGREED. 1100-NYDIA RIVAS HERE TO INTUBATE. INTUBATED WITH A # 8 ENDOTUBE AT 23 LIP. TV 450, CMV 22, PEEP 15 AND FIO2 100%. [place] PLACED. OGT PLACED.
[2020-08-18 12:00] VITALS: BP 133/71
[2020-08-18 13:44] LABS: ARTERIAL BLOOD GAS PH 7.316 (7.35-7.45)
[2020-08-18 13:45] LABS: ABG BASE EXCESS -9.7 mmol/L (-2.0-2.0)
[2020-08-18 14:48] LABS: BILIRUBIN Negative (Negative); BLOOD 3+ (Negative); CLARITY Cloudy (Clear); COLOR Yellow (Yellow); GLUCOSE Negative (Negative); KETONE Negative (Negative); LEUKO ESTERASE 3+ (Negative); NITRITE Negative (Negative); PH 7.5 (4.5-8.0); SPECIFIC GRAVITY 1.015 (1.001-1.030); UROBILINOGEN 0.2 E.U./dl (0.0-1.0)
[2020-08-18 15:12] LABS: BACTERIA 2+; MUCOUS 1+; RBC TNTC rbc/hpf (0-2); WBC TNTC wbc/hpf (0-5)
--- NOTE | 2020-08-18 15:30 | NUR ---
PRONED. TOLERATED WELL.
--- NOTE | 2020-08-18 15:35 | NUR ---
PT PRONED WITHOUT INCIDENT. HEAD FACING THE LEFT. ETT TUBE SECURE. BBSs EQUAL AND DIMINISHED. VENT CHECKED AND FX'ING.
[2020-08-18 16:00] VITALS: BP 140/59
[2020-08-18 17:37] LABS: ABG BASE EXCESS -8.5 mmol/L (-2.0-2.0); ARTERIAL BLOOD GAS PH 7.284 (7.35-7.45)
[2020-08-18 20:00] VITALS: BP 139/61
--- NOTE | 2020-08-18 20:00 | NUR ---
PATIENT TEMP READING AT 94.8 TO 95.0 VIA RECTAL PROBE. PROBE REMOVED AND REPLACED, NO CHANGE IN TEMP NOTED. PATIENT PLACED ON BEAR HUGGER AT THIS TIME.
--- NOTE | 2020-08-18 22:15 | NUR ---
SPOKE WITH PHARMACIST EDWARDO AT [facility] REGARDING REJECTION MED CYCLOSPORIN BEING A MODIFIED CAPSULE. PHARMACIST RECOMMENDS NOT OPENING CAPSULES AND DILUTING FOR EVENING DOSE. PHARMACIST RECOMMENDS SKIPPING EVENING DOSE AND PHARMACY WILL CHANGE TO MEDICATION TO A FORM FOR OG ADMINISTRATION IN THE MORNING.
[2020-08-18 22:54] LABS: ABG BASE EXCESS -7.2 mmol/L (-2.0-2.0); ARTERIAL BLOOD GAS PH 7.33 (7.35-7.45)
[2020-08-19] VITALS (10 sets, daily range): BP systolic 116–158; BP diastolic 47–66
[2020-08-19 06:05] LABS: ALBUMIN 2.3 gm/dl (3.1-4.5); CREATININE 3.96 mg/dL (0.70-1.30); HEMATOCRIT 31.9 % (42.0-52.0); MEAN CELL VOLUME 80.8 fl (80.0-94.0); MEAN CORPUSCULAR HGB 27.1 pg (27.0-31.0); MEAN CORPUSCULAR HGB CONC 33.5 g/dl (33.0-37.0); MEAN PLATELET VOLUME 9.4 fl (9.6-12.3); NUCLEATED RED BLOOD CELL 0.3 % (0.0-0.0); PLATELET COUNT AUTOMATED 175 10*3/uL (130-400); RED BLOOD COUNT 3.95 10*6/uL (4.50-5.90); RED CELL DISTRI WIDTH 13.4 % (0-14.5); TOTAL PROTEIN 6.1 gm/dL (6.4-8.2); WHITE BLOOD COUNT 10.8 10*3/uL (4.8-10.8)
[2020-08-19 06:17] LABS: POTASSIUM 4.2 mmol/L (3.5-5.1)
--- NOTE | 2020-08-19 06:22 | NUR ---
DR. MATUTE NOTIFIED OF MORNING LAB RESULT REGARDING CALCIUM LEVEL, BUN, CREATININE AND PHOSPHORUS CHANGES. NO NEW ORDERS AT THIS TIME.
[2020-08-19 07:03] LABS: TOTAL CELLS COUNTED 100 #CELLS
[2020-08-19 07:07] LABS: BURR CELLS MODERATE; PLATELET SUFFICIENCY NORMAL (NORMAL)
[2020-08-19 07:08] LABS: ROULEAUX SLIGHT
--- NOTE | 2020-08-19 07:35 | NUR ---
PT UNPRONED WITHOUT INCIDENT. ETT SECURE.
[2020-08-19 07:43] LABS: ABG BASE EXCESS -4.7 mmol/L (-2.0-2.0); ARTERIAL BLOOD GAS PH 7.318 (7.35-7.45)
[2020-08-19 11:05] LABS: ABG BASE EXCESS -4.5 mmol/L (-2.0-2.0); ARTERIAL BLOOD GAS PH 7.326 (7.35-7.45)
--- NOTE | 2020-08-19 11:50 | NUR ---
FIO2 ON VENT DECREASED TO 50% PER DR GARZA.
--- NOTE | 2020-08-19 14:37 | NUR ---
Dr. Navarrete notified that patient needs transfer to hospital that did transplants, per Dr. Mims.
--- NOTE | 2020-08-19 16:08 | NUR ---
Patient will not be proned at this time, due to patient being transfered to [facility]. Room 440E, Dr. Gallagher accepting physician.
--- NOTE | 2020-08-19 18:45 | NUR ---
Report called to [facility].
--- NOTE | 2020-08-19 19:16 | NUR ---
Patient left via [facility] for transfer to [facility]. Belongings in ICU, mom made aware to waste picker.
== END 2020-08-19 19:16 | disposition short-term general hospital (02) | DRG 720 ==
LOC: ED 10:36 → ICCU 17:46 → EDHOLD 17:46 → 4E 17:46 → ICCU 08-17 10:55
PROVIDERS: Emergency Medicine; Internal Medicine; Internal Medicine Critical Care Medicine; ADMIT Internal Medicine; ATTEND Internal Medicine
PROC: XW033E5 Introduction of Remdesivir Anti-infective into Peripheral Vein, Percutaneous Approach, New Technology Group 5 (ICD-10-PCS; principal; 2020-08-16)
PROC: 5A09357 Assistance with Respiratory Ventilation, Less than 24 Consecutive Hours, Continuous Positive Airway Pressure (ICD-10-PCS; 2020-08-17)
PROC: 03HY32Z Insertion of Monitoring Device into Upper Artery, Percutaneous Approach (ICD-10-PCS; 2020-08-17)
PROC: 4A133B1 Monitoring of Arterial Pressure, Peripheral, Percutaneous Approach (ICD-10-PCS; 2020-08-17)
PROC: 4A133J1 Monitoring of Arterial Pulse, Peripheral, Percutaneous Approach (ICD-10-PCS; 2020-08-17)
PROC: 0BH17EZ Insertion of Endotracheal Airway into Trachea, Via Natural or Artificial Opening (ICD-10-PCS; 2020-08-18)
PROC: 5A1935Z Respiratory Ventilation, Less than 24 Consecutive Hours (ICD-10-PCS; 2020-08-18)
PROC: 5A09357 Assistance with Respiratory Ventilation, Less than 24 Consecutive Hours, Continuous Positive Airway Pressure (ICD-10-PCS; 2020-08-18)
PROC: 02HV33Z Insertion of Infusion Device into Superior Vena Cava, Percutaneous Approach (ICD-10-PCS; 2020-08-18)
PROC: B548ZZA Ultrasonography of Superior Vena Cava, Guidance (ICD-10-PCS; 2020-08-18)
DX: A41.9 Sepsis, unspecified organism (principal); U07.1 COVID-19; J12.89 Other viral pneumonia; N17.0 Acute kidney failure with tubular necrosis; E87.8 Other disorders of electrolyte and fluid balance, not elsewhere classified; R79.82 Elevated C-reactive protein (CRP); I25.10 Atherosclerotic heart disease of native coronary artery without angina pectoris; D84.9 Immunodeficiency, unspecified; I12.9 Hypertensive chronic kidney disease with stage 1 through stage 4 chronic kidney disease, or unspecified chronic kidney disease; N18.32 Chronic kidney disease, stage 3b; D64.9 Anemia, unspecified; E03.9 Hypothyroidism, unspecified; R65.20 Severe sepsis without septic shock; E87.5 Hyperkalemia; E87.2 Acidosis; R82.81 Pyuria; Z79.899 Other long term (current) drug therapy; Z79.82 Long term (current) use of aspirin; Z95.5 Presence of coronary angioplasty implant and graft; Z94.0 Kidney transplant status; Z94.83 Pancreas transplant status; I25.2 Old myocardial infarction; Z83.3 Family history of diabetes mellitus; Z82.49 Family history of ischemic heart disease and other diseases of the circulatory system; J96.01 Acute respiratory failure with hypoxia

== ENCOUNTER 2020-09-09 16:24 | Emergency (ER) | payer OTHER ==
[~2020-09-09] VITALS: Ht 180.3 cm; Wt 63.5 kg
[~2020-09-09 16:24] MED LIST changes: +CITALOPRAM HYDR40 MG PO
[2020-09-09 17:10] LABS: BASO % 0.1 % (0.0-1.0); EOS # 0.4 10*3/uL (0.0-0.4); EOS % 2.7 % (1.0-4.0); HEMATOCRIT 27.6 % (42.0-52.0); LYMPH # 0.8 10*3/uL (1.3-4.4); LYMPH % 5.6 % (27.0-41.0); MEAN CORPUSCULAR HGB 27.3 pg (27.0-31.0); MEAN CORPUSCULAR HGB CONC 29.7 g/dl (33.0-37.0); MEAN PLATELET VOLUME 9.4 fl (9.6-12.3); MONO % 7.2 % (3.0-9.0); NEUT # 11.5 10*3/uL (2.3-7.9); NEUT % 83.1 % (47.0-73.0); PLATELET COUNT AUTOMATED 338 10*3/uL (130-400); RED CELL DISTRI WIDTH 15.9 % (0-14.5); WHITE BLOOD COUNT 13.8 10*3/uL (4.8-10.8)
[2020-09-09 17:26] LABS: ALBUMIN 2.1 gm/dl (3.1-4.5); CREATININE 2.13 mg/dL (0.70-1.30); POTASSIUM 4.8 mmol/L (3.5-5.1); TOTAL PROTEIN 5.8 gm/dL (6.4-8.2)
[2020-09-09 17:30] LABS: TROPONIN I 28.6 ng/ml (<0.045)
[2020-09-09 17:37] LABS: ACT PARTIAL THROMBO TIME 32.5 SECONDS (20.0-32.1)
[2020-09-09 18:00] LABS: BILIRUBIN Negative (Negative); BLOOD Negative (Negative); CLARITY Cloudy (Clear); COLOR Yellow (Yellow); GLUCOSE Negative (Negative); KETONE Negative (Negative); LEUKO ESTERASE 3+ (Negative); NITRITE Negative (Negative); PH 7.5 (4.5-8.0)
[2020-09-09 18:10] LABS: BACTERIA 2+
[2020-09-09 18:11] LABS: MUCOUS 2+
[2020-09-09 20:12] VITALS: BP 118/64
== END 2020-09-09 21:08 | disposition short-term general hospital (02) ==
LOC: ED 16:24
PROVIDERS: Emergency Medicine
DX: I21.4 Non-ST elevation (NSTEMI) myocardial infarction (principal); Z79.899 Other long term (current) drug therapy; Z79.82 Long term (current) use of aspirin

== ENCOUNTER → 2020-11-10 | Outpatient (CLI) | payer OTHER ==
[2020-11-10 10:41] LABS: BASO % 0.1 % (0.0-1.0); EOS # 0.1 10*3/uL (0.0-0.4); EOS % 1.4 % (1.0-4.0); HEMATOCRIT 32.9 % (42.0-52.0); LYMPH % 12.8 % (27.0-41.0); MEAN CELL VOLUME 89.4 fl (80.0-94.0); MEAN CORPUSCULAR HGB 27.4 pg (27.0-31.0); MEAN CORPUSCULAR HGB CONC 30.7 g/dl (33.0-37.0); MEAN PLATELET VOLUME 9.4 fl (9.6-12.3); MONO # 0.5 10*3/uL (0.1-1.0); NEUT # 6.1 10*3/uL (2.3-7.9); NEUT % 78.6 % (47.0-73.0); PLATELET COUNT AUTOMATED 255 10*3/uL (130-400); RED BLOOD COUNT 3.68 10*6/uL (4.50-5.90); WHITE BLOOD COUNT 7.7 10*3/uL (4.8-10.8)
[2020-11-10 10:56] LABS: BILIRUBIN, DIRECT 0.2 mg/dL (0.0-0.2)
[2020-11-10 10:59] LABS: ALBUMIN 3.5 gm/dl (3.1-4.5); CREATININE 2.77 mg/dL (0.70-1.30); POTASSIUM 4.4 mmol/L (3.5-5.1); TOTAL PROTEIN 6.5 gm/dL (6.4-8.2)
[2020-11-11 04:06] LABS: LDL CHOLESTEROL (DIRECT) 100 mg/dL (0-99)
[2020-11-11 15:08] LABS: CYCLOSPORINE, BLOOD 770 ng/mL (100-400)
== END | disposition home or self-care (01) ==
LOC: LAB 09:49
PROVIDERS: ATTEND Internal Medicine Nephrology
DX: E78.2 Mixed hyperlipidemia (principal); I25.5 Ischemic cardiomyopathy; I50.22 Chronic systolic (congestive) heart failure; D89.9 Disorder involving the immune mechanism, unspecified; Z94.0 Kidney transplant status; Z79.899 Other long term (current) drug therapy; Z94.83 Pancreas transplant status

== ENCOUNTER → 2020-12-21 | Outpatient (CLI) | payer OTHER ==
[2020-12-21 10:27] LABS: BASO % 0.3 % (0.0-1.0); EOS # 0.2 10*3/uL (0.0-0.4); EOS % 2.4 % (1.0-4.0); LYMPH # 0.9 10*3/uL (1.3-4.4); LYMPH % 12.5 % (27.0-41.0); MEAN CORPUSCULAR HGB 26.5 pg (27.0-31.0); MEAN CORPUSCULAR HGB CONC 29.5 g/dl (33.0-37.0); MEAN PLATELET VOLUME 9.1 fl (9.6-12.3); MONO # 0.6 10*3/uL (0.1-1.0); MONO % 8.7 % (3.0-9.0); NEUT # 5.5 10*3/uL (2.3-7.9); NEUT % 75.8 % (47.0-73.0); PLATELET COUNT AUTOMATED 230 10*3/uL (130-400); RED BLOOD COUNT 4.22 10*6/uL (4.50-5.90); RED CELL DISTRI WIDTH 14.6 % (0-14.5); WHITE BLOOD COUNT 7.2 10*3/uL (4.8-10.8)
[2020-12-21 10:57] LABS: ALBUMIN 3.4 gm/dl (3.1-4.5); ALKALINE PHOSPHATASE 63 U/L (45-117); BILIRUBIN, DIRECT < 0.1 mg/dL (0.0-0.2); BUN 38 mg/dl (7-24); CHLORIDE 116 mmol/L (98-107); GAMMA GLUTAMYL TRANSPEPTIDASE 8 U/L (15-85); POTASSIUM 5.1 mmol/L (3.5-5.1); SGOT/AST 11 IU/L (3-35); SGPT/ALT 26 U/L (12-78); SODIUM 143 mmol/L (136-145); TOTAL PROTEIN 6.5 gm/dL (6.4-8.2)
[2020-12-22 13:07] LABS: CYCLOSPORINE, BLOOD 288 ng/mL (100-400)
== END | disposition home or self-care (01) ==
LOC: LAB 09:53
PROVIDERS: ATTEND Internal Medicine Nephrology
DX: D89.9 Disorder involving the immune mechanism, unspecified (principal); Z94.0 Kidney transplant status; Z94.83 Pancreas transplant status; Z79.899 Other long term (current) drug therapy

== ENCOUNTER → 2021-01-04 | Outpatient (CLI) | payer OTHER ==
[2021-01-04 10:26] LABS: SGOT/AST 13 IU/L (3-35); SGPT/ALT 25 U/L (12-78)
[2021-01-04 10:29] LABS: CHOLESTEROL 227 mg/dL (<200); HDL CHOLESTEROL 53 mg/dl (40-60); LDL CHOLESTEROL 131 mg/dL (9-159); VLDL CHOLESTEROL 43 mg/dL (6-40)
== END | disposition home or self-care (01) ==
LOC: LAB 09:17
PROVIDERS: ATTEND Internal Medicine Cardiovascular Disease
DX: E78.2 Mixed hyperlipidemia (principal)

== ENCOUNTER → 2021-04-05 | Outpatient (CLI) | payer OTHER ==
[2021-04-05 10:03] LABS: BASO % 0.1 % (0.0-1.0); EOS # 0.1 10*3/uL (0.0-0.4); EOS % 1.6 % (1.0-4.0); HEMATOCRIT 37.1 % (42.0-52.0); LYMPH % 12.7 % (27.0-41.0); MEAN CORPUSCULAR HGB 26.9 pg (27.0-31.0); MEAN CORPUSCULAR HGB CONC 29.9 g/dl (33.0-37.0); MEAN PLATELET VOLUME 9.1 fl (9.6-12.3); MONO # 0.8 10*3/uL (0.1-1.0); MONO % 10.1 % (3.0-9.0); NEUT # 5.8 10*3/uL (2.3-7.9); NEUT % 75.1 % (47.0-73.0); PLATELET COUNT AUTOMATED 196 10*3/uL (130-400); RED BLOOD COUNT 4.12 10*6/uL (4.50-5.90); RED CELL DISTRI WIDTH 14.8 % (0-14.5); WHITE BLOOD COUNT 7.7 10*3/uL (4.8-10.8)
[2021-04-05 10:15] LABS: URINE CREATININE RANDOM 64.6 mg/dL
[2021-04-05 10:32] LABS: ALBUMIN 3.5 gm/dl (3.1-4.5); CREATININE 2.29 mg/dL (0.70-1.30); POTASSIUM 4.5 mmol/L (3.5-5.1); TOTAL PROTEIN 6.4 gm/dL (6.4-8.2)
[2021-04-05 11:05] LABS: FERRITIN 433.6 ng/mL (22.0-322.0)
[2021-04-05 11:06] LABS: PTH INTACT 83.6 pg/mL (18.5-88.0)
[2021-04-06 13:06] LABS: CYCLOSPORINE, BLOOD 315 ng/mL (100-400)
== END | disposition home or self-care (01) ==
LOC: LAB 09:20
PROVIDERS: ATTEND Internal Medicine Nephrology
DX: D89.9 Disorder involving the immune mechanism, unspecified (principal); Z79.899 Other long term (current) drug therapy; Z94.0 Kidney transplant status; Z94.83 Pancreas transplant status

== ENCOUNTER → 2021-11-20 | Outpatient (CLI) | payer OTHER ==
[2021-11-20 10:24] LABS: BASO % 0.1 % (0.0-1.0); EOS # 0.1 10*3/uL (0.0-0.4); EOS % 1.3 % (1.0-4.0); HEMATOCRIT 37.3 % (42.0-52.0); LYMPH # 0.8 10*3/uL (1.3-4.4); LYMPH % 9.7 % (27.0-41.0); MEAN CORPUSCULAR HGB 27.3 pg (27.0-31.0); MEAN PLATELET VOLUME 9.4 fl (9.6-12.3); MONO # 0.8 10*3/uL (0.1-1.0); MONO % 8.8 % (3.0-9.0); NEUT # 6.9 10*3/uL (2.3-7.9); NEUT % 79.6 % (47.0-73.0); PLATELET COUNT AUTOMATED 203 10*3/uL (130-400); RED CELL DISTRI WIDTH 13.9 % (0-14.5); WHITE BLOOD COUNT 8.7 10*3/uL (4.8-10.8)
[2021-11-20 10:43] LABS: ALKALINE PHOSPHATASE 66 U/L (45-117); BUN 65 mg/dl (7-24); CHLORIDE 117 mmol/L (98-107); CHOLESTEROL 182 mg/dL (<200); CREATININE 2.76 mg/dL (0.70-1.30); LDL CHOLESTEROL 94 mg/dL (9-159); POTASSIUM 5.4 mmol/L (3.5-5.1); SGOT/AST 17 IU/L (3-35); SGPT/ALT 28 U/L (12-78); SODIUM 143 mmol/L (136-145); TOTAL PROTEIN 6.5 gm/dL (6.4-8.2); TRIGLYCERIDES 184 mg/dl (<150)
[2021-11-21 14:09] LABS: CYCLOSPORINE, BLOOD 378 ng/mL (100-400)
== END | disposition home or self-care (01) ==
LOC: LAB 09:42
PROVIDERS: ATTEND Emergency Medicine
DX: T86.19 Other complication of kidney transplant (principal); E78.2 Mixed hyperlipidemia

== ENCOUNTER → 2022-02-02 | Outpatient (CLI) | payer OTHER ==
[2022-02-02 10:16] LABS: BASO % 0.1 % (0.0-1.0); EOS # 0.1 10*3/uL (0.0-0.4); EOS % 1.5 % (1.0-4.0); LYMPH # 0.9 10*3/uL (1.3-4.4); LYMPH % 12.7 % (27.0-41.0); MEAN CELL VOLUME 87.3 fl (80.0-94.0); MEAN CORPUSCULAR HGB CONC 30.9 g/dl (33.0-37.0); MEAN PLATELET VOLUME 9.2 fl (9.6-12.3); MONO # 0.8 10*3/uL (0.1-1.0); MONO % 11.7 % (3.0-9.0); NEUT % 73.7 % (47.0-73.0); PLATELET COUNT AUTOMATED 221 10*3/uL (130-400); RED BLOOD COUNT 3.78 10*6/uL (4.50-5.90); RED CELL DISTRI WIDTH 12.9 % (0-14.5); WHITE BLOOD COUNT 6.8 10*3/uL (4.8-10.8)
[2022-02-02 10:34] LABS: URINE CREATININE RANDOM 53.9 mg/dL
[2022-02-02 10:44] LABS: CREATININE 3.38 mg/dL (0.70-1.30); POTASSIUM 4.8 mmol/L (3.5-5.1); TOTAL PROTEIN 6.3 gm/dL (6.4-8.2); URIC ACID 7.6 mg/dL (3.5-7.2)
[2022-02-02 11:12] LABS: FERRITIN 446.7 ng/mL (22.0-322.0)
[2022-02-05 14:08] LABS: CYCLOSPORINE, BLOOD 410 ng/mL (100-400)
[2022-02-06 08:07] LABS: BK QUANTITATION PCR Negative (Negative)
== END | disposition home or self-care (01) ==
LOC: LAB 09:41
PROVIDERS: ATTEND Internal Medicine Nephrology
DX: Z48.298 Encounter for aftercare following other organ transplant (principal); Z79.899 Other long term (current) drug therapy; R79.9 Abnormal finding of blood chemistry, unspecified; D84.9 Immunodeficiency, unspecified; R68.89 Other general symptoms and signs; Z94.0 Kidney transplant status

== ENCOUNTER → 2022-02-14 | Outpatient (CLI) | payer OTHER ==
[2022-02-14 10:01] LABS: BASO % 0.1 % (0.0-1.0); EOS # 0.1 10*3/uL (0.0-0.4); EOS % 1.3 % (1.0-4.0); LYMPH # 0.8 10*3/uL (1.3-4.4); LYMPH % 8.8 % (27.0-41.0); MEAN CORPUSCULAR HGB 26.9 pg (27.0-31.0); MEAN CORPUSCULAR HGB CONC 30.9 g/dl (33.0-37.0); MONO # 0.9 10*3/uL (0.1-1.0); MONO % 9.8 % (3.0-9.0); NEUT # 7.3 10*3/uL (2.3-7.9); NEUT % 79.7 % (47.0-73.0); PLATELET COUNT AUTOMATED 233 10*3/uL (130-400); RED BLOOD COUNT 3.68 10*6/uL (4.50-5.90); RED CELL DISTRI WIDTH 13.4 % (0-14.5); WHITE BLOOD COUNT 9.1 10*3/uL (4.8-10.8)
[2022-02-14 10:25] LABS: CREATININE 3.2 mg/dL (0.70-1.30); POTASSIUM 5.4 mmol/L (3.5-5.1)
[2022-02-15 15:07] LABS: CYCLOSPORINE, BLOOD 394 ng/mL (100-400)
== END | disposition home or self-care (01) ==
LOC: LAB 09:41
PROVIDERS: ATTEND Internal Medicine Nephrology
DX: Z48.298 Encounter for aftercare following other organ transplant (principal); D84.9 Immunodeficiency, unspecified; R68.89 Other general symptoms and signs; R79.9 Abnormal finding of blood chemistry, unspecified; Z94.0 Kidney transplant status; Z79.899 Other long term (current) drug therapy

== ENCOUNTER → 2022-02-16 | Outpatient (CLI) | payer OTHER ==
[2022-02-16 10:45] LABS: CREATININE 3.55 mg/dL (0.70-1.30); POTASSIUM 5.6 mmol/L (3.5-5.1)
[2022-02-19 12:06] LABS: CYCLOSPORINE, BLOOD 309 ng/mL (100-400)
[2022-02-21 10:08] LABS: BK QUANTITATION PCR Negative (Negative)
== END | disposition home or self-care (01) ==
LOC: LAB 09:55
PROVIDERS: ATTEND Internal Medicine Nephrology
DX: D84.9 Immunodeficiency, unspecified (principal); R79.9 Abnormal finding of blood chemistry, unspecified; Z94.0 Kidney transplant status; Z79.899 Other long term (current) drug therapy; Z94.83 Pancreas transplant status; Z48.298 Encounter for aftercare following other organ transplant

== ENCOUNTER → 2022-03-27 | Outpatient (CLI) | payer OTHER ==
[2022-03-27 10:43] LABS: BASO % 0.3 % (0.0-1.0); EOS # 0.1 10*3/uL (0.0-0.4); HEMATOCRIT 34.3 % (42.0-52.0); LYMPH # 0.9 10*3/uL (1.3-4.4); LYMPH % 11.9 % (27.0-41.0); MEAN CORPUSCULAR HGB 27.9 pg (27.0-31.0); MEAN CORPUSCULAR HGB CONC 29.7 g/dl (33.0-37.0); MEAN PLATELET VOLUME 8.6 fl (9.6-12.3); MONO # 0.6 10*3/uL (0.1-1.0); MONO % 7.9 % (3.0-9.0); NEUT % 78.4 % (47.0-73.0); PLATELET COUNT AUTOMATED 245 10*3/uL (130-400); RED BLOOD COUNT 3.65 10*6/uL (4.50-5.90); RED CELL DISTRI WIDTH 14.7 % (0-14.5); WHITE BLOOD COUNT 7.7 10*3/uL (4.8-10.8)
[2022-03-27 11:32] LABS: FERRITIN 419.9 ng/mL (22.0-322.0)
[2022-03-27 12:14] LABS: POTASSIUM 4.4 mmol/L (3.5-5.1)
[2022-03-27 12:30] LABS: CREATININE 2.29 mg/dL (0.70-1.30); TOTAL PROTEIN 6.1 gm/dL (6.4-8.2); URIC ACID 7.5 mg/dL (3.5-7.2)
[2022-03-28 12:07] LABS: CYCLOSPORINE, BLOOD <25 ng/mL (100-400)
[2022-03-29 13:07] LABS: BK QUANTITATION PCR Negative (Negative)
== END | disposition home or self-care (01) ==
LOC: LAB 10:07
PROVIDERS: ATTEND Internal Medicine Nephrology
DX: Z48.298 Encounter for aftercare following other organ transplant (principal); R79.9 Abnormal finding of blood chemistry, unspecified; D84.9 Immunodeficiency, unspecified; R68.89 Other general symptoms and signs; Z79.899 Other long term (current) drug therapy; Z94.0 Kidney transplant status

== ENCOUNTER → 2022-04-20 | Outpatient (CLI) | payer OTHER | END | disposition home or self-care (01) | LOC: RAD 10:07 | PROVIDERS: ATTEND Podiatrist Foot & Ankle Surgery | DX: M19.072 Primary osteoarthritis, left ankle and foot (principal); M47.812 Spondylosis without myelopathy or radiculopathy, cervical region; M77.32 Calcaneal spur, left foot; M14.672 Charcot's joint, left ankle and foot ==

== ENCOUNTER 2022-08-24 09:57 | Emergency (ER) | payer OTHER ==
[~2022-08-24] VITALS: Ht 180.3 cm; Wt 77.1 kg
[2022-08-24 10:35] LABS: BASO % 0.1 % (0.0-1.0); EOS # 0.1 10*3/uL (0.0-0.4); EOS % 0.7 % (1.0-4.0); HEMATOCRIT 30.2 % (42.0-52.0); LYMPH # 0.8 10*3/uL (1.3-4.4); LYMPH % 6.6 % (27.0-41.0); MEAN CELL VOLUME 93.5 fl (80.0-94.0); MEAN CORPUSCULAR HGB 27.2 pg (27.0-31.0); MEAN CORPUSCULAR HGB CONC 29.1 g/dl (33.0-37.0); MEAN PLATELET VOLUME 8.8 fl (9.6-12.3); MONO # 1.1 10*3/uL (0.1-1.0); MONO % 9.3 % (3.0-9.0); PLATELET COUNT AUTOMATED 214 10*3/uL (130-400); RED BLOOD COUNT 3.23 10*6/uL (4.50-5.90); RED CELL DISTRI WIDTH 14.6 % (0-14.5)
[2022-08-24 10:45] LABS: BILIRUBIN Negative (Negative); BLOOD Trace-Lysed (Negative); CLARITY Clear (Clear); COLOR Yellow (Yellow); GLUCOSE Negative (Negative); KETONE Negative (Negative); LEUKO ESTERASE 3+ (Negative); NITRITE Negative (Negative); UROBILINOGEN 0.2 E.U./dl (0.0-1.0)
[2022-08-24 11:16] LABS: BACTERIA 1+; MUCOUS 1+; RBC 0-2 rbc/hpf (0-2)
[2022-08-24 11:19] LABS: CREATININE 4.95 mg/dL (0.70-1.30); POTASSIUM 4.9 mmol/L (3.4-5.1); TOTAL PROTEIN 5.7 gm/dL (6.0-8.0)
[2022-08-24 17:06] VITALS: BP 150/72
== END 2022-08-24 17:36 | disposition short-term general hospital (02) ==
LOC: ED 09:57
PROVIDERS: Emergency Medicine
DX: R33.9 Retention of urine, unspecified (principal); L02.211 Cutaneous abscess of abdominal wall; N17.9 Acute kidney failure, unspecified; E87.20 Acidosis, unspecified; I25.2 Old myocardial infarction; I10 Essential (primary) hypertension; Z88.8 Allergy status to other drugs, medicaments and biological substances; Z79.82 Long term (current) use of aspirin; Z79.899 Other long term (current) drug therapy; Z98.890 Other specified postprocedural states

== ENCOUNTER → 2022-09-26 | Outpatient (CLI) | payer OTHER ==
[2022-09-26 09:25] LABS: BASO % 0.2 % (0.0-1.0); EOS # 0.1 10*3/uL (0.0-0.4); EOS % 0.8 % (1.0-4.0); HEMATOCRIT 31.9 % (42.0-52.0); LYMPH # 0.7 10*3/uL (1.3-4.4); LYMPH % 11.8 % (27.0-41.0); MEAN CELL VOLUME 91.9 fl (80.0-94.0); MEAN CORPUSCULAR HGB 27.1 pg (27.0-31.0); MEAN CORPUSCULAR HGB CONC 29.5 g/dl (33.0-37.0); MONO # 0.7 10*3/uL (0.1-1.0); MONO % 10.7 % (3.0-9.0); NEUT # 4.8 10*3/uL (2.3-7.9); NEUT % 76.2 % (47.0-73.0); PLATELET COUNT AUTOMATED 224 10*3/uL (130-400); RED BLOOD COUNT 3.47 10*6/uL (4.50-5.90); RED CELL DISTRI WIDTH 14.7 % (0-14.5); WHITE BLOOD COUNT 6.3 10*3/uL (4.8-10.8)
[2022-09-26 09:27] LABS: BILIRUBIN Negative (Negative); BLOOD Negative (Negative); CLARITY Cloudy (Clear); COLOR Yellow (Yellow); GLUCOSE Negative (Negative); KETONE Negative (Negative); LEUKO ESTERASE 3+ (Negative); NITRITE Negative (Negative); SPECIFIC GRAVITY 1.015 (1.001-1.030); UROBILINOGEN 0.2 E.U./dl (0.0-1.0)
[2022-09-26 09:42] LABS: POTASSIUM 4.2 mmol/L (3.4-5.1); TOTAL PROTEIN 5.9 gm/dL (6.0-8.0); URIC ACID 6.3 mg/dL (3.1-9.2)
[2022-09-26 10:03] LABS: BACTERIA 1+; EPITHELIAL CELLS 0-2; MUCOUS 2+
[2022-09-26 10:14] LABS: URINE CREATININE RANDOM 40.46 mg/dL
[2022-09-26 10:29] LABS: VITAMIN D, 25-HYDROXY 232.4 ng/mL (30-100)
== END | disposition home or self-care (01) ==
LOC: LAB 08:43
DX: T86.12 Kidney transplant failure (principal); I12.9 Hypertensive chronic kidney disease with stage 1 through stage 4 chronic kidney disease, or unspecified chronic kidney disease; N18.4 Chronic kidney disease, stage 4 (severe)

== ENCOUNTER → 2022-11-02 | Outpatient (CLI) | payer OTHER ==
[2022-11-02 08:59] LABS: BASO % 0.1 % (0.0-1.0); EOS # 0.1 10*3/uL (0.0-0.4); EOS % 0.7 % (1.0-4.0); HEMATOCRIT 34.7 % (42.0-52.0); LYMPH # 0.9 10*3/uL (1.3-4.4); LYMPH % 10.3 % (27.0-41.0); MEAN CELL VOLUME 91.3 fl (80.0-94.0); MEAN CORPUSCULAR HGB 27.1 pg (27.0-31.0); MEAN CORPUSCULAR HGB CONC 29.7 g/dl (33.0-37.0); MEAN PLATELET VOLUME 8.6 fl (9.6-12.3); MONO % 11.4 % (3.0-9.0); NEUT # 6.4 10*3/uL (2.3-7.9); NEUT % 77.3 % (47.0-73.0); PLATELET COUNT AUTOMATED 237 10*3/uL (130-400); RED CELL DISTRI WIDTH 14.4 % (0-14.5); WHITE BLOOD COUNT 8.3 10*3/uL (4.8-10.8)
[2022-11-02 09:15] LABS: POTASSIUM 4.6 mmol/L (3.4-5.1); TOTAL PROTEIN 6.2 gm/dL (6.0-8.0); URIC ACID 6.6 mg/dL (3.7-9.2)
== END | disposition home or self-care (01) ==
LOC: LAB 08:32
PROVIDERS: ATTEND Nurse Practitioner Acute Care
DX: N18.4 Chronic kidney disease, stage 4 (severe) (principal); Z94.0 Kidney transplant status

== ENCOUNTER → 2023-01-24 | Outpatient (CLI) | payer OTHER ==
[~2023-01-24] MED LIST changes: +NYST SUSP PO; +OMNICEF300 MG PO
[2023-01-24 09:17] LABS: HEMATOCRIT 33.2 % (42.0-52.0); MEAN CELL VOLUME 89.2 fl (80.0-94.0); MEAN CORPUSCULAR HGB 26.3 pg (27.0-31.0); MEAN CORPUSCULAR HGB CONC 29.5 g/dl (33.0-37.0); MEAN PLATELET VOLUME 9.3 fl (9.6-12.3); PLATELET COUNT AUTOMATED 164 10*3/uL (130-400); RED BLOOD COUNT 3.72 10*6/uL (4.50-5.90); RED CELL DISTRI WIDTH 14.1 % (0-14.5)
[2023-01-24 09:28] LABS: MANUAL DIFF REFLEX YES; WHITE BLOOD COUNT 1.7 10*3/uL (4.8-10.8)
[2023-01-24 09:55] LABS: POTASSIUM 4.2 mmol/L (3.4-5.1)
[2023-01-24 09:57] LABS: ACANTHOCYTES FEW; PLATELET SUFFICIENCY NORMAL (NORMAL); POLYCHROMASIA SLIGHT; TOTAL CELLS COUNTED 100 #CELLS
== END | disposition home or self-care (01) ==
LOC: LAB 08:34
DX: Z48.298 Encounter for aftercare following other organ transplant (principal); I10 Essential (primary) hypertension; D84.9 Immunodeficiency, unspecified; R79.9 Abnormal finding of blood chemistry, unspecified; Z94.0 Kidney transplant status; Z94.83 Pancreas transplant status; Z79.899 Other long term (current) drug therapy

== ENCOUNTER 2023-01-28 14:21 | Emergency (ER) | payer OTHER ==
[~2023-01-28] VITALS: Ht 180.3 cm; Wt 68.0 kg
[~2023-01-28 14:21] MED LIST changes: -NYST SUSP PO; -OMNICEF300 MG PO
[2023-01-28 15:01] VITALS: BP 112/55
[2023-01-28 15:41] LABS: HEMATOCRIT 32.7 % (42.0-52.0); MEAN CELL VOLUME 89.1 fl (80.0-94.0); MEAN CORPUSCULAR HGB 26.2 pg (27.0-31.0); MEAN CORPUSCULAR HGB CONC 29.4 g/dl (33.0-37.0); MEAN PLATELET VOLUME 9.1 fl (9.6-12.3); PLATELET COUNT AUTOMATED 184 10*3/uL (130-400); RED BLOOD COUNT 3.67 10*6/uL (4.50-5.90); RED CELL DISTRI WIDTH 13.6 % (0-14.5); WHITE BLOOD COUNT 2.2 10*3/uL (4.8-10.8)
[2023-01-28 15:44] LABS: MANUAL DIFF REFLEX YES
[2023-01-28 16:10] LABS: POTASSIUM 4.6 mmol/L (3.4-5.1); TOTAL PROTEIN 6.2 gm/dL (6.0-8.0)
[2023-01-28 16:19] LABS: BILIRUBIN Negative (Negative); BLOOD Negative (Negative); CLARITY Clear (Clear); COLOR Yellow (Yellow); GLUCOSE Negative (Negative); KETONE Negative (Negative); LEUKO ESTERASE 3+ (Negative); NITRITE Negative (Negative); PH 7.5 (4.5-8.0); UROBILINOGEN 0.2 E.U./dl (0.0-1.0)
[2023-01-28 16:26] LABS: TOTAL CELLS COUNTED 100 #CELLS
[2023-01-28 16:27] LABS: PLATELET SUFFICIENCY NORMAL (NORMAL)
[2023-01-28 16:28] LABS: ACANTHOCYTES MODERATE
[2023-01-28 16:29] LABS: BURR CELLS FEW; OVALOCYTES FEW
[2023-01-28 16:30] LABS: BACTERIA TRACE; EPITHELIAL CELLS 0-2; MUCOUS 1+; RBC 0-2 rbc/hpf (0-2)
[2023-01-28] MEDS ORDERED: OMNICEF300 MG PO (16:47)
[2023-01-28] MEDS ORDERED: NYST SUSP PO (16:47)
== END 2023-01-28 17:05 | disposition home or self-care (01) ==
LOC: ED 14:21
PROVIDERS: Family Medicine
DX: N39.0 Urinary tract infection, site not specified (principal); B37.9 Candidiasis, unspecified; Z88.8 Allergy status to other drugs, medicaments and biological substances; Z79.899 Other long term (current) drug therapy; Z79.82 Long term (current) use of aspirin; Z98.890 Other specified postprocedural states

== ENCOUNTER → 2023-02-25 | Outpatient (CLI) | payer OTHER ==
[~2023-02-25] MED LIST changes: +CELLCEPT500 MG PO; +EVEROLIMUS PO; +LIPITOR80 MG PO; +NORVASC2.5 MG PO; +NYST SUSP PO; +OMNICEF300 MG PO
[2023-02-25 10:13] LABS: HEMATOCRIT 27.9 % (42.0-52.0); MEAN CELL VOLUME 90.3 fl (80.0-94.0); MEAN CORPUSCULAR HGB 26.5 pg (27.0-31.0); MEAN CORPUSCULAR HGB CONC 29.4 g/dl (33.0-37.0); MEAN PLATELET VOLUME 9.7 fl (9.6-12.3); PLATELET COUNT AUTOMATED 199 10*3/uL (130-400); RED BLOOD COUNT 3.09 10*6/uL (4.50-5.90); RED CELL DISTRI WIDTH 17.8 % (0-14.5); WHITE BLOOD COUNT 15.2 10*3/uL (4.8-10.8)
[2023-02-25 10:19] LABS: URINE CREATININE RANDOM 43.95 mg/dL
[2023-02-25 10:28] LABS: MANUAL DIFF REFLEX YES
[2023-02-25 10:36] LABS: TOTAL PROTEIN 5.6 gm/dL (6.0-8.0); URIC ACID 7.6 mg/dL (3.7-9.2)
[2023-02-25 11:03] LABS: ACANTHOCYTES MODERATE; PLATELET SUFFICIENCY NORMAL (NORMAL); SCHISTOCYTES FEW; TOTAL CELLS COUNTED 100 #CELLS
== END | disposition home or self-care (01) ==
LOC: LAB 09:35
PROVIDERS: Nurse Practitioner Acute Care; ATTEND Nurse Practitioner
DX: Z48.298 Encounter for aftercare following other organ transplant (principal); I12.9 Hypertensive chronic kidney disease with stage 1 through stage 4 chronic kidney disease, or unspecified chronic kidney disease; N18.4 Chronic kidney disease, stage 4 (severe); Z94.0 Kidney transplant status; Z94.83 Pancreas transplant status; R79.9 Abnormal finding of blood chemistry, unspecified; D84.9 Immunodeficiency, unspecified

== ENCOUNTER → 2023-05-22 | Outpatient (CLI) | payer OTHER ==
[2023-05-22 10:01] LABS: BASO % 0.1 % (0.0-1.0); EOS # 0.1 10*3/uL (0.0-0.4); EOS % 0.8 % (1.0-4.0); LYMPH # 1.1 10*3/uL (1.3-4.4); LYMPH % 12.1 % (27.0-41.0); MEAN CELL VOLUME 91.9 fl (80.0-94.0); MEAN CORPUSCULAR HGB 27.6 pg (27.0-31.0); MEAN PLATELET VOLUME 9.2 fl (9.6-12.3); MONO # 0.9 10*3/uL (0.1-1.0); MONO % 9.4 % (3.0-9.0); NEUT # 7.2 10*3/uL (2.3-7.9); NEUT % 77.4 % (47.0-73.0); PLATELET COUNT AUTOMATED 177 10*3/uL (130-400); RED CELL DISTRI WIDTH 13.8 % (0-14.5); WHITE BLOOD COUNT 9.3 10*3/uL (4.8-10.8)
[2023-05-22 10:11] LABS: URINE CREATININE RANDOM 46.78 mg/dL
[2023-05-22 10:29] LABS: POTASSIUM 4.4 mmol/L (3.4-5.1)
== END | disposition home or self-care (01) ==
LOC: LAB 09:28
PROVIDERS: ATTEND Nurse Practitioner
DX: I10 Essential (primary) hypertension (principal); R79.9 Abnormal finding of blood chemistry, unspecified; D64.9 Anemia, unspecified; Z94.83 Pancreas transplant status; Z94.0 Kidney transplant status; Z48.298 Encounter for aftercare following other organ transplant; Z79.899 Other long term (current) drug therapy

== ENCOUNTER → 2023-08-29 | Outpatient (CLI) | payer OTHER ==
[2023-08-29 10:09] LABS: BASO % 0.2 % (0.0-1.0); EOS # 0.1 10*3/uL (0.0-0.4); EOS % 0.6 % (1.0-4.0); HEMATOCRIT 30.5 % (42.0-52.0); LYMPH % 10.9 % (27.0-41.0); MEAN CORPUSCULAR HGB 27.1 pg (27.0-31.0); MEAN CORPUSCULAR HGB CONC 30.2 g/dl (33.0-37.0); MONO # 0.7 10*3/uL (0.1-1.0); MONO % 7.8 % (3.0-9.0); NEUT # 7.5 10*3/uL (2.3-7.9); NEUT % 80.2 % (47.0-73.0); PLATELET COUNT AUTOMATED 219 10*3/uL (130-400); RED BLOOD COUNT 3.39 10*6/uL (4.50-5.90); WHITE BLOOD COUNT 9.4 10*3/uL (4.8-10.8)
[2023-08-29 10:14] LABS: BILIRUBIN Negative (Negative); BLOOD Negative (Negative); CLARITY Clear (Clear); COLOR Yellow (Yellow); GLUCOSE Negative (Negative); KETONE Negative (Negative); LEUKO ESTERASE 3+ (Negative); NITRITE Negative (Negative); PH 7.5 (4.5-8.0); UROBILINOGEN 0.2 E.U./dl (0.0-1.0)
[2023-08-29 10:37] LABS: URINE CREATININE RANDOM 42.69 mg/dL; WBC 16-20 wbc/hpf (0-5)
[2023-08-29 10:38] LABS: RBC 0-2 rbc/hpf (0-2)
[2023-08-29 10:40] LABS: TOTAL PROTEIN 5.9 gm/dL (6.0-8.0); URIC ACID 7.8 mg/dL (3.7-9.2)
[2023-08-29 10:44] LABS: VITAMIN D, 25-HYDROXY 67.2 ng/mL (30-100)
== END | disposition home or self-care (01) ==
LOC: LAB 09:37
PROVIDERS: Internal Medicine Nephrology; ATTEND Internal Medicine Nephrology
DX: I12.9 Hypertensive chronic kidney disease with stage 1 through stage 4 chronic kidney disease, or unspecified chronic kidney disease (principal); N18.32 Chronic kidney disease, stage 3b; E87.20 Acidosis, unspecified; D63.1 Anemia in chronic kidney disease; E55.9 Vitamin D deficiency, unspecified; E21.3 Hyperparathyroidism, unspecified; E53.8 Deficiency of other specified B group vitamins; Z94.0 Kidney transplant status

== ENCOUNTER → 2023-10-01 | Outpatient (CLI) | payer OTHER ==
[2023-10-01 10:22] LABS: BASO % 0.1 % (0.0-1.0); EOS % 0.5 % (1.0-4.0); HEMATOCRIT 32.9 % (42.0-52.0); LYMPH # 1.1 10*3/uL (1.3-4.4); LYMPH % 14.1 % (27.0-41.0); MEAN CELL VOLUME 93.5 fl (80.0-94.0); MEAN CORPUSCULAR HGB 27.3 pg (27.0-31.0); MEAN CORPUSCULAR HGB CONC 29.2 g/dl (33.0-37.0); MEAN PLATELET VOLUME 9.9 fl (9.6-12.3); MONO # 0.6 10*3/uL (0.1-1.0); MONO % 7.9 % (3.0-9.0); NEUT # 5.9 10*3/uL (2.3-7.9); NEUT % 77.1 % (47.0-73.0); PLATELET COUNT AUTOMATED 189 10*3/uL (130-400); RED BLOOD COUNT 3.52 10*6/uL (4.50-5.90); RED CELL DISTRI WIDTH 14.6 % (0-14.5); WHITE BLOOD COUNT 7.6 10*3/uL (4.8-10.8)
[2023-10-01 10:52] LABS: POTASSIUM 4.4 mmol/L (3.4-5.1); TOTAL PROTEIN 5.9 gm/dL (6.0-8.0)
[2023-10-01 10:57] LABS: VITAMIN D, 25-HYDROXY 73.2 ng/mL (30-100)
[2023-10-01 11:05] LABS: BILIRUBIN Negative (Negative); BLOOD Negative (Negative); CLARITY Clear (Clear); COLOR Yellow (Yellow); GLUCOSE Negative (Negative); KETONE Negative (Negative); LEUKO ESTERASE 3+ (Negative); NITRITE Negative (Negative); PH 7.5 (4.5-8.0); UROBILINOGEN 0.2 E.U./dl (0.0-1.0)
[2023-10-01 11:15] LABS: MUCOUS 2+; RBC 0-2 rbc/hpf (0-2); WBC 16-20 wbc/hpf (0-5)
[2023-10-01 11:17] LABS: URINE CREATININE RANDOM 45.81 mg/dL
== END | disposition home or self-care (01) ==
LOC: LAB 09:27
PROVIDERS: ATTEND Internal Medicine Nephrology
DX: I12.9 Hypertensive chronic kidney disease with stage 1 through stage 4 chronic kidney disease, or unspecified chronic kidney disease (principal); N18.32 Chronic kidney disease, stage 3b; E55.9 Vitamin D deficiency, unspecified; E21.1 Secondary hyperparathyroidism, not elsewhere classified; R79.9 Abnormal finding of blood chemistry, unspecified; D84.9 Immunodeficiency, unspecified; Z48.298 Encounter for aftercare following other organ transplant; Z79.899 Other long term (current) drug therapy; Z94.0 Kidney transplant status; Z94.83 Pancreas transplant status

== ENCOUNTER → 2023-11-21 | Outpatient (CLI) | payer OTHER ==
[2023-11-21 12:08] LABS: BASO % 0.2 % (0.0-1.0); EOS % 0.3 % (1.0-4.0); HEMATOCRIT 33.2 % (42.0-52.0); LYMPH # 0.9 10*3/uL (1.3-4.4); MEAN CORPUSCULAR HGB 27.5 pg (27.0-31.0); MEAN CORPUSCULAR HGB CONC 29.5 g/dl (33.0-37.0); MEAN PLATELET VOLUME 9.3 fl (9.6-12.3); MONO # 0.7 10*3/uL (0.1-1.0); MONO % 6.3 % (3.0-9.0); NEUT # 9.7 10*3/uL (2.3-7.9); NEUT % 84.9 % (47.0-73.0); PLATELET COUNT AUTOMATED 215 10*3/uL (130-400); RED BLOOD COUNT 3.57 10*6/uL (4.50-5.90); RED CELL DISTRI WIDTH 14.9 % (0-14.5); WHITE BLOOD COUNT 11.5 10*3/uL (4.8-10.8)
[2023-11-21 12:12] LABS: BILIRUBIN Negative (Negative); BLOOD 1+ (Negative); CLARITY Clear (Clear); COLOR Yellow (Yellow); GLUCOSE Negative (Negative); KETONE Negative (Negative); LEUKO ESTERASE 3+ (Negative); NITRITE Negative (Negative); UROBILINOGEN 0.2 E.U./dl (0.0-1.0)
[2023-11-21 12:19] LABS: MUCOUS 1+
[2023-11-21 12:24] LABS: URINE CREATININE RANDOM 42.63 mg/dL
[2023-11-21 12:25] LABS: POTASSIUM 4.5 mmol/L (3.4-5.1); TOTAL PROTEIN 6.1 gm/dL (6.0-8.0); URIC ACID 8.3 mg/dL (3.7-9.2)
== END | disposition home or self-care (01) ==
LOC: LAB 09:38
PROVIDERS: ATTEND Internal Medicine Nephrology
DX: Z48.298 Encounter for aftercare following other organ transplant (principal); I12.9 Hypertensive chronic kidney disease with stage 1 through stage 4 chronic kidney disease, or unspecified chronic kidney disease; N18.32 Chronic kidney disease, stage 3b; Z94.0 Kidney transplant status; Z94.83 Pancreas transplant status; R79.9 Abnormal finding of blood chemistry, unspecified

== ENCOUNTER → 2023-12-23 | Outpatient (CLI) | payer OTHER ==
[2023-12-23 10:33] LABS: BASO % 0.1 % (0.0-1.0); EOS # 0.1 10*3/uL (0.0-0.4); EOS % 1.3 % (1.0-4.0); HEMATOCRIT 32.6 % (42.0-52.0); LYMPH # 1.1 10*3/uL (1.3-4.4); LYMPH % 15.6 % (27.0-41.0); MEAN CELL VOLUME 93.1 fl (80.0-94.0); MEAN CORPUSCULAR HGB 26.9 pg (27.0-31.0); MEAN CORPUSCULAR HGB CONC 28.8 g/dl (33.0-37.0); MEAN PLATELET VOLUME 9.3 fl (9.6-12.3); MONO # 0.7 10*3/uL (0.1-1.0); MONO % 9.6 % (3.0-9.0); NEUT # 5.3 10*3/uL (2.3-7.9); NEUT % 73.3 % (47.0-73.0); PLATELET COUNT AUTOMATED 215 10*3/uL (130-400); RED CELL DISTRI WIDTH 14.8 % (0-14.5); WHITE BLOOD COUNT 7.2 10*3/uL (4.8-10.8)
[2023-12-23 10:51] LABS: URINE CREATININE RANDOM 60.03 mg/dL
== END | disposition home or self-care (01) ==
LOC: LAB 09:45
PROVIDERS: ATTEND Nurse Practitioner
DX: R79.9 Abnormal finding of blood chemistry, unspecified (principal); D84.9 Immunodeficiency, unspecified; Z94.0 Kidney transplant status; Z94.83 Pancreas transplant status; Z48.298 Encounter for aftercare following other organ transplant

== ENCOUNTER 2024-01-23 20:41 | Emergency (ER) | payer OTHER ==
[2024-01-23] MEDS ORDERED: SODIUM CHLORIDE 0.9% 1,000 ML IV ONE ×2 (22:20→23:55)
[2024-01-23] MEDS ORDERED: Ondansetron Hydrochloride 4 MG/2 ML VIAL IV ONE (22:20)
[2024-01-23 22:41] LABS: HEMATOCRIT 32.1 % (42.0-52.0); MEAN CELL VOLUME 90.9 fl (80.0-94.0); MEAN CORPUSCULAR HGB 26.9 pg (27.0-31.0); MEAN CORPUSCULAR HGB CONC 29.6 g/dl (33.0-37.0); PLATELET COUNT AUTOMATED 186 10*3/uL (130-400); RED BLOOD COUNT 3.53 10*6/uL (4.50-5.90); RED CELL DISTRI WIDTH 15.6 % (0-14.5)
[2024-01-23 22:47] LABS: MANUAL DIFF REFLEX YES
[2024-01-23 23:06] LABS: PLATELET SUFFICIENCY NORMAL (NORMAL); TOTAL CELLS COUNTED 100 #CELLS
[2024-01-23 23:07] LABS: BURR CELLS FEW; OVALOCYTES FEW; SCHISTOCYTES FEW
[2024-01-23 23:08] LABS: POTASSIUM 4.3 mmol/L (3.4-5.1); TOTAL PROTEIN 5.6 gm/dL (6.0-8.0)
[2024-01-23 23:20] LABS: BILIRUBIN Negative (Negative); BLOOD Negative (Negative); CLARITY Clear (Clear); COLOR Yellow (Yellow); GLUCOSE Negative (Negative); KETONE Negative (Negative); LEUKO ESTERASE 3+ (Negative); NITRITE Negative (Negative); PH 6.5 (4.5-8.0); UROBILINOGEN 0.2 E.U./dl (0.0-1.0)
[2024-01-23 23:28] LABS: BACTERIA 1+; MUCOUS 2+; RBC 0-2 rbc/hpf (0-2)
[2024-01-23] MEDS ORDERED: Piperacillin Sodium/Tazobact 50 ML IV ONE (23:55)
[2024-01-24] MEDS ORDERED: ACETAMINOPHEN 650 MG SUPP R ONE (01:00)
[2024-01-24] MEDS ORDERED: Promethazine Hydrochloride 25 MG/ML VIAL IV ONE (01:00)
[2024-01-24] MEDS ORDERED: ACETAMINOPHEN 500 MG TAB PO ONE (03:20)
[2024-01-24] MEDS ORDERED: Promethazine Hydrochloride 25 MG/ML VIAL IM ONE (03:50)
[2024-01-24 07:46] VITALS: BP 125/78
== END 2024-01-24 07:46 | disposition short-term general hospital (02) ==
LOC: ED 20:41
PROVIDERS: Emergency Medicine
DX: N17.9 Acute kidney failure, unspecified (principal); Z20.822 Contact with and (suspected) exposure to COVID-19; D72.829 Elevated white blood cell count, unspecified; J18.9 Pneumonia, unspecified organism; N39.0 Urinary tract infection, site not specified; R11.10 Vomiting, unspecified; A41.9 Sepsis, unspecified organism; E78.00 Pure hypercholesterolemia, unspecified; D64.9 Anemia, unspecified; I12.9 Hypertensive chronic kidney disease with stage 1 through stage 4 chronic kidney disease, or unspecified chronic kidney disease; E11.22 Type 2 diabetes mellitus with diabetic chronic kidney disease; N18.9 Chronic kidney disease, unspecified; I25.10 Atherosclerotic heart disease of native coronary artery without angina pectoris; I25.2 Old myocardial infarction; Z88.8 Allergy status to other drugs, medicaments and biological substances; E03.9 Hypothyroidism, unspecified; N18.30 Chronic kidney disease, stage 3 unspecified; Z98.890 Other specified postprocedural states; Z95.5 Presence of coronary angioplasty implant and graft

== ENCOUNTER 2024-02-09 20:37 | Emergency (ER) | payer OTHER ==
[~2024-02-09] VITALS: Ht 180.3 cm; Wt 72.6 kg
[2024-02-09 20:44] VITALS: BP 95/55
[2024-02-09 21:19] LABS: BASO % 0.4 % (0.0-1.0); EOS # 0.1 10*3/uL (0.0-0.4); EOS % 0.8 % (1.0-4.0); HEMATOCRIT 34.8 % (42.0-52.0); LYMPH # 1.4 10*3/uL (1.3-4.4); LYMPH % 19.6 % (27.0-41.0); MEAN CELL VOLUME 96.4 fl (80.0-94.0); MEAN CORPUSCULAR HGB 27.4 pg (27.0-31.0); MEAN CORPUSCULAR HGB CONC 28.4 g/dl (33.0-37.0); MEAN PLATELET VOLUME 9.3 fl (9.6-12.3); MONO # 0.8 10*3/uL (0.1-1.0); MONO % 10.5 % (3.0-9.0); NEUT % 68.3 % (47.0-73.0); PLATELET COUNT AUTOMATED 260 10*3/uL (130-400); RED BLOOD COUNT 3.61 10*6/uL (4.50-5.90); RED CELL DISTRI WIDTH 16.9 % (0-14.5); WHITE BLOOD COUNT 7.3 10*3/uL (4.8-10.8)
[2024-02-09 21:42] LABS: POTASSIUM 5.1 mmol/L (3.4-5.1); TOTAL PROTEIN 5.5 gm/dL (6.0-8.0)
[2024-02-12 14:08] LABS: BK QUANTITATION PCR Negative (Negative)
== END 2024-02-09 23:44 | disposition home or self-care (01) ==
LOC: ED 20:37
PROVIDERS: Nurse Practitioner Family
DX: E11.649 Type 2 diabetes mellitus with hypoglycemia without coma (principal); N18.9 Chronic kidney disease, unspecified; E78.00 Pure hypercholesterolemia, unspecified; D64.9 Anemia, unspecified; E11.22 Type 2 diabetes mellitus with diabetic chronic kidney disease; I12.9 Hypertensive chronic kidney disease with stage 1 through stage 4 chronic kidney disease, or unspecified chronic kidney disease; I25.10 Atherosclerotic heart disease of native coronary artery without angina pectoris; I25.2 Old myocardial infarction; E03.9 Hypothyroidism, unspecified; Z88.8 Allergy status to other drugs, medicaments and biological substances; Z95.5 Presence of coronary angioplasty implant and graft; Z98.890 Other specified postprocedural states

== ENCOUNTER → 2024-03-18 | Outpatient (CLI) | payer OTHER ==
[2024-03-18 10:07] LABS: BASO % 0.2 % (0.0-1.0); EOS # 0.1 10*3/uL (0.0-0.4); EOS % 0.9 % (1.0-4.0); HEMATOCRIT 34.7 % (42.0-52.0); LYMPH # 1.3 10*3/uL (1.3-4.4); LYMPH % 14.6 % (27.0-41.0); MEAN CELL VOLUME 92.5 fl (80.0-94.0); MEAN CORPUSCULAR HGB 26.9 pg (27.0-31.0); MEAN CORPUSCULAR HGB CONC 29.1 g/dl (33.0-37.0); MEAN PLATELET VOLUME 9.6 fl (9.6-12.3); MONO # 0.7 10*3/uL (0.1-1.0); MONO % 7.7 % (3.0-9.0); NEUT # 6.6 10*3/uL (2.3-7.9); NEUT % 76.1 % (47.0-73.0); PLATELET COUNT AUTOMATED 221 10*3/uL (130-400); RED BLOOD COUNT 3.75 10*6/uL (4.50-5.90); RED CELL DISTRI WIDTH 15.6 % (0-14.5); WHITE BLOOD COUNT 8.7 10*3/uL (4.8-10.8)
[2024-03-18 10:36] LABS: POTASSIUM 4.9 mmol/L (3.4-5.1)
== END | disposition home or self-care (01) ==
LOC: LAB 09:41
PROVIDERS: ATTEND Nurse Practitioner
DX: D84.9 Immunodeficiency, unspecified (principal); R79.9 Abnormal finding of blood chemistry, unspecified; Z48.298 Encounter for aftercare following other organ transplant; Z94.83 Pancreas transplant status; Z94.0 Kidney transplant status

== ENCOUNTER → 2024-05-12 | Outpatient (CLI) | payer OTHER ==
[2024-05-12 10:27] LABS: BASO % 0.2 % (0.0-1.0); EOS # 0.1 10*3/uL (0.0-0.4); EOS % 0.7 % (1.0-4.0); HEMATOCRIT 32.9 % (42.0-52.0); LYMPH # 0.9 10*3/uL (1.3-4.4); LYMPH % 7.9 % (27.0-41.0); MEAN CELL VOLUME 87.5 fl (80.0-94.0); MEAN CORPUSCULAR HGB 26.6 pg (27.0-31.0); MEAN CORPUSCULAR HGB CONC 30.4 g/dl (33.0-37.0); MEAN PLATELET VOLUME 9.5 fl (9.6-12.3); MONO # 1.3 10*3/uL (0.1-1.0); MONO % 11.4 % (3.0-9.0); NEUT # 9.2 10*3/uL (2.3-7.9); NEUT % 79.3 % (47.0-73.0); PLATELET COUNT AUTOMATED 206 10*3/uL (130-400); RED BLOOD COUNT 3.76 10*6/uL (4.50-5.90); RED CELL DISTRI WIDTH 14.6 % (0-14.5); WHITE BLOOD COUNT 11.6 10*3/uL (4.8-10.8)
[2024-05-12 10:49] LABS: POTASSIUM 4.5 mmol/L (3.4-5.1)
== END | disposition home or self-care (01) ==
LOC: LAB 09:44
PROVIDERS: ATTEND Nurse Practitioner
DX: R79.9 Abnormal finding of blood chemistry, unspecified (principal); D64.9 Anemia, unspecified; Z48.298 Encounter for aftercare following other organ transplant; Z94.83 Pancreas transplant status; Z94.0 Kidney transplant status

== ENCOUNTER → 2024-05-15 | Outpatient (CLI) | payer OTHER ==
[2024-05-15 08:51] LABS: BASO % 0.1 % (0.0-1.0); EOS # 0.1 10*3/uL (0.0-0.4); LYMPH # 1.1 10*3/uL (1.3-4.4); LYMPH % 11.7 % (27.0-41.0); MEAN CELL VOLUME 88.7 fl (80.0-94.0); MEAN CORPUSCULAR HGB 26.3 pg (27.0-31.0); MEAN CORPUSCULAR HGB CONC 29.7 g/dl (33.0-37.0); MEAN PLATELET VOLUME 9.4 fl (9.6-12.3); MONO # 1.2 10*3/uL (0.1-1.0); MONO % 13.2 % (3.0-9.0); NEUT # 6.9 10*3/uL (2.3-7.9); PLATELET COUNT AUTOMATED 263 10*3/uL (130-400); RED BLOOD COUNT 3.72 10*6/uL (4.50-5.90); RED CELL DISTRI WIDTH 14.6 % (0-14.5); WHITE BLOOD COUNT 9.4 10*3/uL (4.8-10.8)
[2024-05-15 08:53] LABS: BILIRUBIN Negative (Negative); BLOOD 3+ (Negative); CLARITY Turbid (Clear); COLOR Orange (Yellow); GLUCOSE Negative (Negative); KETONE Negative (Negative); LEUKO ESTERASE 3+ (Negative); NITRITE Negative (Negative); PH 7.5 (4.5-8.0); UROBILINOGEN 0.2 E.U./dl (0.0-1.0)
[2024-05-15 09:02] LABS: BACTERIA 2+; RBC 21-30 rbc/hpf (0-2); WBC TNTC wbc/hpf (0-5)
[2024-05-15 09:24] LABS: POTASSIUM 4.7 mmol/L (3.4-5.1)
== END | disposition home or self-care (01) ==
LOC: LAB 07:59
PROVIDERS: ATTEND Surgery
DX: D84.9 Immunodeficiency, unspecified (principal); R79.9 Abnormal finding of blood chemistry, unspecified; Z79.899 Other long term (current) drug therapy; Z48.298 Encounter for aftercare following other organ transplant; Z94.83 Pancreas transplant status; Z94.0 Kidney transplant status

== ENCOUNTER 2024-07-01 07:35 | Emergency (ER) | payer OTHER ==
[~2024-07-01] VITALS: Ht 180.3 cm
[2024-07-01] MEDS ORDERED: SODIUM CHLORIDE 0.9% 1,000 ML IV ONE (07:45)
[2024-07-01 08:08] LABS: HEMATOCRIT 29.8 % (42.0-52.0); MEAN CORPUSCULAR HGB 25.7 pg (27.0-31.0); MEAN CORPUSCULAR HGB CONC 28.9 g/dl (33.0-37.0); MEAN PLATELET VOLUME 8.7 fl (9.6-12.3); PLATELET COUNT AUTOMATED 352 10*3/uL (130-400); RED BLOOD COUNT 3.35 10*6/uL (4.50-5.90); RED CELL DISTRI WIDTH 15.9 % (0-14.5)
[2024-07-01 08:09] LABS: MANUAL DIFF REFLEX YES
[2024-07-01 08:23] LABS: ACT PARTIAL THROMBO TIME 29.5 SECONDS (20.0-32.1)
[2024-07-01 08:32] LABS: POTASSIUM 3.9 mmol/L (3.4-5.1); TOTAL PROTEIN 6.4 gm/dL (6.0-8.0)
[2024-07-01 08:38] LABS: BURR CELLS FEW; POLYCHROMASIA SLIGHT; SCHISTOCYTES FEW; TOTAL CELLS COUNTED 100 #CELLS
[2024-07-01 08:39] LABS: ACANTHOCYTES FEW; PLATELET SUFFICIENCY NORMAL (NORMAL)
[2024-07-01 08:39] LABS: BILIRUBIN Negative (Negative); BLOOD 3+ (Negative); CLARITY Turbid (Clear); COLOR Orange (Yellow); GLUCOSE Negative (Negative); KETONE Negative (Negative); LEUKO ESTERASE 3+ (Negative); NITRITE Negative (Negative); UROBILINOGEN 0.2 E.U./dl (0.0-1.0)
[2024-07-01] MEDS ORDERED: Mycophenolate Mofetil 250 MG CAP PO ONE (09:05)
[2024-07-01 09:09] LABS: BACTERIA 2+; RBC TNTC rbc/hpf (0-2); WBC TNTC wbc/hpf (0-5)
[2024-07-01] MEDS ORDERED: Piperacillin Sodium/Tazobact 50 ML IV ONE (09:10)
[2024-07-01] MEDS ORDERED: SODIUM CHLORIDE 0.9% 1,000 ML IV SCH (09:10)
[2024-07-01] MEDS ORDERED: Promethazine Hydrochloride 25 MG/ML VIAL IV ONE (11:10)
[2024-07-01 13:20] VITALS: BP 146/73
== END 2024-07-01 14:04 | disposition short-term general hospital (02) ==
LOC: ED 07:35
PROVIDERS: Internal Medicine
DX: A41.9 Sepsis, unspecified organism (principal); Z20.822 Contact with and (suspected) exposure to COVID-19; R65.20 Severe sepsis without septic shock; N17.9 Acute kidney failure, unspecified; D64.9 Anemia, unspecified; N39.0 Urinary tract infection, site not specified; I10 Essential (primary) hypertension; E11.9 Type 2 diabetes mellitus without complications; I25.10 Atherosclerotic heart disease of native coronary artery without angina pectoris; I25.2 Old myocardial infarction; E03.9 Hypothyroidism, unspecified; Z88.8 Allergy status to other drugs, medicaments and biological substances; Z95.5 Presence of coronary angioplasty implant and graft; Z98.890 Other specified postprocedural states

== ENCOUNTER 2024-07-26 22:32 | Emergency (ER) | payer OTHER ==
[~2024-07-26] VITALS: Ht 177.8 cm; Wt 77.1 kg
[2024-07-26 22:52] VITALS: BP 122/68
[2024-07-26] MEDS ORDERED: Lidocaine Hydrochloride 10 ML SYR UR ONE (23:15)
[2024-07-26] MEDS ORDERED: Acetaminophen/Hydrocodone 5 MG/325 MG TABLET PO ONE (23:35)
== END 2024-07-27 01:39 | disposition home or self-care (01) ==
LOC: ED 22:32
DX: R33.9 Retention of urine, unspecified (principal); E78.00 Pure hypercholesterolemia, unspecified; D63.1 Anemia in chronic kidney disease; I25.10 Atherosclerotic heart disease of native coronary artery without angina pectoris; E11.22 Type 2 diabetes mellitus with diabetic chronic kidney disease; I12.9 Hypertensive chronic kidney disease with stage 1 through stage 4 chronic kidney disease, or unspecified chronic kidney disease; N18.30 Chronic kidney disease, stage 3 unspecified; I25.2 Old myocardial infarction; E03.9 Hypothyroidism, unspecified; Z88.8 Allergy status to other drugs, medicaments and biological substances; Z98.890 Other specified postprocedural states; Z95.5 Presence of coronary angioplasty implant and graft

== ENCOUNTER → 2024-08-19 | Outpatient (CLI) | payer OTHER ==
[2024-08-19 08:20] LABS: BASO % 0.1 % (0.0-1.0); EOS # 0.1 10*3/uL (0.0-0.4); HEMATOCRIT 38.6 % (42.0-52.0); MEAN CELL VOLUME 93.5 fl (80.0-94.0); MEAN CORPUSCULAR HGB 26.6 pg (27.0-31.0); MEAN CORPUSCULAR HGB CONC 28.5 g/dl (33.0-37.0); MEAN PLATELET VOLUME 9.3 fl (9.6-12.3); MONO # 0.8 10*3/uL (0.1-1.0); MONO % 10.5 % (3.0-9.0); NEUT # 5.3 10*3/uL (2.3-7.9); NEUT % 68.5 % (47.0-73.0); PLATELET COUNT AUTOMATED 223 10*3/uL (130-400); RED BLOOD COUNT 4.13 10*6/uL (4.50-5.90); RED CELL DISTRI WIDTH 18.3 % (0-14.5); WHITE BLOOD COUNT 7.7 10*3/uL (4.8-10.8)
[2024-08-19 08:50] LABS: URINE CREATININE RANDOM 54.66 mg/dL
[2024-08-19 08:53] LABS: POTASSIUM 5.5 mmol/L (3.4-5.1)
== END | disposition home or self-care (01) ==
LOC: LAB 07:55
PROVIDERS: ATTEND Internal Medicine Nephrology
DX: Z48.298 Encounter for aftercare following other organ transplant (principal); I12.9 Hypertensive chronic kidney disease with stage 1 through stage 4 chronic kidney disease, or unspecified chronic kidney disease; N18.32 Chronic kidney disease, stage 3b; D84.9 Immunodeficiency, unspecified; R79.9 Abnormal finding of blood chemistry, unspecified; E87.22 Chronic metabolic acidosis; Z94.83 Pancreas transplant status; Z94.0 Kidney transplant status

== ENCOUNTER → 2024-12-03 | Outpatient (CLI) | payer OTHER ==
[2024-12-03 08:08] LABS: BASO % 0.1 % (0.0-1.0); EOS # 0.1 10*3/uL (0.0-0.4); EOS % 1.1 % (1.0-4.0); HEMATOCRIT 40.2 % (42.0-52.0); MEAN CELL VOLUME 87.2 fl (80.0-94.0); MEAN CORPUSCULAR HGB 26.2 pg (27.0-31.0); MEAN CORPUSCULAR HGB CONC 30.1 g/dl (33.0-37.0); MEAN PLATELET VOLUME 8.7 fl (9.6-12.3); MONO % 10.1 % (3.0-9.0); NEUT # 7.2 10*3/uL (2.3-7.9); NEUT % 72.5 % (47.0-73.0); PLATELET COUNT AUTOMATED 213 10*3/uL (130-400); RED BLOOD COUNT 4.61 10*6/uL (4.50-5.90); RED CELL DISTRI WIDTH 15.5 % (0-14.5); WHITE BLOOD COUNT 9.9 10*3/uL (4.8-10.8)
[2024-12-03 09:14] LABS: POTASSIUM 4.5 mmol/L (3.4-5.1); TOTAL PROTEIN 6.1 gm/dL (6.0-8.0); URIC ACID 7.3 mg/dL (3.7-9.2)
[2024-12-03 09:16] LABS: VITAMIN D, 25-HYDROXY 61.1 ng/mL (30-100)
== END | disposition home or self-care (01) ==
LOC: LAB 07:41
PROVIDERS: Internal Medicine Nephrology; ATTEND Nurse Practitioner
DX: D84.9 Immunodeficiency, unspecified (principal); R79.9 Abnormal finding of blood chemistry, unspecified; Z94.0 Kidney transplant status; Z94.83 Pancreas transplant status; Z48.298 Encounter for aftercare following other organ transplant

== ENCOUNTER → 2024-12-30 | Outpatient (CLI) | payer OTHER ==
[2024-12-30 13:29] LABS: BASO % 0.1 % (0.0-1.0); EOS # 0.1 10*3/uL (0.0-0.4); EOS % 0.7 % (1.0-4.0); MEAN CELL VOLUME 89.8 fl (80.0-94.0); MEAN CORPUSCULAR HGB 27.2 pg (27.0-31.0); MEAN CORPUSCULAR HGB CONC 30.3 g/dl (33.0-37.0); MEAN PLATELET VOLUME 9.1 fl (9.6-12.3); MONO # 0.4 10*3/uL (0.1-1.0); MONO % 4.9 % (3.0-9.0); NEUT # 7.3 10*3/uL (2.3-7.9); NEUT % 85.3 % (47.0-73.0); PLATELET COUNT AUTOMATED 209 10*3/uL (130-400); RED BLOOD COUNT 4.12 10*6/uL (4.50-5.90); RED CELL DISTRI WIDTH 15.9 % (0-14.5); WHITE BLOOD COUNT 8.6 10*3/uL (4.8-10.8)
[2024-12-30 13:40] LABS: BILIRUBIN Negative (Negative); BLOOD Trace-Lysed (Negative); CLARITY Clear (Clear); COLOR Yellow (Yellow); GLUCOSE Negative (Negative); KETONE Negative (Negative); LEUKO ESTERASE 3+ (Negative); NITRITE Negative (Negative); PH 7.5 (4.5-8.0); UROBILINOGEN 0.2 E.U./dl (0.0-1.0)
[2024-12-30 13:51] LABS: POTASSIUM 5.3 mmol/L (3.4-5.1)
[2024-12-30 14:02] LABS: MUCOUS 1+; RBC 0-2 rbc/hpf (0-2)
== END | disposition home or self-care (01) ==
LOC: LAB 13:03
PROVIDERS: ATTEND Internal Medicine Nephrology
DX: Z48.298 Encounter for aftercare following other organ transplant (principal); R79.9 Abnormal finding of blood chemistry, unspecified; D64.9 Anemia, unspecified; Z79.899 Other long term (current) drug therapy; Z79.60 Long term (current) use of unspecified immunomodulators and immunosuppressants; Z94.0 Kidney transplant status

== ENCOUNTER 2025-02-05 19:39 | Emergency (ER) | payer OTHER ==
[~2025-02-05] VITALS: Ht 180.3 cm; Wt 68.0 kg
[2025-02-05 19:56] VITALS: BP 113/57
[2025-02-05 20:23] LABS: BILIRUBIN Negative (Negative); BLOOD 3+ (Negative); CLARITY Turbid (Clear); COLOR Orange (Yellow); GLUCOSE Negative (Negative); KETONE Negative (Negative); LEUKO ESTERASE 3+ (Negative); NITRITE Negative (Negative); PH 7.5 (4.5-8.0); SPECIFIC GRAVITY 1.015 (1.001-1.030); UROBILINOGEN 0.2 E.U./dl (0.0-1.0)
[2025-02-05 20:47] LABS: BACTERIA 4+; RBC 51-100 rbc/hpf (0-2); WBC TNTC wbc/hpf (0-5)
[2025-02-05] MEDS ORDERED: CIPRO500 MG PO (20:49)
[2025-02-05] MEDS ORDERED: Ciprofloxacin Hydrochloride 500 MG TAB PO ONE (20:50)
== END 2025-02-05 20:53 | disposition home or self-care (01) ==
LOC: ED 19:39
PROVIDERS: Nurse Practitioner Family
DX: T83.511A Infection and inflammatory reaction due to indwelling urethral catheter, initial encounter (principal); N39.0 Urinary tract infection, site not specified; I10 Essential (primary) hypertension; E11.9 Type 2 diabetes mellitus without complications; I25.10 Atherosclerotic heart disease of native coronary artery without angina pectoris; E03.9 Hypothyroidism, unspecified; Z79.82 Long term (current) use of aspirin; Z79.899 Other long term (current) drug therapy; Z88.8 Allergy status to other drugs, medicaments and biological substances; Z98.890 Other specified postprocedural states; Y84.6 Urinary catheterization as the cause of abnormal reaction of the patient, or of later complication, without mention of misadventure at the time of the procedure

== ENCOUNTER 2025-02-19 11:34 | Emergency (ER) | payer OTHER ==
[~2025-02-19] VITALS: Ht 180.3 cm; Wt 68.0 kg
[~2025-02-19 11:34] MED LIST changes: +CIPRO500 MG PO
[2025-02-19 11:48] VITALS: BP 99/54
[2025-02-19 12:03] LABS: BILIRUBIN Negative (Negative); BLOOD 2+ (Negative); CLARITY Turbid (Clear); COLOR Yellow (Yellow); GLUCOSE Negative (Negative); KETONE Negative (Negative); LEUKO ESTERASE 3+ (Negative); NITRITE Negative (Negative); UROBILINOGEN 0.2 E.U./dl (0.0-1.0)
[2025-02-19 12:06] LABS: HEMATOCRIT 34.2 % (42.0-52.0); MEAN CELL VOLUME 88.6 fl (80.0-94.0); MEAN CORPUSCULAR HGB 26.9 pg (27.0-31.0); MEAN CORPUSCULAR HGB CONC 30.4 g/dl (33.0-37.0); MEAN PLATELET VOLUME 8.8 fl (9.6-12.3); PLATELET COUNT AUTOMATED 278 10*3/uL (130-400); RED BLOOD COUNT 3.86 10*6/uL (4.50-5.90); RED CELL DISTRI WIDTH 15.1 % (0-14.5); WHITE BLOOD COUNT 14.5 10*3/uL (4.8-10.8)
[2025-02-19 12:09] LABS: MANUAL DIFF REFLEX YES
[2025-02-19 12:19] LABS: BACTERIA 4+; WBC TNTC wbc/hpf (0-5)
[2025-02-19 12:24] LABS: POTASSIUM 4.2 mmol/L (3.4-5.1)
[2025-02-19] MEDS ORDERED: Ciprofloxacin Hydrochloride 500 MG TAB PO ONE (12:25)
[2025-02-19 12:27] LABS: TOTAL CELLS COUNTED 100 #CELLS
[2025-02-19 12:28] LABS: PLATELET SUFFICIENCY NORMAL (NORMAL); SCHISTOCYTES FEW
[2025-02-19 12:30] LABS: BURR CELLS FEW
== END 2025-02-19 12:52 | disposition home or self-care (01) ==
LOC: ED 11:34
PROVIDERS: Nurse Practitioner Family
DX: N39.0 Urinary tract infection, site not specified (principal); R33.9 Retention of urine, unspecified; Z88.8 Allergy status to other drugs, medicaments and biological substances; Z79.899 Other long term (current) drug therapy; Z79.82 Long term (current) use of aspirin; Z94.0 Kidney transplant status; Z94.83 Pancreas transplant status; Z95.5 Presence of coronary angioplasty implant and graft

== ENCOUNTER 2025-02-28 18:52 | Emergency (ER) | payer OTHER ==
[~2025-02-28] VITALS: Ht 180.3 cm; Wt 71.2 kg
[2025-02-28 19:15] VITALS: BP 118/57
[2025-02-28 19:37] LABS: BASO % 0.1 % (0.0-1.0); EOS # 0.3 10*3/uL (0.0-0.4); EOS % 3.8 % (1.0-4.0); HEMATOCRIT 27.3 % (42.0-52.0); MEAN CELL VOLUME 91.3 fl (80.0-94.0); MEAN CORPUSCULAR HGB 27.1 pg (27.0-31.0); MEAN CORPUSCULAR HGB CONC 29.7 g/dl (33.0-37.0); MONO # 1.1 10*3/uL (0.1-1.0); MONO % 11.8 % (3.0-9.0); NEUT # 6.6 10*3/uL (2.3-7.9); NEUT % 73.8 % (47.0-73.0); PLATELET COUNT AUTOMATED 263 10*3/uL (130-400); RED BLOOD COUNT 2.99 10*6/uL (4.50-5.90); RED CELL DISTRI WIDTH 14.7 % (0-14.5); WHITE BLOOD COUNT 8.9 10*3/uL (4.8-10.8)
[2025-02-28 19:59] LABS: TOTAL PROTEIN 5.4 gm/dL (6.0-8.0)
[2025-02-28] MEDS ORDERED: cefTRIAXone Sodium 1 GM/10 ML SYR IV ONE (20:05)
[2025-02-28] MEDS ORDERED: Dexamethasone Sodium Phospha 10 MG/1 ML VIAL IV ONE (20:05)
[2025-02-28 20:14] LABS: BILIRUBIN Negative (Negative); BLOOD 3+ (Negative); CLARITY Clear (Clear); COLOR Yellow (Yellow); GLUCOSE Negative (Negative); KETONE Negative (Negative); LEUKO ESTERASE 3+ (Negative); NITRITE Negative (Negative); UROBILINOGEN 0.2 E.U./dl (0.0-1.0)
[2025-02-28 20:35] LABS: BACTERIA 1+; MUCOUS 1+; RBC 51-100 rbc/hpf (0-2); WBC 31-40 wbc/hpf (0-5)
[2025-02-28] MEDS ORDERED: FUROSEMIDE 40 MG/4 ML VIAL IV ONE (21:00)
[2025-02-28] MEDS ORDERED: FUROSEMIDE 20 MG TAB PO ONE (21:05)
== END 2025-02-28 21:09 | disposition home or self-care (01) ==
LOC: ED 18:52
PROVIDERS: Nurse Practitioner Family
DX: E87.70 Fluid overload, unspecified (principal); Z94.0 Kidney transplant status; Z88.8 Allergy status to other drugs, medicaments and biological substances; Z79.899 Other long term (current) drug therapy; Z79.82 Long term (current) use of aspirin; Z94.83 Pancreas transplant status; Z96.0 Presence of urogenital implants

== ENCOUNTER → 2025-03-03 | Outpatient (CLI) | payer OTHER | END | disposition home or self-care (01) | LOC: LAB 07:29 | PROVIDERS: ATTEND Internal Medicine Nephrology | DX: D84.9 Immunodeficiency, unspecified (principal); R79.9 Abnormal finding of blood chemistry, unspecified; Z48.298 Encounter for aftercare following other organ transplant; Z94.0 Kidney transplant status; Z94.83 Pancreas transplant status; Z79.60 Long term (current) use of unspecified immunomodulators and immunosuppressants; Z79.899 Other long term (current) drug therapy ==

== ENCOUNTER → 2025-03-19 | Outpatient (CLI) | payer OTHER ==
[2025-03-19 08:30] LABS: BASO % 0.2 % (0.0-1.0); EOS # 0.2 10*3/uL (0.0-0.4); EOS % 2.8 % (1.0-4.0); HEMATOCRIT 34.3 % (42.0-52.0); MEAN CELL VOLUME 94.5 fl (80.0-94.0); MEAN CORPUSCULAR HGB 27.8 pg (27.0-31.0); MEAN CORPUSCULAR HGB CONC 29.4 g/dl (33.0-37.0); MEAN PLATELET VOLUME 9.1 fl (9.6-12.3); MONO # 0.7 10*3/uL (0.1-1.0); MONO % 11.2 % (3.0-9.0); NEUT # 3.9 10*3/uL (2.3-7.9); PLATELET COUNT AUTOMATED 205 10*3/uL (130-400); RED BLOOD COUNT 3.63 10*6/uL (4.50-5.90); RED CELL DISTRI WIDTH 16.3 % (0-14.5); WHITE BLOOD COUNT 6.3 10*3/uL (4.8-10.8)
[2025-03-19 08:52] LABS: POTASSIUM 4.2 mmol/L (3.4-5.1); URIC ACID 7.8 mg/dL (3.7-9.2)
== END | disposition home or self-care (01) ==
LOC: LAB 08:09
PROVIDERS: ATTEND Internal Medicine Nephrology
DX: I12.9 Hypertensive chronic kidney disease with stage 1 through stage 4 chronic kidney disease, or unspecified chronic kidney disease (principal); E11.22 Type 2 diabetes mellitus with diabetic chronic kidney disease; N18.4 Chronic kidney disease, stage 4 (severe); E87.20 Acidosis, unspecified; D63.1 Anemia in chronic kidney disease; Z94.0 Kidney transplant status

== ENCOUNTER → 2025-05-31 | Outpatient (CLI) | payer OTHER ==
[2025-05-31 08:09] LABS: BASO # 0.0 10*3/uL (0.0-0.1); BASO % 0.1 % (0.0-1.0); EOS # 0.1 10*3/uL (0.0-0.4); EOS % 1.0 % (1.0-4.0); MEAN CELL VOLUME 92.0 fl (80.0-94.0); MEAN CORPUSCULAR HGB 27.1 pg (27.0-31.0); MEAN PLATELET VOLUME 9.5 fl (9.6-12.3); MONO # 0.9 10*3/uL (0.1-1.0); MONO % 10.5 % (3.0-9.0); NEUT # 5.5 10*3/uL (2.3-7.9); NEUT % 67.8 % (47.0-73.0); NUCLEATED RED BLOOD CELL 0.0 % (0.0-0.0); NUCLEATED RED BLOOD CELL 0.0 10*3/uL (0.0-0.0); PLATELET COUNT AUTOMATED 219 10*3/uL (130-400); RED CELL DISTRI WIDTH 15.1 % (0-14.5)
[2025-05-31 08:47] LABS: BUN 32.0 mg/dl (9-23)
== END ==
LOC: LAB 07:51
PROVIDERS: ATTEND Internal Medicine Nephrology
DX: R79.9 Abnormal finding of blood chemistry, unspecified (principal); D84.9 Immunodeficiency, unspecified; Z94.0 Kidney transplant status; Z94.83 Pancreas transplant status; Z79.60 Long term (current) use of unspecified immunomodulators and immunosuppressants; Z48.298 Encounter for aftercare following other organ transplant; Z79.899 Other long term (current) drug therapy

== ENCOUNTER → 2025-06-19 | Outpatient (CLI) | payer OTHER | END | disposition home or self-care (01) | LOC: LAB 08:06 | PROVIDERS: ATTEND Urology | DX: N40.1 Benign prostatic hyperplasia with lower urinary tract symptoms (principal); R31.9 Hematuria, unspecified ==

== ENCOUNTER 2025-07-26 13:59 | Emergency (ER) | payer OTHER ==
[2025-07-26 14:19] VITALS: BP 149/71
[2025-07-26 14:50] LABS: BASO # 0.0 10*3/uL (0.0-0.1); BASO % 0.1 % (0.0-1.0); EOS # 0.0 10*3/uL (0.0-0.4); EOS % 0.2 % (1.0-4.0); MEAN CELL VOLUME 91.3 fl (80.0-94.0); MEAN CORPUSCULAR HGB 26.9 pg (27.0-31.0); MEAN PLATELET VOLUME 9.1 fl (9.6-12.3); MONO # 0.4 10*3/uL (0.1-1.0); MONO % 4.5 % (3.0-9.0); NEUT # 8.3 10*3/uL (2.3-7.9); NEUT % 87.4 % (47.0-73.0); NUCLEATED RED BLOOD CELL 0.0 % (0.0-0.0); NUCLEATED RED BLOOD CELL 0.0 10*3/uL (0.0-0.0); PLATELET COUNT AUTOMATED 254 10*3/uL (130-400); RED CELL DISTRI WIDTH 16.0 % (0-14.5)
[2025-07-26 14:55] LABS: BILIRUBIN Negative (Negative); BLOOD 3+ (Negative); CLARITY Clear (Clear); COLOR Yellow (Yellow); KETONE Negative (Negative); LEUKO ESTERASE 3+ (Negative); NITRITE Negative (Negative); PH 8.0 (4.5-8.0); SPECIFIC GRAVITY 1.010 (1.001-1.030); UROBILINOGEN 0.2 E.U./dl (0.0-1.0)
[2025-07-26 15:06] LABS: BUN 36.0 mg/dl (9-23)
[2025-07-26 15:16] LABS: BACTERIA 1+; MUCOUS TRACE; RBC 31-40 rbc/hpf (0-2); WBC 16-20 wbc/hpf (0-5)
[2025-07-26] MEDS ORDERED: METHOCARBAMOL750 M1 PO (16:55)
== END 2025-07-26 17:26 | disposition home or self-care (01) ==
LOC: ED 13:59
PROVIDERS: Nurse Practitioner Family
DX: S30.0XXA Contusion of lower back and pelvis, initial encounter (principal); R10.9 Unspecified abdominal pain; I12.9 Hypertensive chronic kidney disease with stage 1 through stage 4 chronic kidney disease, or unspecified chronic kidney disease; E11.22 Type 2 diabetes mellitus with diabetic chronic kidney disease; N18.9 Chronic kidney disease, unspecified; I25.2 Old myocardial infarction; Z86.16 Personal history of COVID-19; Z87.440 Personal history of urinary (tract) infections; Z88.8 Allergy status to other drugs, medicaments and biological substances; W22.8XXA Striking against or struck by other objects, initial encounter; Y93.89 Activity, other specified; Y92.89 Other specified places as the place of occurrence of the external cause; Y99.8 Other external cause status

== ENCOUNTER 2025-08-17 17:21 | Emergency (ER) | payer OTHER ==
[~2025-08-17] VITALS: Ht 180.3 cm; Wt 67.5 kg
[~2025-08-17 17:21] MED LIST changes: +METHOCARBAMOL750 M1 PO
[2025-08-17 19:01] LABS: BACTERIA 2+; BILIRUBIN Negative (Negative); BLOOD 3+ (Negative); CLARITY Turbid (Clear); COLOR Yellow (Yellow); KETONE Negative (Negative); LEUKO ESTERASE 3+ (Negative); NITRITE Negative (Negative); PH 8.0 (4.5-8.0); RBC 21-30 rbc/hpf (0-2); SPECIFIC GRAVITY 1.005 (1.001-1.030); UROBILINOGEN 1.0 E.U./dl (0.0-1.0); WBC TNTC wbc/hpf (0-5)
[2025-08-17] MEDS ORDERED: CEPHALEXIN 500 MG CAP PO ONE (19:10)
[2025-08-17] MEDS ORDERED: CEPHALEXIN500 M1 PO (19:39)
[2025-08-18] MEDS ORDERED: BACTRIM DS 8001 EACH PO (10:54)
[2025-08-18] MEDS ORDERED: FEOSOL325 MG PO (10:55)
[2025-08-18] MEDS ORDERED: Rocaltrol0.25 MCG PO (10:56)
[2025-08-18] MEDS ORDERED: TAMSULOSIN HCL0.4 MG PO (10:57)
== END 2025-08-17 19:48 | disposition home or self-care (01) ==
LOC: ED 17:21
PROVIDERS: Emergency Medicine
DX: R33.9 Retention of urine, unspecified (principal); N39.0 Urinary tract infection, site not specified; I10 Essential (primary) hypertension; E11.9 Type 2 diabetes mellitus without complications; I25.10 Atherosclerotic heart disease of native coronary artery without angina pectoris; I25.2 Old myocardial infarction; E03.9 Hypothyroidism, unspecified; Z88.8 Allergy status to other drugs, medicaments and biological substances

== ENCOUNTER 2025-08-18 07:51 | Inpatient (IN) | payer OTHER ==
[~2025-08-18] VITALS: Ht 180.3 cm; Wt 64.9 kg
[~2025-08-18 07:51] MED LIST changes: +CEPHALEXIN500 M1 PO
[2025-08-18 08:06] VITALS: BP 116/63
[2025-08-18] MEDS ORDERED: Promethazine Hydrochloride 25 MG/ML VIAL IV ONE ×2 (08:20→20:15)
[2025-08-18] MEDS ORDERED: Lactated Ringer's Solution 1,000 ML IV SCH (08:20)
[2025-08-18 08:35] LABS: MEAN CELL VOLUME 89.5 fl (80.0-94.0); MEAN CORPUSCULAR HGB 27.4 pg (27.0-31.0); MEAN PLATELET VOLUME 9.2 fl (9.6-12.3); NUCLEATED RED BLOOD CELL 0.0 % (0.0-0.0); NUCLEATED RED BLOOD CELL 0.0 10*3/uL (0.0-0.0); PLATELET COUNT AUTOMATED 264 10*3/uL (130-400); RED CELL DISTRI WIDTH 14.7 % (0-14.5)
[2025-08-18 08:54] LABS: BUN 43.0 mg/dl (9-23)
[2025-08-18 09:04] LABS: MANUAL DIFF REFLEX YES
[2025-08-18 09:12] LABS: PLATELET SUFFICIENCY NORMAL (NORMAL)
[2025-08-18] MEDS ORDERED: CEFEPIME HCL IN DEXTROSE 5 % 50 ML IV ONE (10:25)
[2025-08-18] MEDS ORDERED: BACTRIM DS 8001 EACH PO (10:54)
[2025-08-18] MEDS ORDERED: FEOSOL325 MG PO (10:55)
[2025-08-18] MEDS ORDERED: Rocaltrol0.25 MCG PO (10:56)
[2025-08-18] MEDS ORDERED: TAMSULOSIN HCL0.4 MG PO (10:57)
[2025-08-18] MEDS ORDERED: Ondansetron Hydrochloride 4 MG/2 ML VIAL IV PRN (12:05)
[2025-08-18] MEDS ORDERED: ACETAMINOPHEN 325 MG TAB PO PRN (12:05)
[2025-08-18] MEDS ORDERED: BISACODYL 5 MG TAB PO PRN (12:05)
[2025-08-18 12:25] VITALS: BP 169/70
[2025-08-18] MEDS ORDERED: SODIUM CHLORIDE 0.9% 1,000 ML IV SCH (15:20)
[2025-08-18] MEDS ORDERED: SODIUM BICARBONATE 650 MG TAB PO SCH (18:00)
[2025-08-18 20:00] VITALS: BP 138/51
[2025-08-18 20:56] LABS: BILIRUBIN Negative (Negative); BLOOD 3+ (Negative); CLARITY Turbid (Clear); COLOR Yellow (Yellow); KETONE Negative (Negative); LEUKO ESTERASE 3+ (Negative); NITRITE Negative (Negative); PH 7.5 (4.5-8.0); SPECIFIC GRAVITY 1.015 (1.001-1.030); UROBILINOGEN 0.2 E.U./dl (0.0-1.0)
[2025-08-18 21:04] LABS: BACTERIA 2+; RBC 21-30 rbc/hpf (0-2); WBC TNTC wbc/hpf (0-5)
[2025-08-18] MEDS ORDERED: Mycophenolate Mofetil 250 MG CAP PO SCH (22:00)
[2025-08-18] MEDS ORDERED: CEFEPIME HCL IN DEXTROSE 5 % 50 ML IV SCH (22:00)
[2025-08-18] MEDS ORDERED: MED. FROM HOME 1 EACH EA PO SCH (22:00)
[2025-08-19] VITALS: BP 129/48
[2025-08-19] MEDS ORDERED: SLOWMAG71.5 MG PO (05:52)
[2025-08-19 06:26] LABS: MEAN CELL VOLUME 91.0 fl (80.0-94.0); MEAN CORPUSCULAR HGB 28.0 pg (27.0-31.0); MEAN PLATELET VOLUME 9.7 fl (9.6-12.3); NUCLEATED RED BLOOD CELL 0.0 % (0.0-0.0); NUCLEATED RED BLOOD CELL 0.0 10*3/uL (0.0-0.0); PLATELET COUNT AUTOMATED 218 10*3/uL (130-400); RED CELL DISTRI WIDTH 15.1 % (0-14.5)
[2025-08-19 06:31] LABS: MANUAL DIFF REFLEX YES
[2025-08-19 06:39] LABS: ACT PARTIAL THROMBO TIME 36.9 SECONDS (20.0-32.1)
[2025-08-19 07:15] LABS: PLATELET SUFFICIENCY NORMAL (NORMAL); VACUOLATION OF NEUTROPHILS SLIGHT
[2025-08-19 07:18] LABS: VITAMIN D, 25-HYDROXY 35.1 ng/mL (30-100)
[2025-08-19 08:00] VITALS: BP 147/65
[2025-08-19 08:02] LABS: BUN 42.0 mg/dl (9-23); FREE T4 1.07 ng/dl (0.89-1.76); LDL CHOLESTEROL 18.0 mg/dL (9-159); SGPT/ALT 25.0 U/L (5-49)
[2025-08-19] MEDS ORDERED: MAGNESIUM SULFATE 50 ML IV ONE (08:55)
[2025-08-19] MEDS ORDERED: SODIUM BICARBONATE 650 MG TAB PO SCH (10:00)
[2025-08-19] MEDS ORDERED: CALCITRIOL 0.25 MCG CAP PO SCH (10:00)
[2025-08-19] MEDS ORDERED: FERROUS SULFATE 325 MG TAB PO SCH (10:00)
[2025-08-19] MEDS ORDERED: ASPIRIN ENTERIC COATED 81 MG TAB PO SCH (10:00)
[2025-08-19] MEDS ORDERED: ATORVASTATIN CALCIUM 80 MG TAB PO SCH (10:00)
[2025-08-19] MEDS ORDERED: CITALOPRAM 20 MG TAB PO SCH (10:00)
[2025-08-19] MEDS ORDERED: Meropenem 50 ML IV SCH (10:10)
[2025-08-19] MEDS ORDERED: Ondansetron Hydrochloride 4 MG/2 ML VIAL IV PRN (10:13)
[2025-08-19 12:00] VITALS: BP 130/66
[2025-08-19 16:00] VITALS: BP 116/53
[2025-08-19 20:00] VITALS: BP 148/58
[2025-08-19] MEDS ORDERED: Promethazine Hydrochloride 25 MG/ML VIAL IV ONE (22:00)
[2025-08-19] MEDS ORDERED: Promethazine Hydrochloride 25 MG/ML VIAL IV PRN (22:00)
[2025-08-20] VITALS: BP 129/55
[2025-08-20] MEDS ORDERED: IBUPROFEN 400 MG TAB PO PRN (01:40)
[2025-08-20 07:14] LABS: MEAN CELL VOLUME 92.3 fl (80.0-94.0); MEAN CORPUSCULAR HGB 27.7 pg (27.0-31.0); MEAN PLATELET VOLUME 9.6 fl (9.6-12.3); NUCLEATED RED BLOOD CELL 0.0 % (0.0-0.0); NUCLEATED RED BLOOD CELL 0.0 10*3/uL (0.0-0.0); PLATELET COUNT AUTOMATED 194 10*3/uL (130-400); RED CELL DISTRI WIDTH 15.4 % (0-14.5)
[2025-08-20 07:37] LABS: BUN 46.0 mg/dl (9-23)
[2025-08-20 07:40] LABS: MANUAL DIFF REFLEX YES
[2025-08-20 07:53] LABS: PLATELET SUFFICIENCY NORMAL (NORMAL)
[2025-08-20 08:00] VITALS: BP 113/55
[2025-08-20] MEDS ORDERED: MED. FROM HOME 1 EACH EA PO SCH (10:00)
[2025-08-20 12:00] VITALS: BP 121/58
[2025-08-20 16:00] VITALS: BP 117/61
[2025-08-20 20:00] VITALS: BP 162/61
[2025-08-21] VITALS: BP 138/56
[2025-08-21 05:01] LABS: BUN 45.0 mg/dl (9-23)
[2025-08-21 06:06] LABS: MEAN CELL VOLUME 92.3 fl (80.0-94.0); MEAN CORPUSCULAR HGB 27.4 pg (27.0-31.0); MEAN PLATELET VOLUME 10.0 fl (9.6-12.3); NUCLEATED RED BLOOD CELL 0.0 % (0.0-0.0); NUCLEATED RED BLOOD CELL 0.0 10*3/uL (0.0-0.0); PLATELET COUNT AUTOMATED 214 10*3/uL (130-400); RED CELL DISTRI WIDTH 15.3 % (0-14.5)
[2025-08-21 06:09] LABS: MANUAL DIFF REFLEX YES
[2025-08-21 07:08] LABS: PLATELET SUFFICIENCY NORMAL (NORMAL)
[2025-08-21 08:00] VITALS: BP 146/59
[2025-08-21] MEDS ORDERED: OMNICEF300 MG PO (09:59)
[2025-08-23] MEDS ORDERED: Sulfamethoxazole/Trimethopri 1 TAB TAB PO SCH (10:00)
== END 2025-08-21 10:44 | disposition home or self-care (01) | DRG 720 ==
LOC: ED 07:51 → 4E 11:01 → EDHOLD 11:01 → 5E 11:37 → 4E 12:09
PROVIDERS: Emergency Medicine; Student in an Organized Health Care Education/Training Program; ADMIT Student in an Organized Health Care Education/Training Program; ATTEND Student in an Organized Health Care Education/Training Program
DX: A41.9 Sepsis, unspecified organism (principal); Z94.83 Pancreas transplant status; N39.0 Urinary tract infection, site not specified; N18.32 Chronic kidney disease, stage 3b; K31.84 Gastroparesis; E78.5 Hyperlipidemia, unspecified; I12.9 Hypertensive chronic kidney disease with stage 1 through stage 4 chronic kidney disease, or unspecified chronic kidney disease; N18.30 Chronic kidney disease, stage 3 unspecified; I25.10 Atherosclerotic heart disease of native coronary artery without angina pectoris; R65.20 Severe sepsis without septic shock; E87.8 Other disorders of electrolyte and fluid balance, not elsewhere classified; N13.9 Obstructive and reflux uropathy, unspecified; D84.9 Immunodeficiency, unspecified; E10.22 Type 1 diabetes mellitus with diabetic chronic kidney disease; E10.65 Type 1 diabetes mellitus with hyperglycemia; E10.43 Type 1 diabetes mellitus with diabetic autonomic (poly)neuropathy; I25.2 Old myocardial infarction; Z94.0 Kidney transplant status; Z88.8 Allergy status to other drugs, medicaments and biological substances; Z82.49 Family history of ischemic heart disease and other diseases of the circulatory system; Z83.3 Family history of diabetes mellitus; Z79.4 Long term (current) use of insulin

== ENCOUNTER → 2025-08-25 | Outpatient (CLI) | payer OTHER ==
[~2025-08-25] MED LIST changes: +BACTRIM DS 8001 EACH PO; +FEOSOL325 MG PO; +Rocaltrol0.25 MCG PO; +SLOWMAG71.5 MG PO; +TAMSULOSIN HCL0.4 MG PO
[2025-08-25 08:11] LABS: BASO # 0.0 10*3/uL (0.0-0.1); BASO % 0.2 % (0.0-1.0); EOS # 0.3 10*3/uL (0.0-0.4); EOS % 3.6 % (1.0-4.0); MEAN CELL VOLUME 91.5 fl (80.0-94.0); MEAN CORPUSCULAR HGB 27.2 pg (27.0-31.0); MEAN PLATELET VOLUME 8.9 fl (9.6-12.3); MONO # 1.0 10*3/uL (0.1-1.0); MONO % 11.1 % (3.0-9.0); NEUT # 5.5 10*3/uL (2.3-7.9); NEUT % 61.9 % (47.0-73.0); NUCLEATED RED BLOOD CELL 0.0 % (0.0-0.0); NUCLEATED RED BLOOD CELL 0.0 10*3/uL (0.0-0.0); PLATELET COUNT AUTOMATED 305 10*3/uL (130-400); RED CELL DISTRI WIDTH 14.9 % (0-14.5)
[2025-08-25 09:06] LABS: BUN 37.0 mg/dl (9-23); SGPT/ALT 74.0 U/L (5-49)
== END | disposition home or self-care (01) ==
LOC: LAB 07:49
PROVIDERS: ATTEND Internal Medicine Nephrology
DX: R68.89 Other general symptoms and signs (principal); R79.9 Abnormal finding of blood chemistry, unspecified; D64.9 Anemia, unspecified; Z94.0 Kidney transplant status; Z94.83 Pancreas transplant status; Z79.60 Long term (current) use of unspecified immunomodulators and immunosuppressants; Z48.298 Encounter for aftercare following other organ transplant; Z79.899 Other long term (current) drug therapy